=== PATIENT | male | born 1945 | race Caucasian/White ===

== ENCOUNTER 2018-08-23 18:55 | Observation (INO) | payer MEDICARE, OTHER, SELFPAY ==
[2018-08-23 18:59] VITALS: BMI 30.4
--- NOTE | 2018-08-23 19:20 | ECHOCS_ITS ---
Reason For Study: Chest Pain Procedure This was a 2D Doppler, Color Flow transthoracic echocardiogram. Contrast injection was performed. Exam performed portable in patient room. Left Ventricle Normal size and thickness. The estimated ejection fraction is 65 %. Stage 2 diastolic dysfunction. Septal motion consistent with IVCD. No regional wall motion abnormalities noted. Right Ventricle Moderately dilated right ventricle. Normal systolic function. Atria The left atrium is moderately enlarged. The right atrium is moderately enlarged. Normal atrial septum. Mitral Valve The mitral valve is structurally normal. No prolapse or stenosis seen. Mild (1+) mitral valve insufficiency. Tricuspid Valve Normal tricuspid valve. Mild (1+) tricuspid valve insufficiency. Right ventricular systolic pressure estimated to be 49 mmHg. Moderate pulmonary hypertension. Aortic Valve Trisinus/trileaflet aortic valve. Mild diffuse aortic valve thickening. There is no aortic stenosis. Trivial aortic valve insufficiency. Pulmonic Valve Normal pulmonic valve. Trivial pulmonic valve insufficiency. Great Vessels Normal aortic root. Normal arch. Normal inferior vena cava. Inferior vena cava collapse with sniff. Pericardium/Pleural No pericardial effusion. Medication Diluted definity 3ml given slow IV push to enhance endocardial definition. MMode/2D Measurements & Calculations LVIDd: 4.5 cm IVSd: 1.1 cm Ao root diam: 3.8 cm LVIDs: 2.6 cm LVPWd: 1.1 cm LA dimension: 4.0 cm RVDd: 3.9 cm FS: 42.8 % LAV(MOD-bp): 76.9 ml LA A4 area: 25.1 cm2 RA A4 area: 23.6 cm2 LAV(MOD-bp) Indexed: 36.8 ml/m2 LAV(MOD-sp2): 67.7 ml LAV(MOD-sp4): 85.2 ml Time Measurements MV dec time: 0.18 sec Doppler Measurements & Calculations MV E max duong: 113.9 cm/sec Lat Peak E' Duong: 3.4 cm/sec Med Peak E' Duong: 7.0 cm/sec MV A max duong: 85.0 cm/sec E/E' lat: 33.3 E/E' med: 16.3 MV E/A: 1.3 MV V2 max: 120.4 cm/sec MV P1/2t max duong: 121.3 cm/sec Ao V2 max: 134.9 cm/sec MV max P.8 mmHg MV P1/2t: 97.9 msec Ao max P.3 mmHg MV V2 mean: 62.5 cm/sec MV dec slope: 363.1 cm/sec2 Ao V2 mean: 90.9 cm/sec MV mean P.9 mmHg MVA(P1/2t): 2.2 cm2 Ao mean P.7 mmHg MV V2 VTI: 35.2 cm Ao V2 VTI: 29.0 cm LV V1 max: 115.6 cm/sec PA V2 max: 110.7 cm/sec TR max duong: 331.7 cm/sec LV V1 max P.3 mmHg TR max P.0 mmHg LV V1 mean P.1 mmHg LV V1 mean: 66.5 cm/sec LV V1 VTI: 24.7 cm Interpretation Summary The estimated ejection fraction is 65 %. Stage 2 diastolic dysfunction. Moderately dilated right ventricle. The left atrium is moderately enlarged. The right atrium is moderately enlarged. Mild (1+) mitral valve insufficiency. Mild (1+) tricuspid valve insufficiency. Right ventricular systolic pressure estimated to be 49 mmHg. Moderate pulmonary hypertension. The study was technically difficult. There is no comparison study available. Contrast injection was performed. Ordering Physician: Marimar Wang Referring Physician: Parvez Louise Performed By: Cam Dawson RCS
--- NOTE | 2018-08-23 19:20 | EKG12_ITS ---
Test Reason : Blood Pressure : / mmHG Vent. Rate : 055 BPM Atrial Rate : 055 BPM P-R Int : 198 ms QRS Dur : 154 ms QT Int : 530 ms P-R-T Axes : 060 065 068 degrees QTc Int : 507 ms Sinus bradycardia Right bundle branch block Abnormal ECG No previous ECGs available Confirmed by GRECIA SAUCEDA, SARI ([id number]), editorial assistant PATRICE GODWIN ([id number]) on 08/29/2018 2:06:33 PM Referred By: Marimar Wang Confirmed By:SARI PAIGE MD
[2018-08-23 19:26] VITALS: BMI 30.4
[2018-08-23 19:27] VITALS: PULSE 54
--- NOTE | 2018-08-23 19:27 | HP.PCM_ITS ---
Problem List (1) Chest pain Status: Acute Qualifiers: Chest pain type: unspecified Qualified Code(s): R07.9 - Chest pain, unspecified (2) Elevated troponin Status: Acute (3) Hypertension Status: Chronic Qualifiers: Hypertension type: essential hypertension Qualified Code(s): I10 - Essential (primary) hypertension History of Present Illness Date of Admission: 08/23/18 Chief Complaint: Chest pain - 1 day The patient is a 72 year old M past medical history of prostate cancer status post radiotherapy and chemotherapy, recently completed radiotherapy 3 weeks ago, chronic A. fib with RVR , hypertension, hypothyroidism comes in with shortness of breath as well as leg swelling noticed over the last 2 days. He has orthopnea and PND and sleeps on 2 pillows. He started complaining of chest pain worse today. Describes the chest pain as substernal, dull, associated with diaphoresis or nausea or vomiting. He describes a complex cardiac history of CABG in 1993, status post 2 stents, last cardiac cath was done in [facility] 5 years ago. He was seen in the [facility] ED and found to be in A. fib with RVR. He was given metoprolol 2.5 mg IV and was found to be intermittently in sinus bradycardia. In the ED, workup showed RBC count of 6.8, hemoglobin 11.9, platelet count of 202, sodium 138, potassium 4.3, chloride 100, bicarbonate 30, BUN 15, creatinine 1.03 , BNpep of 1300, troponins was 0.170, CTA of the chest was negative for PE. Past Medical History Past Medical History (Chronic Problems): Chronic Problems Hypertension (Chronic) Allergies water pills Adverse Reaction (Uncoded 08/23/18 19:22) gout Home Medications: Ambulatory Orders Medication Instructions Recorded Acetaminophen [Tylenol] 650 mg PO Q6H PRN 08/23/18 Albuterol Inhaler [Ventolin Hfa 2 puff INHALATION Q4H PRN PRN 08/23/18 (SP)] Amlodipine [Norvasc] 5 mg PO DAILY 08/23/18 Apixaban [Eliquis] 5 mg PO BID 08/23/18 Aspirin [Aspirin, Baby] 81 mg PO DAILY@0800 08/23/18 Atorvastatin Calcium [Lipitor] 40 mg PO QHS 08/23/18 Bicalutamide [Casodex] 150 mg PO QHS 08/23/18 Cholecalciferol (VIT D3) [Vitamin 1,000 unit PO DAILY 08/23/18 D] Clonidine HCl [Catapres] 0.1 mg PO BID PRN 08/23/18 Docusate Sodium [Colace] 100 mg PO BID 08/23/18 Levothyroxine [Synthroid] 112 mcg PO DAILY 08/23/18 Melatonin/Pyridoxine HCl (B6) 1 each PO QHS PRN 08/23/18 [Melatonin 3 mg Tablet] Metoprolol Succinate [Toprol Xl] 50 mg PO DAILY 08/23/18 Omeprazole [Prilosec] 40 mg PO DAILY 08/23/18 Sotalol HCl [Betapace AF (Beta 40 mg PO BID 08/23/18 Jennifer)] Trospium Chloride [Sanctura] 20 mg PO BID 08/23/18 traMADol [Ultram (G)] 50 mg PO Q12H PRN 08/23/18 Surgical History: cholecystectomy, total knee arthroplasty - right, - - s/p CABG, s/p 2 stent, last cardiac cath was 5 years ago Review of Systems Constitutional: Denies: Chills, Fever, Weight Change HEENT: Denies: Head Aches, Sinus Congestion, Sinus Drainage Cardiovascular: Denies: Chest Pain, Palpitations Respiratory: Denies: Cough, Shortness of breath at rest, Sputum production Gastrointestinal: Denies: Abdominal Pain, Nausea, Vomiting Genitourinary: Denies: Dysuria Musculoskeletal: Denies: Joint Pain, Joint Tenderness Skin: Denies: Rash, Wounds Neurological: Denies: Numbness, Tingling, Focal weakness Psychiatric: Denies: Anxiety, Depression, Homicidal Ideations, Suicidal Ideations Hematologic/ Lymphatic: Denies: Easy Bruising, Easy Bleeding VTE Information - Inpt Only VTE Present on Admission: No VTE Pharm Prophylaxis ordered?: Yes Patient Problems: Active and Suspected Problems Chest pain (Acute) Elevated troponin (Acute) - Physical Exam General: Alert, Oriented x3, Cooperative, No apparent distress, - - obese HEENT: Atraumatic, PERRLA, EOMI, Normocephalic Oral: Moist Mucosa Neck: Supple Lungs: Clear to auscultation, Normal air movement Cardiovascular: Regular rate, Regular Rhythm, Normal S1, Normal S2, No murmurs Abdomen: Bowel Sounds Present, Soft, Non Tender, Non-Distended, No Hepato- splenomegaly Extremities: No edema Skin: No rashes, No breakdown Musculoskeletal: No Tenderness to Palpation of Joints or Extremities Lymphatic: No Cervical, Supraclavicular, or Inguinal Adenopathy Neurological: Cranial nerves II-XII grossly intact, Neuro grossly intact Psych/Mental Status: Normal Affect, Appropriate Weight: 93.485 kg Body Mass Index (BMI) 30.4 Assessment/Plan All Active Problems Chest pain (Acute) Elevated troponin (Acute) 72 year old M past medical history of prostate cancer status post radiotherapy and chemotherapy, recently completed radiotherapy 3 weeks ago, chronic A. fib with RVR , hypertension, hypothyroidism comes in with shortness of breath as well as leg swelling noticed over the last 2 days. 1. Acute chest pain, atypical, known history of CAD status post CABG, status post stent, elevated troponin on admission at 0.172, no records in our system Plan: Admit to PCU, trend troponins, monitor on telemetry, repeat EKG, 2D-ECHO, cardiology consult 2. A. fib with RVR, rate controlled, on metoprolol and sotalol, patient has been going into bradycardia and A. fib, will hold sotalol tonight, continue only on metoprolol, continue to monitor vitals, cardiology consulted, continue on Eliquis 3. Acute CHF, unknown EF, patient follows up in [place] in [facility], admitting BNPep was more 1700, will get records from [facility], Start on Lasix 20mg IV BID, daily weights, strict I & Os. Patient expressed concern about the plan for Lasix as he reportedly got gout after use of Lasix, will check uric acid in the morning, start patient on prophylactic allopurinol. 4. Hypertension, controlled, continue home blood pressure medication 5. Hyperlipidemia, on statin 6. Hypothyroidism, on levothyroxine 7. DVT prophylaxis -on Eliquis Code Visit OBSV E&M: 89777 Initial observation care L3
[2018-08-23 19:47] VITALS: PULSE 141
[2018-08-23 19:59] VITALS: BP 134/74; PULSE 55; RESP 16; TEMP 36.6; O2SAT 97
[2018-08-23] MEDS: Docusate Sodium 100 MG Capsule PO (21:34)
[2018-08-23] MEDS: Atorvastatin Calcium 40 MG Tablet PO (21:34)
[2018-08-23] MEDS: Furosemide 20 MG/2 ML VIAL IV (21:35)
[2018-08-23] MEDS: Glucerna Shake 120 ML LIQUID PO (21:38)
[2018-08-23 21:43] VITALS: BP 136/72; PULSE 57; RESP 16; TEMP 36.6; O2SAT 96
[2018-08-23] MEDS: APIXABAN 5 MG TABLET PO (22:52)
[2018-08-23 23:03] VITALS: PULSE 58
[2018-08-23 23:06] LABS: Bedside Glucose 117 mg/dL (70-110)
[2018-08-24] VITALS (12 sets, daily range): BP systolic 131–152; BP diastolic 70–80; PULSE 58–73; RESP 16–18; TEMP 36.6–37.2; O2SAT 93–96
[2018-08-24 02:07] LABS: Absolute Lymphocyte Count 0.53 X10^3/ul (0.83-4.51); Absolute Neutrophil Count 4.5 X10^3/uL (2.0-7.7); Basophil# 0.02 X10^3/uL; Basophil% 0.3 % (0-1); Eosinophil# 0.24 X10^3/uL; Eosinophils% 4.1 % (0-5); Hematocrit 34.2 % (40-54); Hemoglobin 11.1 g/dl (13.0-16.5); Lymphocyte # 0.53 X10^3/ul (4.0); Lymphocyte % 9.1 % (19-41); Mean Corp Hgb Conc 32.5 g/gl (32-36); Mean Corpuscular Hgb 30.1 pg (27.0-32.0); Mean Corpuscular Volume 92.7 fL (80-94); Mean Platelet Vol. 10.2 fl (6.2-12.0); Monocyte# 0.58 X10^3/uL; Monocyte% 9.9 % (0-10); Neutrophil # 4.46 X10^3/uL (2.7-7.7); Neutrophil % 76.6 % (47-70); Platelet Count 189 K/mm3 (150-450); RBC Distribution Width CV 14.9 % (11.6-14.6); RBC Distribution Width SD 48.1 fl (35.1-43.9); Red Blood Count 3.69 M/mm3 (4.6-6.2); White Blood Count 5.8 K/mm3 (4.4-11.0)
[2018-08-24 02:09] LABS: International Normalized Ratio 1.7; Prothrombin Time (Protime)PT. 19.8 SECONDS (11.7-14.9)
[2018-08-24 02:10] LABS: Differential Indicated SCAN CRITERIA MET; POSITIVE COUNT NO; POSITIVE DIFFERENTIAL YES; POSITIVE MORPHOLOGY NO; Partial Thromboplast Time 35.7 Seconds (24.1-36.2)
[2018-08-24 02:28] LABS: Anion Gap 9 (5-15); BUN 13 mg/dL (7-18); BUN/Creat Ratio 13.8 RATIO (10-20); Calcium,Total 8.6 mg/dL (8.5-10.1); Chloride 101 mmol/L (98-107); Creatinine, Serum 0.94 mg/dL (0.70-1.30); EST Glomerular Filtration Rate 84 mL/min (>60); Est Glom Filt Rate - Afr Amer 101 mL/min (>60); Estimated Creatinine Clearance 72.08 ml/min; Glucose 101 mg/dL (74-106); Potassium 3.6 mmol/L (3.5-5.1); Sodium Level 139 mmol/L (136-145); Uric Acid 7.2 mg/dL (3.5-7.2)
[2018-08-24] MEDS: Acetaminophen 325 MG Tablet 650 MG PO ×3 (02:51→21:27)
[2018-08-24 03:00] LABS: Differential Comment SCANNED
--- NOTE | 2018-08-24 05:55 | RAD_ITS ---
STUDY: X-RAY CHEST REASON FOR EXAM: Male, 72 years old. Chest pain. TECHNIQUE: Single AP portable view of the chest. COMPARISON: None. FINDINGS: EKG electrodes are seen. Mild increased markings at the left lung base suggestive of left basilar atelectasis. There is no demonstrated pleural abnormality. Sternal cerclage wires and vascular clips are present from a prior sternotomy and coronary artery bypass graft procedure (CABG). Normal mediastinum and jesica. Normal visualized pulmonary arteries. Normal visualized aortic arch and descending thoracic aorta. There are diffuse degenerative changes of the visualized thoracic spine. Mild levoscoliosis. There is degenerative osteoarthritis of the bilateral shoulders. Moderate sized hiatal hernia. RAD/Chest 1 View (Portable) IMPRESSION: Mild increased markings at the left lung base suggestive of underlying atelectasis and/or scarring. Electronically Signed: Eugene Mondragon MD at 11:02 EST Tel [phone], Service support ,
--- NOTE | 2018-08-24 05:55 | EKG12_ITS ---
Test Reason : Blood Pressure : / mmHG Vent. Rate : 058 BPM Atrial Rate : 058 BPM P-R Int : 194 ms QRS Dur : 154 ms QT Int : 538 ms P-R-T Axes : 050 078 055 degrees QTc Int : 528 ms Sinus bradycardia Right bundle branch block Abnormal ECG When compared with ECG of 23-AUG-2018 19:46, MANUAL COMPARISON REQUIRED, DATA IS UNCONFIRMED Confirmed by GRECIA SAUCEDA, SARI ([id number]), editorial intern PATRICE GODWIN ([id number]) on 08/29/2018 2:04:18 PM Referred By: Marimar Wang Confirmed By:SARI PAIGE MD
[2018-08-24] MEDS: Levothyroxine 112 MCG Tablet PO (06:20)
[2018-08-24] MEDS: Aspirin 81 MG TAB.CHEW PO (08:14)
[2018-08-24] MEDS: Allopurinol 100 MG Tablet PO (08:14)
--- NOTE | 2018-08-24 10:48 | PCM.CONS.C ---
Problem List (1) Chest pain Status: Acute Qualifiers: Chest pain type: unspecified Qualified Code(s): R07.9 - Chest pain, unspecified (2) Elevated troponin Status: Acute (3) Hypertension Status: Chronic Qualifiers: Hypertension type: essential hypertension Qualified Code(s): I10 - Essential (primary) hypertension Reason for Consult Date of Consultation: 08/24/18 Reason for Consultation: Chest pain, coronary artery disease, non-STEMI, hypertension, diabetes, asthma History of Present Illness: The patient is a 72 year old M, former patient of Dr. Lopez, usually a [facility] patient, with a history of hypertension, hypercholesterolemia, diabetes, former smoker who quit in 1993, paroxysmal atrial fibrillation currently in normal sinus rhythm. In addition he has a history of coronary artery disease status post 5 vessel bypass surgery in 1993 at the [facility] at [facility]. I do not have the details of his catheterization but reportedly according to the patient a repeat catheterization done about 5 years ago demonstrated 4 out of 5 grafts to be occluded and that medical management was invoked at that time. He was told that there were no other areas that could be stented. Superimposed upon this the patient has had 4 stents in his left leg, one stent in his right leg, and 2 stents in his heart at [facility] by Dr. Lopez and colleagues about 10 years ago. Patient was doing well until around this weekend when he developed swelling in his legs, shortness of breath, and severe chest pain with no associated nausea vomiting or sweating. Patient reported to [facility] was found to have normal sinus rhythm with occasional bursts of SVT which were self terminating. His initial troponin was 0.172, and he was transferred here for further care. On further history he denies any exertional chest pain, angina and has been undergoing x-ray therapy for prostate cancer directed towards his pelvis for the last 8 weeks, completed about 3 weeks ago. He states that it is not metastatic. Currently the patient is on Eliquis for paroxysmal atrial fibrillation and has been compliant with that. Chest x-ray showed no significant pulmonary infiltrates. He has no significant edema this morning. [] Past Medical History Allergies/Adverse Reactions: Allergies water pills Adverse Reaction (Uncoded 08/23/18 19:22) gout Home Medications: Ambulatory Orders Medication Instructions Recorded Acetaminophen [Tylenol] 650 mg PO Q6H PRN 08/23/18 Albuterol Inhaler [Ventolin Hfa 2 puff INHALATION Q4H PRN PRN 08/23/18 (SP)] Amlodipine [Norvasc] 5 mg PO DAILY 08/23/18 Apixaban [Eliquis] 5 mg PO BID 08/23/18 Aspirin [Aspirin, Baby] 81 mg PO DAILY@0800 08/23/18 Atorvastatin Calcium [Lipitor] 40 mg PO QHS 08/23/18 Bicalutamide [Casodex] 150 mg PO QHS 08/23/18 Cholecalciferol (VIT D3) [Vitamin 1,000 unit PO DAILY 08/23/18 D] Clonidine HCl [Catapres] 0.1 mg PO BID PRN 08/23/18 Docusate Sodium [Colace] 100 mg PO BID 08/23/18 Levothyroxine [Synthroid] 112 mcg PO DAILY 08/23/18 Melatonin/Pyridoxine HCl (B6) 1 each PO QHS PRN 08/23/18 [Melatonin 3 mg Tablet] Metoprolol Succinate [Toprol Xl] 50 mg PO DAILY 08/23/18 Omeprazole [Prilosec] 40 mg PO DAILY 08/23/18 Sotalol HCl [Betapace AF (Beta 40 mg PO BID 08/23/18 Jennifer)] Trospium Chloride [Sanctura] 20 mg PO BID 08/23/18 traMADol [Ultram (G)] 50 mg PO Q12H PRN 08/23/18 Past Medical History (Chronic Problems): Chronic Problems Hypertension (Chronic) Surgical History: cholecystectomy, total knee arthroplasty - right, - - s/p CABG, s/p 2 stent, last cardiac cath was 5 years ago Smoking Status: Former smoker Tobacco Use: Cigarettes Review of Systems - Review of Systems General: Denies: Fever, Night Sweats, Fatigue Cardiovascular: Reports: Chest Discomfort, Chest Discomfort at Rest, Chest Heaviness, Shortness of Breath, Peripheral Edema. Denies: Orthopnea, PND, Palpitations, Lightheadedness, Dizziness, Near Syncope, Syncope Respiratory: Denies: Cough, Sputum Production, Hemoptysis Gastrointestinal: Denies: Hematemesis, Hematochezia, Melena Genitourinary: Denies: Dysuria, Hematuria Skin: Denies: Rash Subjectve: Patient laying in bed, no acute distress. Objective: Vital Signs Temp Pulse Resp BP Pulse Ox 98.5 F 58 L 16 140/72 H 93 08/24/18 03:42 08/24/18 07:16 08/24/18 03:42 08/24/18 03:42 08/24/18 03:43 Oxygen Delivery Method Room Air Weight: 205 lb 4.006 oz Body Mass Index (BMI) 30.4 Intake and Output for Last 24 Hours 08/22/18 08/23/18 08/24/18 23:59 23:59 23:59 Intake Total 240 / 240 Output Total 375 / 375 Balance -135 / -135 General: Awake, Alert, Oriented x 3 HEENT: PERRL, EOMI, Sclera Non Icteric Neck: Supple, Good ROM, No Lymph Node Enlargement Lungs: Clear to auscultation Cardiovascular: Regular Rhythm, Normal S1, Normal S2, No Murmurs, No Rubs, No Gallops Vascular: No Carotid Bruits, Normal Femoral Pulses, Normal Radial Pulses, Normal Dorsalis Pedal Pulse, Normal Posterior Tibial Pulses Abdomen: Bowel Sounds Present, Soft, Non Tender, No HSM, No Organomegaly Extremities: No Cyanosis, No Clubbing, No edema Neurological: No Focal Motor or Sensory Deficit 08/23/18 20:42: Troponin I 0.173 H 08/23/18 23:08: Troponin I 0.160 H 08/24/18 02:00: Sodium 139, Potassium 3.6, Chloride 101, Carbon Dioxide 29.0, Anion Gap 9, BUN 13, Creatinine 0.94, Est GFR (MDRD) Af Amer 101, Est GFR (MDRD) Non-Af 84, BUN/Creatinine Ratio 13.8, Glucose 101, Uric Acid 7.2, Calcium 8.6 08/24/18 02:00: WBC 5.8, RBC 3.69 L, Hgb 11.1 L, Hct 34.2 L, MCV 92.7, MCH 30.1, MCHC 32.5, RDW 14.9 H, RDW Differential 48.1 H, Plt Count 189, MPV 10.2, Immature Gran % (Auto) 0.000, Neut % (Auto) 76.6 H, Lymph % (Auto) 9.1 L, Porter % (Auto) 9.9, Eos % (Auto) 4.1, Baso % (Auto) 0.3, Absolute Neuts (auto) 4.5, Total Counted Not Reportable 08/24/18 02:00: Troponin I 0.149 H 08/24/18 02:00: PT 19.8 H, INR 1.7, APTT 35.7 Rhythm: Normal sinus rhythm with occasional PVCs and ventricular couplets. EKG: Normal sinus rhythm with right bundle branch block, no acute changes. ECHO: Pending Stress Test: Cardiac Cath: PCI: CT Surgery: Holter monitor: EPS: PPM: CXR: Chest CT Scan: Assessment/Plan 1. Coronary artery disease: The patient appears to have significant multivessel coronary artery disease and is status post 5 vessel bypass in 1993. According to the patient and his daughter, 4 out of his 5 grafts have occluded, as well as his stents. It is my impression the patient may have only his CLAIRE to his LAD patent at this time. He was told that there could be no further intervention and no repeat bypass recommended a proximally 5 years ago with a catheterization at the [facility] in [facility]. This point I would continue the patient on baby aspirin, hold his Eliquis in case he may require repeat catheterization, and obtain his old catheterization films and report from the HI at [facility]. After reviewing the catheterization films, we will determine whether he would benefit from repeat catheterization. 2. Prostate cancer: Would recommend a d-dimer to determine if the patient had a possible pulmonary embolism. If this is abnormal he may require a CT scan of the chest to rule out pulmonary embolism. 3. Atrial fibrillation: The patient is currently normal sinus rhythm but appears to have burst of SVT which may be causing him his symptoms. Continue beta-jennifer therapy at current rate. 4. Hyperlipidemia: Recommend obtaining a fasting lipid profile. His LDL should be less than 70. Continue Lipitor. 5. Thank you very much for the opportunity to participate in the cardiac care of your patient. Consultation time took place between 10 AM and 10:35 AM. Discussed with patient and his daughter. Code Visit Inpatient E&M: 63960 Init Hosp L2
--- NOTE | 2018-08-24 10:52 | CON.PCM_ITS ---
Problem List (1) Chest pain Status: Acute Qualifiers: Chest pain type: unspecified Qualified Code(s): R07.9 - Chest pain, unspecified (2) Elevated troponin Status: Acute (3) Hypertension Status: Chronic Qualifiers: Hypertension type: essential hypertension Qualified Code(s): I10 - Essential (primary) hypertension Reason for Consult Date of Consultation: 08/24/18 Reason for Consultation: Chest pain, coronary artery disease, non-STEMI, hypertension, diabetes, asthma History of Present Illness: The patient is a 72 year old M, former patient of Dr. Lopez, usually a [facility] patient, with a history of hypertension, hypercholesterolemia, diabetes, former smoker who quit in 1993, paroxysmal atrial fibrillation currently in normal sinus rhythm. In addition he has a history of coronary artery disease status post 5 vessel bypass surgery in 1993 at the [facility] at [facility]. I do not have the details of his catheterization but reportedly according to the patient a repeat catheterization done about 5 years ago demonstrated 4 out of 5 grafts to be occluded and that medical management was invoked at that time. He was told that there were no other areas that could be stented. Superimposed upon this the patient has had 4 stents in his left leg, one stent in his right leg, and 2 stents in his heart at [facility] by Dr. Lopez and colleagues about 10 years ago. Patient was doing well until around this weekend when he developed swelling in his legs, shortness of breath, and severe chest pain with no associated nausea vomiting or sweating. Patient reported to [facility] was found to have normal sinus rhythm with occasional bursts of SVT which were self terminating. His initial troponin was 0.172, and he was transferred here for further care. On further history he denies any exertional chest pain, angina and has been undergoing x-ray therapy for prostate cancer directed towards his pelvis for the last 8 weeks, completed about 3 weeks ago. He states that it is not metastatic. Currently the patient is on Eliquis for paroxysmal atrial fibrillation and has been compliant with that. Chest x-ray showed no significant pulmonary infiltrates. He has no significant edema this morning. [] Past Medical History Allergies/Adverse Reactions: Allergies water pills Adverse Reaction (Uncoded 08/23/18 19:22) gout Home Medications: Ambulatory Orders Medication Instructions Recorded Acetaminophen [Tylenol] 650 mg PO Q6H PRN 08/23/18 Albuterol Inhaler [Ventolin Hfa 2 puff INHALATION Q4H PRN PRN 08/23/18 (SP)] Amlodipine [Norvasc] 5 mg PO DAILY 08/23/18 Apixaban [Eliquis] 5 mg PO BID 08/23/18 Aspirin [Aspirin, Baby] 81 mg PO DAILY@0800 08/23/18 Atorvastatin Calcium [Lipitor] 40 mg PO QHS 08/23/18 Bicalutamide [Casodex] 150 mg PO QHS 08/23/18 Cholecalciferol (VIT D3) [Vitamin 1,000 unit PO DAILY 08/23/18 D] Clonidine HCl [Catapres] 0.1 mg PO BID PRN 08/23/18 Docusate Sodium [Colace] 100 mg PO BID 08/23/18 Levothyroxine [Synthroid] 112 mcg PO DAILY 08/23/18 Melatonin/Pyridoxine HCl (B6) 1 each PO QHS PRN 08/23/18 [Melatonin 3 mg Tablet] Metoprolol Succinate [Toprol Xl] 50 mg PO DAILY 08/23/18 Omeprazole [Prilosec] 40 mg PO DAILY 08/23/18 Sotalol HCl [Betapace AF (Beta 40 mg PO BID 08/23/18 Jennifer)] Trospium Chloride [Sanctura] 20 mg PO BID 08/23/18 traMADol [Ultram (G)] 50 mg PO Q12H PRN 08/23/18 Past Medical History (Chronic Problems): Chronic Problems Hypertension (Chronic) Surgical History: cholecystectomy, total knee arthroplasty - right, - - s/p CABG, s/p 2 stent, last cardiac cath was 5 years ago Smoking Status: Former smoker Tobacco Use: Cigarettes Review of Systems - Review of Systems General: Denies: Fever, Night Sweats, Fatigue Cardiovascular: Reports: Chest Discomfort, Chest Discomfort at Rest, Chest Heaviness, Shortness of Breath, Peripheral Edema. Denies: Orthopnea, PND, Palpitations, Lightheadedness, Dizziness, Near Syncope, Syncope Respiratory: Denies: Cough, Sputum Production, Hemoptysis Gastrointestinal: Denies: Hematemesis, Hematochezia, Melena Genitourinary: Denies: Dysuria, Hematuria Skin: Denies: Rash Subjectve: Patient laying in bed, no acute distress. Objective: Vital Signs Temp Pulse Resp BP Pulse Ox 98.5 F 58 L 16 140/72 H 93 08/24/18 03:42 08/24/18 07:16 08/24/18 03:42 08/24/18 03:42 08/24/18 03:43 Oxygen Delivery Method Room Air Weight: 205 lb 4.006 oz Body Mass Index (BMI) 30.4 Intake and Output for Last 24 Hours 08/22/18 08/23/18 08/24/18 23:59 23:59 23:59 Intake Total 240 / 240 Output Total 375 / 375 Balance -135 / -135 General: Awake, Alert, Oriented x 3 HEENT: PERRL, EOMI, Sclera Non Icteric Neck: Supple, Good ROM, No Lymph Node Enlargement Lungs: Clear to auscultation Cardiovascular: Regular Rhythm, Normal S1, Normal S2, No Murmurs, No Rubs, No Gallops Vascular: No Carotid Bruits, Normal Femoral Pulses, Normal Radial Pulses, Normal Dorsalis Pedal Pulse, Normal Posterior Tibial Pulses Abdomen: Bowel Sounds Present, Soft, Non Tender, No HSM, No Organomegaly Extremities: No Cyanosis, No Clubbing, No edema Neurological: No Focal Motor or Sensory Deficit 08/23/18 20:42: Troponin I 0.173 H 08/23/18 23:08: Troponin I 0.160 H 08/24/18 02:00: Sodium 139, Potassium 3.6, Chloride 101, Carbon Dioxide 29.0, Anion Gap 9, BUN 13, Creatinine 0.94, Est GFR (MDRD) Af Amer 101, Est GFR (MDRD) Non-Af 84, BUN/Creatinine Ratio 13.8, Glucose 101, Uric Acid 7.2, Calcium 8.6 08/24/18 02:00: WBC 5.8, RBC 3.69 L, Hgb 11.1 L, Hct 34.2 L, MCV 92.7, MCH 30.1, MCHC 32.5, RDW 14.9 H, RDW Differential 48.1 H, Plt Count 189, MPV 10.2, Immature Gran % (Auto) 0.000, Neut % (Auto) 76.6 H, Lymph % (Auto) 9.1 L, [place] % (Auto) 9.9, Eos % (Auto) 4.1, Baso % (Auto) 0.3, Absolute Neuts (auto) 4.5, Total Counted Not Reportable 08/24/18 02:00: Troponin I 0.149 H 08/24/18 02:00: PT 19.8 H, INR 1.7, APTT 35.7 Rhythm: Normal sinus rhythm with occasional PVCs and ventricular couplets. EKG: Normal sinus rhythm with right bundle branch block, no acute changes. ECHO: Pending Stress Test: Cardiac Cath: PCI: CT Surgery: Holter monitor: EPS: PPM: CXR: Chest CT Scan: Assessment/Plan 1. Coronary artery disease: The patient appears to have significant multivessel coronary artery disease and is status post 5 vessel bypass in 1993. According to the patient and his daughter, 4 out of his 5 grafts have occluded, as well as his stents. It is my impression the patient may have only his CLAIRE to his LAD patent at this time. He was told that there could be no further intervention and no repeat bypass recommended a proximally 5 years ago with a catheterization at the [facility] in [facility]. This point I would continue the patient on baby aspirin, hold his Eliquis in case he may require repeat catheterization, and obtain his old catheterization films and report from the [facility] at [facility]. After reviewing the catheterization films, we will determine whether he would benefit from repeat catheterization. 2. Prostate cancer: Would recommend a d-dimer to determine if the patient had a possible pulmonary embolism. If this is abnormal he may require a CT scan of the chest to rule out pulmonary embolism. 3. Atrial fibrillation: The patient is currently normal sinus rhythm but appears to have burst of SVT which may be causing him his symptoms. Continue beta-jennifer therapy at current rate. 4. Hyperlipidemia: Recommend obtaining a fasting lipid profile. His LDL should be less than 70. Continue Lipitor. 5. Thank you very much for the opportunity to participate in the cardiac care of your patient. Consultation time took place between 10 AM and 10:35 AM. Discussed with patient and his daughter. Code Visit Inpatient E&M: 37187 Init Hosp L2
[2018-08-24] MEDS: Docusate Sodium 100 MG Capsule PO (11:03)
[2018-08-24] MEDS: Tolterodine Tartrate 2 MG CAP.SA PO (11:03)
[2018-08-24] MEDS: Metoprolol(XL)Succ 50 MG Tablet PO (11:04)
[2018-08-24] MEDS: Furosemide 20 MG/2 ML VIAL IV ×2 (11:04→18:30)
[2018-08-24] MEDS: Pantoprazole Sodium 40 MG Tablet PO (11:04)
[2018-08-24] MEDS: amLODIPine 5 MG Tablet PO (11:04)
[2018-08-24] MEDS: 0.9% NaCl Peripheral Flush Adult/Peds IV ×2 (11:07→18:30)
[2018-08-24 11:21] LABS: Bedside Glucose 96 mg/dL (70-110)
[2018-08-24 11:43] LABS: Cholesterol 128 mg/dL (200); High Density Lipoprotein 37 mg/dL; Triglycerides 142 mg/dL; Very Low Density Lipoprotein 28 mg/dL (5-40)
[2018-08-24 11:45] LABS: D-Dimer Quantitative (DVT/PE) 0.38 FEU/ug/m (0.27-0.49)
--- NOTE | 2018-08-24 13:52 | PCM.PROGNOTE ---
Patient Problems: Active and Suspected Problems Chest pain (Acute) Elevated troponin (Acute) Subjective: Patient seen and examined. Denies further chest pain. Denies shortness of breath. No other current complaints. Possible repeat cardiac catheterization, awaiting old cath films from [place]. - Physical Exam General: Alert, Oriented x3, Cooperative HEENT: Atraumatic, PERRLA, EOMI, Normocephalic Neck: Supple, No JVD, Negative Carotid Bruits Lungs: Clear to auscultation, Normal air movement Cardiovascular: Regular rate, Regular Rhythm, Normal S1, Normal S2, No murmurs Abdomen: Bowel Sounds Present, Soft, Non Tender, Non-Distended Extremities: No clubbing, No cyanosis, No edema, Capillary Refill Less than 3 Seconds Skin: No rashes, No breakdown Musculoskeletal: No Tenderness to Palpation of Joints or Extremities Neurological: Cranial nerves II-XII grossly intact, Neuro grossly intact Psych/Mental Status: Normal Affect, Appropriate Vital Signs Temp Pulse Resp BP Pulse Ox 98.2 F 68 16 152/70 H 96 08/24/18 10:40 08/24/18 11:14 08/24/18 10:40 08/24/18 10:40 08/24/18 10:40 Oxygen Delivery Method Room Air Weight: 205 lb 4.006 oz Body Mass Index (BMI) 30.4 Intake and Output for Last 24 Hours 08/22/18 08/23/18 08/24/18 23:59 23:59 23:59 Intake Total 240 / 240 200 / 200 Output Total 375 / 375 Balance -135 / -135 200 / 200 Laboratory Tests Past 24 Hrs 08/23/18 08/23/18 08/24/18 20:42 23:08 02:00 WBC RBC Hgb Hct MCV MCH MCHC RDW RDW Differential Plt Count MPV Immature Gran % (Auto) Neut % (Auto) Lymph % (Auto) [place] % (Auto) Eos % (Auto) Baso % (Auto) Absolute Neuts (auto) Absolute Lymphs (auto) Total Counted Differential Comment PT INR APTT D-Dimer Quant (PE/DVT) Sodium 139 Potassium 3.6 Chloride 101 Carbon Dioxide 29.0 Anion Gap 9 BUN 13 Creatinine 0.94 Estim Creat Clear Calc 72.08 Est GFR (MDRD) Af Amer 101 Est GFR (MDRD) Non-Af 84 BUN/Creatinine Ratio 13.8 Glucose 101 Uric Acid 7.2 Calcium 8.6 Troponin I 0.173 H 0.160 H Triglycerides Cholesterol LDL Cholesterol VLDL Cholesterol HDL Cholesterol 08/24/18 08/24/18 08/24/18 02:00 02:00 02:00 WBC 5.8 RBC 3.69 L Hgb 11.1 L Hct 34.2 L MCV 92.7 MCH 30.1 MCHC 32.5 RDW 14.9 H RDW Differential 48.1 H Plt Count 189 MPV 10.2 Immature Gran % (Auto) 0.000 Neut % (Auto) 76.6 H Lymph % (Auto) 9.1 L [place] % (Auto) 9.9 Eos % (Auto) 4.1 Baso % (Auto) 0.3 Absolute Neuts (auto) 4.5 Absolute Lymphs (auto) 0.53 L Total Counted Not Reportable Differential Comment SCANNED PT 19.8 H INR 1.7 APTT 35.7 D-Dimer Quant (PE/DVT) Sodium Potassium Chloride Carbon Dioxide Anion Gap BUN Creatinine Estim Creat Clear Calc Est GFR (MDRD) Af Amer Est GFR (MDRD) Non-Af BUN/Creatinine Ratio Glucose Uric Acid Calcium Troponin I 0.149 H Triglycerides Cholesterol LDL Cholesterol VLDL Cholesterol HDL Cholesterol 08/24/18 08/24/18 02:00 02:00 WBC RBC Hgb Hct MCV MCH MCHC RDW RDW Differential Plt Count MPV Immature Gran % (Auto) Neut % (Auto) Lymph % (Auto) [place] % (Auto) Eos % (Auto) Baso % (Auto) Absolute Neuts (auto) Absolute Lymphs (auto) Total Counted Differential Comment PT INR APTT D-Dimer Quant (PE/DVT) 0.38 Sodium Potassium Chloride Carbon Dioxide Anion Gap BUN Creatinine Estim Creat Clear Calc Est GFR (MDRD) Af Amer Est GFR (MDRD) Non-Af BUN/Creatinine Ratio Glucose Uric Acid Calcium Troponin I Triglycerides 142 Cholesterol 128 LDL Cholesterol 63 VLDL Cholesterol 28 HDL Cholesterol 37 L POC Glucose 08/24/18 08/23/18 11:11 22:56 POC Glucose 96 117 H Medical Necessity - Tobacco Use Smoking Status: Former smoker Tobacco Use: Cigarettes Assessment/Plan All Active Problems Chest pain (Acute) Elevated troponin (Acute) 1. Chest pain, indeterminate troponin-underlying history of CAD status post CABG and stents. Cardiology following. Continue aspirin, statin, beta-parveen. Echocardiogram shows an EF of 65%. [facility] Records requested from prior caths. Possible repeat catheterization. Eliquis on hold. Continue aspirin, statin, beta-parveen. 2. Atrial fibrillation with RVR-currently sinus rhythm. Continue metoprolol. Eliquis on hold. 3. Acute on chronic diastolic CHF-BNP greater than 1700. Echocardiogram shows an EF of 65%, stage II diastolic dysfunction, mild mitral valve insufficiency, mild tricuspid valve insufficiency, RVSP estimated to be 49 mmHg. Continue IV Lasix. Strict I&O. Daily weight. Cardiology following. 4. Hyperlipidemia-continue statin. 5. Hypertension-stable, continue home amlodipine, metoprolol regimen. Sotalol on hold. 6. GERD-continue PPI. 7. Hypothyroidism-continue Synthroid regimen. 8. Prostate cancer-status post radiation and chemotherapy. Completed treatment 3 weeks ago. Continue home medication regimen. DVT prophylaxis- SCDs. Eliquis on hold due to plans for cath. This patient was seen by LUIS ENRIQUE Schwarz under the supervision of Dr. Busby.
[2018-08-24] MEDS: Glucerna Shake 120 ML LIQUID PO ×3 (14:07→21:26)
--- NOTE | 2018-08-24 15:54 | CHAPLAIN ---
Type of Pastoral Visit _x__ Initial Visit ___ Follow-up Visit ___ On-call Visit ___ General Patient Visit ___ Spiritual Assessment ___ Family Conference ___ Bereavement ___ Rapid Response ___ Code Blue ___ Other (describe below) Pastoral Care Referral From _x__ Patient ___ Family ___ Nurse ___ Physician ___ Plum Packer ___ Crusher Loader Equipment Operator ___ Other (describe below) Sacrament/Intervention _x__ Active listening ___ Anointing ___ Jainism ___ Bereavement ___ Communion ___ Charla exploration ___ ___ Life review ___ Prayer ___ Reconciliation ___ Sacrament of Sick ___ Supportive presence ___ Wedding ___ Other (describe below) Pastoral Comments two daughters are with patient in the room; story unfolds that spouse of pt is also admitted to the hospital at same time; patient has ongoing health concerns and is normally a [facility] pt; [place] did not have beds at this time; pt says that he likes this hospital and glad he is here, especially because is also admitted here
[2018-08-24] MEDS: Atorvastatin Calcium 40 MG Tablet PO (21:27)
[2018-08-24] MEDS: MELATONIN 3 MG TABLET PO (21:28)
[2018-08-25] VITALS (7 sets, daily range): BP systolic 118–135; BP diastolic 54–67; PULSE 58–75; RESP 16–20; TEMP 36.4–37.2; O2SAT 93–97
[2018-08-25 01:06] LABS: Bedside Glucose 119 mg/dL (70-110)
[2018-08-25] MEDS: Levothyroxine 112 MCG Tablet PO (05:21)
[2018-08-25 06:50] LABS: Anion Gap 10 (5-15); BUN 20 mg/dL (7-18); Calcium,Total 8.7 mg/dL (8.5-10.1); Chloride 101 mmol/L (98-107); EST Glomerular Filtration Rate 78 mL/min (>60); Est Glom Filt Rate - Afr Amer 95 mL/min (>60); Estimated Creatinine Clearance 67.75 ml/min; Glucose 107 mg/dL (74-106); Potassium 3.6 mmol/L (3.5-5.1); Sodium Level 140 mmol/L (136-145)
[2018-08-25] MEDS: Glucerna Shake 120 ML LIQUID PO (09:52)
[2018-08-25] MEDS: Docusate Sodium 100 MG Capsule PO (09:52)
[2018-08-25] MEDS: Allopurinol 100 MG Tablet PO (09:53)
[2018-08-25] MEDS: Metoprolol(XL)Succ 50 MG Tablet PO (09:53)
[2018-08-25] MEDS: amLODIPine 5 MG Tablet PO (09:53)
[2018-08-25] MEDS: Pantoprazole Sodium 40 MG Tablet PO (09:53)
[2018-08-25] MEDS: Aspirin 81 MG TAB.CHEW PO (09:53)
[2018-08-25] MEDS: Tolterodine Tartrate 2 MG CAP.SA PO (09:54)
[2018-08-25 10:06] LABS: Bedside Glucose 107 mg/dL (70-110)
--- NOTE | 2018-08-25 10:26 | PCM.PN.CARD ---
Subjectve: Patient doing better this morning, had no chest pain or shortness of breath with basic ambulation to the bathroom. [facility] although the dates on the document appear to be sooner than that. It appears the patient has occlusion of his vein graft to his RCA and circumflex system, and occluded LAD, an occluded RCA, a patent CLAIRE to the LAD, a 20% ostial left main, and a 40% distal left circumflex and a small vessel. Unfortunately the films did not come with the patient. Patient reports his breathing is much better after diuretic therapy. Objective: Vital Signs Temp Pulse Resp BP Pulse Ox 98.6 F 62 16 126/54 H 93 08/25/18 08:31 08/25/18 09:53 08/25/18 08:31 08/25/18 08:31 08/25/18 08:31 Oxygen Delivery Method CPAP Weight: 206 lb 2.115 oz Body Mass Index (BMI) 30.4 Intake and Output for Last 24 Hours 08/23/18 08/24/18 08/25/18 23:59 23:59 23:59 Intake Total 240 / 240 920 / 920 20 Output Total 375 / 375 Balance -135 / -135 920 / 920 General: Awake, Alert, Oriented x 3 HEENT: PERRL, EOMI, Sclera Non Icteric Neck: Supple, Good ROM, No Lymph Node Enlargement Lungs: Clear to auscultation Cardiovascular: Regular Rhythm, Normal S1, Normal S2, No Murmurs, No Rubs, No Gallops Vascular: No Carotid Bruits, Normal Femoral Pulses, Normal Radial Pulses, Normal Dorsalis Pedal Pulse, Normal Posterior Tibial Pulses Abdomen: Bowel Sounds Present, Soft, Non Tender, No HSM, No Organomegaly Extremities: No Cyanosis, No Clubbing, No edema Neurological: No Focal Motor or Sensory Deficit 08/24/18 02:00: D-Dimer Quant (PE/DVT) 0.38 08/24/18 02:00: Triglycerides 142, Cholesterol 128, LDL Cholesterol 63, VLDL Cholesterol 28, HDL Cholesterol 37 L 08/25/18 06:14: Sodium 140, Potassium 3.6, Chloride 101, Carbon Dioxide 29.0, Anion Gap 10, BUN 20 H, Creatinine 1.00, Est GFR (MDRD) Af Amer 95, Est GFR (MDRD) Non-Af 78, BUN/Creatinine Ratio 20.0, Glucose 107 H, Calcium 8.7 Rhythm: EKG: ECHO: Stress Test: Cardiac Cath: PCI: CT Surgery: Holter monitor: EPS: PPM: CXR: Chest CT Scan: Medical Necessity - Tobacco Use Smoking Status: Former smoker Tobacco Use: Cigarettes Assessment/Plan 1. Coronary artery disease: The patient appears to have significant multivessel coronary artery disease and is status post 5 vessel bypass in 1993. According to the patient and his daughter, 4 out of his 5 grafts have occluded, as well as his stents. It is my impression the patient may have only his CLAIRE to his LAD patent at this time. The catheterization film from [facility] from 2012 confirms this. He was told that there could be no further intervention and no repeat bypass recommended a proximally 5 years ago with a catheterization at the [place] in [facility]. This point I would continue the patient on baby aspirin, hold his Eliquis in case he may require repeat catheterization, and obtain his old catheterization films and report from the [place] at [facility]. Given the above findings on his cath report I recommend the patient undergo a repeat catheterization to determine if he has had progression of coronary disease to explain his anginal symptoms, as there may be options for percutaneous corrective measures. Patient does not appear to want to pursue that at this time and wishes to discuss it with his family. Would recommend continuing to hold his Eliquis and if he decides to proceed with catheterization we will load him with 300 mg of Plavix today followed by catheterization tomorrow morning. If the patient wishes to pursue medical management would recommend Ranexa 500 mg p.o. twice daily in addition to his antihypertensive therapy in order to treat non-correctable coronary artery disease. 2. Prostate cancer: Would recommend a d-dimer to determine if the patient had a possible pulmonary embolism. If this is abnormal he may require a CT scan of the chest to rule out pulmonary embolism. 3. Atrial fibrillation: The patient is currently normal sinus rhythm but appears to have burst of SVT which may be causing him his symptoms. Continue beta-parveen therapy at current rate. Patient did have a burst of SVT yesterday which were self terminating. 4. Hyperlipidemia: Recommend obtaining a fasting lipid profile. His LDL should be less than 70. Continue Lipitor. 5. Thank you very much for the opportunity to participate in the cardiac care of your patient. Discussed with Dr. Busby. If patient wishes to be discharged, would recommend restarting his Eliquis and having him follow-up with Dr. Tim going forward. Code Visit Inpatient E&M: 55755 Subs Hosp L2
--- NOTE | 2018-08-25 10:30 | PN.CARD_ITS ---
Subjectve: Patient doing better this morning, had no chest pain or shortness of breath with basic ambulation to the bathroom. [facility] although the dates on the document appear to be sooner than that. It appears the patient has occlusion of his vein graft to his RCA and circumflex system, and occluded LAD, an occluded RCA, a patent CLAIRE to the LAD, a 20% ostial left main, and a 40% distal left circumflex and a small vessel. Unfortunately the films did not come with the patient. Patient reports his breathing is much better after diuretic therapy. Objective: Vital Signs Temp Pulse Resp BP Pulse Ox 98.6 F 62 16 126/54 H 93 08/25/18 08:31 08/25/18 09:53 08/25/18 08:31 08/25/18 08:31 08/25/18 08:31 Oxygen Delivery Method CPAP Weight: 206 lb 2.115 oz Body Mass Index (BMI) 30.4 Intake and Output for Last 24 Hours 08/23/18 08/24/18 08/25/18 23:59 23:59 23:59 Intake Total 240 / 240 920 / 920 20 Output Total 375 / 375 Balance -135 / -135 920 / 920 General: Awake, Alert, Oriented x 3 HEENT: PERRL, EOMI, Sclera Non Icteric Neck: Supple, Good ROM, No Lymph Node Enlargement Lungs: Clear to auscultation Cardiovascular: Regular Rhythm, Normal S1, Normal S2, No Murmurs, No Rubs, No Gallops Vascular: No Carotid Bruits, Normal Femoral Pulses, Normal Radial Pulses, Normal Dorsalis Pedal Pulse, Normal Posterior Tibial Pulses Abdomen: Bowel Sounds Present, Soft, Non Tender, No HSM, No Organomegaly Extremities: No Cyanosis, No Clubbing, No edema Neurological: No Focal Motor or Sensory Deficit 08/24/18 02:00: D-Dimer Quant (PE/DVT) 0.38 08/24/18 02:00: Triglycerides 142, Cholesterol 128, LDL Cholesterol 63, VLDL Cholesterol 28, HDL Cholesterol 37 L 08/25/18 06:14: Sodium 140, Potassium 3.6, Chloride 101, Carbon Dioxide 29.0, Anion Gap 10, BUN 20 H, Creatinine 1.00, Est GFR (MDRD) Af Amer 95, Est GFR (MDRD) Non-Af 78, BUN/Creatinine Ratio 20.0, Glucose 107 H, Calcium 8.7 Rhythm: EKG: ECHO: Stress Test: Cardiac Cath: PCI: CT Surgery: Holter monitor: EPS: PPM: CXR: Chest CT Scan: Medical Necessity - Tobacco Use Smoking Status: Former smoker Tobacco Use: Cigarettes Assessment/Plan 1. Coronary artery disease: The patient appears to have significant multivessel coronary artery disease and is status post 5 vessel bypass in 1993. According to the patient and his daughter, 4 out of his 5 grafts have occluded, as well as his stents. It is my impression the patient may have only his CLAIRE to his LAD patent at this time. The catheterization film from [facility] from 2012 confirms this. He was told that there could be no further intervention and no repeat bypass recommended a proximally 5 years ago with a catheterization at the [facility] in [facility]. This point I would continue the patient on baby aspirin, hold his Eliquis in case he may require repeat catheterization, and obtain his old catheterization films and report from the [facility] at [facility]. Given the above findings on his cath report I recommend the patient undergo a repeat catheterization to determine if he has had progression of coronary disease to explain his anginal symptoms, as there may be options for percutaneous corrective measures. Patient does not appear to want to pursue that at this time and wishes to discuss it with his family. Would recommend continuing to hold his Eliquis and if he decides to proceed with catheterization we will load him with 300 mg of Plavix today followed by catheterization tomorrow morning. If the patient wishes to pursue medical management would recommend Ranexa 500 mg p.o. twice daily in addition to his antihypertensive therapy in order to treat non-correctable coronary artery disease. 2. Prostate cancer: Would recommend a d-dimer to determine if the patient had a possible pulmonary embolism. If this is abnormal he may require a CT scan of the chest to rule out pulmonary embolism. 3. Atrial fibrillation: The patient is currently normal sinus rhythm but appears to have burst of SVT which may be causing him his symptoms. Continue beta-parveen therapy at current rate. Patient did have a burst of SVT yesterday which were self terminating. 4. Hyperlipidemia: Recommend obtaining a fasting lipid profile. His LDL should be less than 70. Continue Lipitor. 5. Thank you very much for the opportunity to participate in the cardiac care of your patient. Discussed with Dr. Busby. If patient wishes to be discharged, would recommend restarting his Eliquis and having him follow-up with Dr. Tim going forward. Code Visit Inpatient E&M: 27590 Subs Hosp L2
--- NOTE | 2018-08-25 12:53 | CASEMGMT ---
This RN CM room with INFANTE form at this time, explanation done and pt voices understanding. Pt signed INFANTE form a this time. Pt voices no further questions/concerns/needs at this time. Original to chart and copy to pt at this time. Pt also informed this RN CM that he does not want to have the heart cath at this time, he states 'There are too many variables and I just want to get out of here today.' Teresa PCU charge, and Milagro CHARLES aware at this time, voice understanding. Babs LEE CM
--- NOTE | 2018-08-25 14:00 | DCINST_ITS ---
- Discharge Diagnoses Current Active Problems: Current Active and Chronic Problems Chest pain (Acute) Elevated troponin (Acute) Hypertension (Chronic) You will use the following diet at home:: Cardiac Your food should be the consistency of: Regular Your liquids should be the consistency of: Regular/Thin Discharge Activity: Return to Normal Activity Additional Instructions: Restart eliquis tonight Allergies/Adverse Reactions: Allergies water pills Adverse Reaction (Uncoded 08/23/18 19:22) gout Medications to take at Discharge Acetaminophen [Tylenol] 650 mg PO Q6H PRN 08/23/18 Albuterol Inhaler [Ventolin Hfa] 2 puff INHALATION Q4H PRN PRN 08/23/18 Amlodipine [Norvasc] 5 mg PO DAILY 08/23/18 Apixaban [Eliquis] 5 mg PO BID 08/23/18 Aspirin [Aspirin, Baby] 81 mg PO DAILY@0800 08/23/18 Atorvastatin Calcium [Lipitor] 40 mg PO QHS 08/23/18 Bicalutamide [Casodex] 150 mg PO QHS 08/23/18 Cholecalciferol (VIT D3) [Vitamin D3] 1,000 unit PO DAILY 08/23/18 Clonidine HCl [Catapres] 0.1 mg PO BID PRN 08/23/18 Docusate Sodium [Colace] 100 mg PO BID 08/23/18 Levothyroxine [Synthroid] 112 mcg PO DAILY 08/23/18 Melatonin/Pyridoxine HCl (B6) [Melatonin 3 mg Tablet] 1 each PO QHS PRN 08/23/18 Metoprolol Succinate [Toprol Xl] 50 mg PO DAILY 08/23/18 Omeprazole [Prilosec] 40 mg PO DAILY 08/23/18 Sotalol HCl [Betapace AF (Beta Jennifer)] 40 mg PO BID 08/23/18 Trospium Chloride [Sanctura] 20 mg PO BID 08/23/18 traMADol [Ultram] 50 mg PO Q12H PRN 08/23/18 Isosorbide Mononitrate [Imdur] 30 mg PO DAILY #30 tablet 08/25/18 The following prescriptions were given: Isosorbide Mononitrate [Imdur] 30 mg PO DAILY #30 tablet Primary Care Physician: Parvez Louise MD [Primary Care Provider] - Please follow up with your Primary Care Physician in: 1-2 weeks Test Results: Test results from this visit will be discussed in further detail at your follow- up appointment, if applicable. Please Follow Up With: [facility] When: 4 weeks Proposed Discharge Date: 08/25/18
--- NOTE | 2018-08-25 14:00 | PCM.DC.SUM ---
Discharge Date and Diagnosis - Problem List Patient Problems: Active and Suspected Problems Chest pain (Acute) Elevated troponin (Acute) Date of Admission: 08/23/18 Date of Discharge: 08/25/18 - Primary Discharge Diagnosis Active and Suspected Problems Chest pain (Acute) unspecified etiology CAD Elevated troponin (Acute) Afib with RVR HTN Acute diastolic CHF HLD Hypothyroidism - Secondary Discharge Diagnosis Chronic Problems Hypertension (Chronic) Hospital Course and Treatment Imaging Results: Echo: Interpretation Summary The estimated ejection fraction is 65 %. Stage 2 diastolic dysfunction. Moderately dilated right ventricle. The left atrium is moderately enlarged. The right atrium is moderately enlarged. Mild (1+) mitral valve insufficiency. Mild (1+) tricuspid valve insufficiency. Right ventricular systolic pressure estimated to be 49 mmHg. Moderate pulmonary hypertension. The study was technically difficult. There is no comparison study available. Contrast injection was performed. RAD/Chest 1 View (Portable) IMPRESSION: Mild increased markings at the left lung base suggestive of underlying atelectasis and/or scarring. Consults: Tim - cardiology Operations: None Procedures: 2-D Echocardiogram Summary of Care Provided: Hospital course: The patient is a 72 year old M with a PMhx of severe CAD with prior bypass x5 with HTN, HLD, Paroxysmal Afib, who presented to the ER with chest pain. He had an indeterminate troponin and a burst of SVT. He was admitted to the PCU from [facility] and cardiology was consulted. D dimer was negative. He had a negative CXR. Echo showed EF 65%, other findings as above. Cardiology recommended he undergo a repeat heart cath and to continue toprol. Eliquis was held for possible cath. The patient did not want to undergo this. He had no further chest pain. He was placed on imdur 30 qd. He was discharged home in stable condition. He needs to follow up with his PCP in 1-2 weeks and with his [facility] seat cover [facility] in 4 weeks. Etiology of the chest pain remains unclear at this point. This patient was seen by Balbir Kilgore PA-C under the supervision of Doctor Busby. [] Patient Problems: Active and Suspected Problems Chest pain (Acute) Elevated troponin (Acute) - Physical Exam General: Alert, Oriented x3, Cooperative HEENT: Atraumatic, PERRLA, EOMI, Normocephalic Neck: Supple, No JVD, Negative Carotid Bruits Lungs: Clear to auscultation, Normal air movement Cardiovascular: Regular rate, No murmurs Abdomen: Bowel Sounds Present, Soft, Non Tender Extremities: No edema, Capillary Refill Less than 3 Seconds Skin: No rashes, No breakdown Musculoskeletal: No Tenderness to Palpation of Joints or Extremities Neurological: Cranial nerves II-XII grossly intact Psych/Mental Status: Normal Affect, Appropriate, Alert and oriented to time, place, person, mood and affect Vital Signs Temp Pulse Resp BP Pulse Ox 98.6 F 75 16 126/54 H 93 08/25/18 08:31 08/25/18 11:12 08/25/18 08:31 08/25/18 08:31 08/25/18 08:31 Oxygen Delivery Method Room Air Weight: 206 lb 2.115 oz Body Mass Index (BMI) 30.4 Intake and Output for Last 24 Hours 08/23/18 08/24/18 08/25/18 23:59 23:59 23:59 Intake Total 240 / 240 920 / 920 470 / 470 Output Total 375 / 375 Balance -135 / -135 920 / 920 470 / 470 Laboratory Tests Past 24 Hrs 08/25/18 06:14 Sodium 140 Potassium 3.6 Chloride 101 Carbon Dioxide 29.0 Anion Gap 10 BUN 20 H Creatinine 1.00 Estim Creat Clear Calc 67.75 Est GFR (MDRD) Af Amer 95 Est GFR (MDRD) Non-Af 78 BUN/Creatinine Ratio 20.0 Glucose 107 H Calcium 8.7 POC Glucose 08/25/18 08/24/18 09:59 21:40 POC Glucose 107 119 H Discharge Diet: Low fat/ Low Cholesterol, 2000 mg Sodium Diet Discharge Activity: Return to Normal Activity Home Medications: Medications to take at Discharge Acetaminophen [Tylenol] 650 mg PO Q6H PRN 08/23/18 Albuterol Inhaler [Ventolin Hfa] 2 puff INHALATION Q4H PRN PRN 08/23/18 Amlodipine [Norvasc] 5 mg PO DAILY 08/23/18 Apixaban [Eliquis] 5 mg PO BID 08/23/18 Aspirin [Aspirin, Baby] 81 mg PO DAILY@0800 08/23/18 Atorvastatin Calcium [Lipitor] 40 mg PO QHS 08/23/18 Bicalutamide [Casodex] 150 mg PO QHS 08/23/18 Cholecalciferol (VIT D3) [Vitamin D3] 1,000 unit PO DAILY 08/23/18 Clonidine HCl [Catapres] 0.1 mg PO BID PRN 08/23/18 Docusate Sodium [Colace] 100 mg PO BID 08/23/18 Levothyroxine [Synthroid] 112 mcg PO DAILY 08/23/18 Melatonin/Pyridoxine HCl (B6) [Melatonin 3 mg Tablet] 1 each PO QHS PRN 08/23/18 Metoprolol Succinate [Toprol Xl] 50 mg PO DAILY 08/23/18 Omeprazole [Prilosec] 40 mg PO DAILY 08/23/18 Sotalol HCl [Betapace AF (Beta Jennifer)] 40 mg PO BID 08/23/18 Trospium Chloride [Sanctura] 20 mg PO BID 08/23/18 traMADol [Ultram] 50 mg PO Q12H PRN 08/23/18 Isosorbide Mononitrate [Imdur] 30 mg PO DAILY #30 tablet 08/25/18 Following Prescrptions Were Given to Patient: Isosorbide Mononitrate [Imdur] 30 mg PO DAILY #30 tablet Primary Care Physician: Parvez Louise MD [Primary Care Provider] - Please follow up with your Primary Care Physician in: 1-2 weeks Please Follow Up With: [place] [facility] When: 4 weeks Disposition: Home Minutes spent on discharge:: 35 Patient Condition:: Stable Medical Necessity - Tobacco Use Smoking Status: Former smoker Tobacco Use: Cigarettes Meaningful Use Info Meaningful Use Diagnoses (Choose all that apply): None applicable
[2018-08-25] MEDS: Acetaminophen 325 MG Tablet 650 MG PO (14:45)
== END 2018-08-25 13:59 | disposition home or self-care (01) ==
PROVIDERS: Internal Medicine Cardiovascular Disease; Admitting Provider Internal Medicine; Family Provider Family Medicine; PCP Family Medicine; Referring Provider Internal Medicine; Visit Provider Internal Medicine
DX: R07.89 Other chest pain (principal); I11.0 Hypertensive heart disease with heart failure; I50.33 Acute on chronic diastolic (congestive) heart failure; I48.0 Paroxysmal atrial fibrillation; E03.9 Hypothyroidism, unspecified; E78.5 Hyperlipidemia, unspecified; I25.10 Atherosclerotic heart disease of native coronary artery without angina pectoris; I08.1 Rheumatic disorders of both mitral and tricuspid valves; I25.2 Old myocardial infarction; J45.909 Unspecified asthma, uncomplicated; Z79.01 Long term (current) use of anticoagulants; Z79.899 Other long term (current) drug therapy; Z79.82 Long term (current) use of aspirin; Z87.891 Personal history of nicotine dependence; Z85.46 Personal history of malignant neoplasm of prostate; Z95.1 Presence of aortocoronary bypass graft; Z92.3 Personal history of irradiation; Z92.21 Personal history of antineoplastic chemotherapy; K21.9 Gastro-esophageal reflux disease without esophagitis
CPT/HCPCS: 36415; 71045; 80048; 80061; 82962; 84484; 84550; 85025; 85379; 85610; 85730; 93005; 93306; 96374; 96376; 97162; 97165; 97802; 99218; Q9957; A4216; C8929; G0378; G0379; J1940

== ENCOUNTER 2021-02-07 18:01 | Emergency (ER) | payer OTHER, MEDICARE, SELFPAY ==
[2019-04-18 13:26] VITALS: BMI 31.0
[2021-02-07 18:02] VITALS: BP 138/85; PULSE 82; RESP 18; TEMP 36.6; O2SAT 98; BMI 28.5
--- NOTE | 2021-02-07 18:50 | EDS_ITS ---
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 He has had a small amount of blood. No hematemesis. No vomiting. No fever. Has been on no antibiotics. He has had no recent admission. [facility] sent him into be evaluated. Prior similar symptoms: No Recent Illness/Hospitalization: No PFSH PFS Medical History Atherosclerosis of coronary artery bypass graft of [place] heart without angina pectoris Atherosclerotic heart disease of [place] coronary artery without angina pectoris Chronic atrial fibrillation Diabetes mellitus, type II Encounter for monitoring sotalol therapy Former tobacco use Hyperlipidemia Hypertension Obstructive sleep apnea Peripheral vascular disease Right bundle branch block Home Medications acetaminophen 650 mg PO Q6H PRN 08/23/18 [History Last Taken Unknown] albuterol sulfate 2 puff INHALATION Q4H PRN PRN 08/23/18 [History Last Taken Unknown] apixaban 5 mg PO BID 08/23/18 [History Last Taken 08/23/18 08:00] aspirin 81 mg PO DAILY@0800 08/23/18 [History Last Taken 08/23/18] atorvastatin 40 mg PO QHS 08/23/18 [History Last Taken 08/23/18] bicalutamide 150 mg PO QHS 08/23/18 [History Last Taken 08/22/18] cholecalciferol (vitamin D3) 1,000 unit PO DAILY 08/23/18 [History Last Taken 08/23/18] levothyroxine 112 mcg PO DAILY 08/23/18 [History Last Taken 08/23/18] melatonin-pyridoxine HCl (B6) 1 ea PO QHS PRN 08/23/18 [History Last Taken 08/22/18] omeprazole 40 mg PO DAILY 08/23/18 [History Last Taken 08/23/18] sotalol 40 mg PO BID 08/23/18 [History Last Taken 08/22/18] trospium 20 mg PO BID 08/23/18 [History Last Taken 08/23/18 08:00] isosorbide mononitrate 30 mg PO DAILY #30 tab 08/25/18 [Rx Last Taken Unknown] ascorbic acid (vitamin C) 250 mg tablet 250 mg PO .COMPLEX tab 04/17/19 [History Last Taken Unknown] budesonide-formoterol HFA 160 mcg-4.5 mcg/actuation aerosol inhaler 2 puff INHALATION BID 04/17/19 [History Last Taken Unknown] calcium carbonate 650 mg calcium (1,625 mg) tablet 650 mg PO BID 04/17/19 [History Last Taken Unknown] capsaicin 0.025 % topical cream 1 applic TOPICAL TID 04/17/19 [History Last Taken Unknown] cetirizine 10 mg tablet 10 mg PO DAILY tab 04/17/19 [History Last Taken Unknown] ferrous sulfate 325 mg (65 mg iron) tablet 325 mg PO .COMPLEX 04/17/19 [History Last Taken Unknown] fluticasone propionate 50 mcg/actuation nasal spray,suspension 2 spray INTRANASAL DAILY 04/17/19 [History Last Taken Unknown] ipratropium bromide 21 mcg (0.03 %) nasal spray 1 spray INTRANASAL TID ml 04/17/19 [History Last Taken Unknown] nitroglycerin 0.4 mg sublingual tablet 0.4 mg SUBLINGUAL Q5-15M 04/17/19 [History Last Taken Unknown] omega-3 fatty acids 1,000 mg capsule 1,000 mg PO BID cap 04/17/19 [History Last Taken Unknown] phenazopyridine 200 mg tablet 200 mg PO TID 04/17/19 [History Last Taken Unknown] losartan 25 mg tablet 25 mg PO DAILY #30 tab 04/18/19 [Rx Last Taken Unknown] Allergy/AdvReac Type Severity Reaction Status Date / Time water pills AdvReac gout Uncoded 02/07/21 18:02 Family History Mother , age 54 Myocardial infarction CAD (coronary artery disease) Scarlet fever Father , Age 70 CAD (coronary artery disease) Myocardial infarction Sudden cardiac ETOH abuse Tobacco abuse Surgical History History of carotid endarterectomy History of cholecystectomy History of left heart catheterization (05/11/13) Hx of CABG 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 Social History Smoking Status: Former smoker ROS ROS ED Review of Systems ROS Unobtainable: Denies due to encephalopathy Constitutional Constitutional ED: Denies fever(s) ENT ENT ED: Denies rhinorrhea Cardiovascular Cardiovascular: Denies chest pain Respiratory/Chest Respiratory/Chest: Denies dyspnea Gastrointestinal Gastrointestinal: Reports diarrhea; Denies abdominal pain, nausea or vomiting Genitourinary Genitourinary ED: Denies dysuria or hematuria Musculoskeletal Musculoskeletal: Denies myalgias Integumentary Denies rash Neurologic Neurologic: Denies weakness Psychiatric Psychiatric: Denies depression Endocrine Endocrinology: Denies polyuria Hematologic/Lymphatic Hematologic/Lymphatic: Denies easy bruising Allergic/Immunologic Allergic/Immunologic ED: Denies urticaria EXAM Physical Exam Const Vital Signs: 02/07/21 18:02 02/07/21 20:31 Temperature 97.9 F Temperature Source Temporal Pulse Rate 82 Respiratory Rate 18 16 Blood Pressure 138/85 H Blood Pressure Mean 102 Pulse Ox 98 Oxygen Delivery Method Room Air Positive well nourished and well developed General Appearance ED: well developed HEENT normocephalic and atraumatic Eyes PERRL and EOMs intact bilaterally Neck no lymphadenopathy and supple Resp normal respiratory effort Cardio regular rate, regular rhythm and no murmurs GI non-tender, non-distended and no masses GI Narrative: Rectal nontender. No masses. No gross blood. No melena. Brown loose stool. Auscultation: normoactive bowel sounds Palpation: soft Back/Spine no CVA tenderness Extremity full ROM Neuro Sensorium / Orientation: alert, oriented to person, oriented to place and oriented to time Psych mental status grossly normal Skin Rashes: no rashes MDM MDM MDM Narrative Medical decision making narrative: 75-year-old male diarrhea for a week after taking extra stool softener. No recent travel. No recent antibiotic. No recent hospitalization. Never had C. difficile before. Patient was treated with IV fluids. Clinically he does not look dehydrated however. Screening labs to be obtained along with a C. difficile. Lab Data Attestation: I reviewed the patient's lab results. Labs: Laboratory Results - last 24 hr 02/07/21 02/07/21 18:40 18:40 WBC 9.0 RBC 4.39 L Hgb 14.4 Hct 42.6 MCV 97.0 H MCH 32.8 H MCHC 33.8 RDW Std Deviation 45.6 H RDW Coeff of John 12.6 Plt Count 200 MPV 10.5 Immature Gran % (Auto) 0.300 Neut % (Auto) 74.6 H Lymph % (Auto) 12.3 L [place] % (Auto) 9.9 Eos % (Auto) 2.6 Baso % (Auto) 0.3 Absolute Neuts (auto) 6.7 Absolute Lymphs (auto) 1.10 Nucleated RBC % 0 Sodium 137 Potassium 3.8 Chloride 103 Carbon Dioxide 28.0 Anion Gap 6 BUN 11 Creatinine 0.90 Estim Creat Clear Calc 69.67 Est GFR (MDRD) Af Amer 106 Est GFR (MDRD) Non-Af 88 BUN/Creatinine Ratio 12.2 Glucose 104 Calcium 9.0 Radiography Diagnostic Testing: CBC and chemistries are unremarkable. C. difficile evaluation still is still pending. Repeat exam the patient is doing well at 9:20 PM. Is received IV fluids. He will be discharged home with outpatient follow-up. Imodium as needed for the diarrhea. Follow-up with his primary care physician. Discharge Plan Triage Chief Complaint: Diarrhea ED Provider: Mat Zhu Dx/Rx/DC Orders Clinical Impression: Diarrhea Instructions: ED Diarrhea, Unknown Cause Prescriptions: No Action ascorbic acid (vitamin C) 250 mg tablet 250 mg PO .COMPLEX RF: 0 budesonide-formoterol 160-4.5 mcg/actuation HFA aerosol inhaler 2 puff INHALATION BID RF: 0 calcium carbonate 650 mg calcium (1,625 mg) tablet 650 mg PO BID RF: 0 capsaicin 0.025 % cream 1 applic TOPICAL TID RF: 0 cetirizine 10 mg tablet 10 mg PO DAILY RF: 0 ferrous sulfate 325 mg (65 mg iron) tablet 325 mg PO .COMPLEX RF: 0 omega-3 fatty acids [Fish Oil Concentrate] 1,000 mg capsule 1,000 mg PO BID RF: 0 fluticasone propionate 50 mcg/actuation spray,suspension 2 spray INTRANASAL DAILY RF: 0 ipratropium bromide 0.03 % spray,non-aerosol 1 spray INTRANASAL TID RF: 0 nitroglycerin 0.4 mg tablet, sublingual 0.4 mg SUBLINGUAL Q5-15M RF: 0 phenazopyridine 200 mg tablet 200 mg PO TID RF: 0 losartan 25 mg tablet 25 mg PO DAILY Qty: 30 RF: 11 atorvastatin 40 MG tablet 40 mg PO QHS RF: 0 bicalutamide 50 MG tablet 150 mg PO QHS RF: 0 sotalol 80 MG tablet 40 mg PO BID RF: 0 omeprazole 20 MG capsule 40 mg PO DAILY RF: 0 aspirin 81 MG tablet,chewable 81 mg PO DAILY@0800 RF: 0 albuterol sulfate 1 INHALER inhaler 2 puff inhalation Q4H PRN PRN (Reason: Sob &/Or Wheezing) RF: 0 levothyroxine 112 MCG tablet 112 mcg PO DAILY RF: 0 trospium 20 MG tablet 20 mg PO BID RF: 0 cholecalciferol (vitamin D3) 1,000 UNIT tablet 1,000 unit PO DAILY RF: 0 apixaban 5 MG tablet 5 mg PO BID RF: 0 acetaminophen 325 MG tablet 650 mg PO Q6H PRN (Reason: Pain) RF: 0 melatonin-pyridoxine HCl (B6) 1 EACH tablet 1 ea PO QHS PRN (Reason: Sleep) RF: 0 isosorbide mononitrate 30 MG tablet 30 mg PO DAILY Qty: 30 RF: 0 [facility] Care Provider: [facility] Referrals: [facility] [Primary Care Provider] - Activity Restrictions/Additional Instructions: Plenty of fluids and rest to prevent from being dehydrated. Imodium as needed for diarrhea. Follow-up with your primary care physician to make sure this is improving. Return to the ER if you are feeling a lot worse. Your labs today looked good. Disposition Disposition: Home, self care
[2021-02-07] MEDS: 0.9% Normal Saline 1,000 ML 999 ML IV (18:54)
[2021-02-07 19:04] LABS: Absolute Neutrophil Count 6.7 X10^3/uL (2.0-7.7); Basophil# 0.03 X10^3/uL; Basophil% 0.3 % (0-1); Eosinophil# 0.23 X10^3/uL; Eosinophils% 2.6 % (0-5); Hematocrit 42.6 % (40-54); Hemoglobin 14.4 g/dL (13.0-16.5); Lymphocyte % 12.3 % (19-41); Mean Corp Hgb Conc 33.8 g/dL (32-36); Mean Corpuscular Hgb 32.8 pg (27.0-32.0); Mean Platelet Vol. 10.5 fl (6.2-12.0); Monocyte# 0.89 X10^3/uL; Monocyte% 9.9 % (0-10); NRBC Flagged by Analyzer 0 % (0-5); Neutrophil # 6.67 X10^3/uL (2.7-7.7); Neutrophil % 74.6 % (47-70); Platelet Count 200 K/mm3 (150-450); RBC Distribution Width CV 12.6 % (11.6-14.6); RBC Distribution Width SD 45.6 fl (35.1-43.9); Red Blood Count 4.39 M/mm3 (4.6-6.2)
[2021-02-07 19:42] LABS: Anion Gap 6 (5-15); BUN 11 mg/dL (7-18); BUN/Creat Ratio 12.2 RATIO (10-20); Chloride 103 mmol/L (98-107); EST Glomerular Filtration Rate 88 mL/min (>60); Est Glom Filt Rate - Afr Amer 106 mL/min (>60); Estimated Creatinine Clearance 69.67 ml/min; Glucose 104 mg/dL (74-106); Potassium 3.8 mmol/L (3.5-5.1); Sodium Level 137 mmol/L (136-145)
[2021-02-07 20:31] VITALS: RESP 16
== END 2021-02-07 21:58 | disposition home or self-care (01) ==
PROVIDERS: Emergency Provider Emergency Medicine
DX: R19.7 Diarrhea, unspecified (principal); I25.810 Atherosclerosis of coronary artery bypass graft(s) without angina pectoris; E78.5 Hyperlipidemia, unspecified; I10 Essential (primary) hypertension; Z87.891 Personal history of nicotine dependence; Z79.82 Long term (current) use of aspirin
CPT/HCPCS: 80048; 85025; 87493; 96360; 96361; 99283; J7030; A4216

== ENCOUNTER 2023-03-30 12:10 | Emergency (ER) | payer OTHER, SELFPAY ==
[2023-03-30 12:12] VITALS: BP 149/93; PULSE 95; RESP 14; TEMP 36; O2SAT 97; BMI 31.1
--- NOTE | 2023-03-30 12:34 | CT_ITS ---
STUDY: CTA OF THE ABDOMINAL AORTA AND BILATERAL LOWER EXTREMITIES REASON FOR EXAM: Male, 77 years old. right leg weakness s Right leg weakness, h/o heart cath, bere. diabetic, a-fib, pvd, cabg, stenosis of artery of both lower legs with stents. RADIATION DOSAGE (If Supplied By Facility): CTDIvol = ( 10.07 ) mGy, DLP = ( 1324.01 ) mGycm TECHNIQUE: Axial CT angiography multi-detector data acquisition was obtained from the to the following intravenous administration of IV 100mL [id number]-[id number]. Axial images and MIP images were reconstructed from the axial data set. Post-processing of the angiographic images was performed, with multiplanar reformation and 3D reconstruction. Individualized dose optimization techniques were used for this CT. TECHNICAL QUALITY: Good COMPARISON: None. Descriptors of Narrowing: None (0%) Mild (< 50%) Moderate (50-70%) Severe (70-90%) Subtotal/Total Occlusion (90-100%) Non-Evaluable (technically non-diagnostic FINDINGS: Abdominal aorta: Distal abdominal aortic aneurysm measures 3.66 cm just above the aortoiliac bifurcation. Significant tortuosity of the abdominal aorta. The infrarenal aspect of the abdominal aorta is normal in diameter at 2.42 cm. Mild calcified and noncalcified plaque is scattered throughout the abdominal aorta and several of his branches. Celiac and superior mesenteric arteries: Mild atherosclerotic stenosis and plaque formation at the origin of the celiac artery. Moderate atherosclerotic plaque and stenosis of the proximal aspect of the main hepatic artery and splenic artery. Mild atherosclerotic plaque without luminal stenosis at the origin of the superior mesenteric artery. Inferior mesenteric artery: No demonstrated narrowing. Right renal artery(arteries): No demonstrated narrowing. Left renal artery(arteries): Mild atherosclerotic plaque and stenosis at the origin. Normal distally Right common iliac artery: There is mild diffuse narrowing. Right external iliac artery: There is severe diffuse narrowing. Right internal iliac artery: There is severe diffuse narrowing. Left common iliac artery: There is mild diffuse narrowing. Left external iliac artery: There is mild diffuse narrowing. Left internal iliac artery: There is moderate diffuse narrowing. RIGHT LOWER EXTREMITY Right common femoral artery: Mild to moderate narrowing at the distal aspect of the superficial femoral artery due to plaque formation. A vascular stent is present at the junction of the right common femoral artery and superficial femoral artery. Right profundus femoris: No demonstrated narrowing. Right superficial femoral: Proximal and distal one third vascular stents with complete occlusion within the stent and in the middle one third region of the right superficial femoral artery. Right popliteal artery: A vascular stent is present which is completely occluded with thrombus. Right tibioperoneal trunk: There is severe diffuse narrowing. Collateral blood vessels/reconstitution at the origin of the tibioperoneal trunk perfuse the right calf Right anterior tibial artery: There is moderate diffuse narrowing, with visualization of the vessel to the distal calf. Right posterior tibial artery: Completely occluded Right peroneal artery: There is moderate diffuse narrowing, with visualization of the vessel to the distal calf. Right knee prosthesis is present. LEFT LOWER EXTREMITY Left common femoral artery: A vascular stent is present. Mild to moderate IntraStent stenosis.. Left profundus femoris: No demonstrated narrowing. Left superficial femoral: Severe stenosis in the proximal one third aspect of the left superficial femoral artery. A vascular stent is present in the distal one third aspect of the artery. Complete occlusion of the middle to distal one third aspect of the left superficial femoral artery. Collateral vessels/reconstitution at the junction of the superficial femoral artery and popliteal artery. Left popliteal artery: There is severe diffuse narrowing. Left tibioperoneal trunk: There is severe diffuse narrowing. Left anterior tibial artery: There is moderate diffuse narrowing, with visualization of the vessel to the distal calf. Left posterior tibial artery: Nearly completely occluded with multiple areas of severe stenoses and minimal blood flow perfusion through the vessel. Left peroneal artery: There is severe diffuse narrowing, with visualization of the vessel to the proximal calf. NONVASCULAR FINDINGS: The visualized lung bases are unremarkable. Normal liver. No intrahepatic biliary duct dilatation or liver mass. There is non-visualization of the gallbladder, which may be secondary to either contraction or a prior cholecystectomy. Normal spleen. Normal pancreas. Normal bilateral adrenal glands. Normal right kidney. Normal left kidney. No hydronephrosis or renal masses. No large stones. There is a large hiatal hernia composed mostly of the fundus of the stomach. Normal small intestine. Normal colon. No bowel dilatation or obstruction. No free air or free fluid. The appendix is visualized and appears normal. There is diffuse atherosclerotic calcification of the abdominal aorta. Normal inferior vena cava. Normal retroperitoneum. Normal urinary bladder. There is a small umbilical hernia containing fat. There are diffuse degenerative changes of the visualized lumbar spine. 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 Right superficial femoral: Proximal and distal one third vascular stents with complete occlusion within the stent and in the middle one third region of the right superficial femoral artery. 2. Right popliteal artery: A vascular stent is present which is completely occluded with thrombus. 3. Complete occlusion of the right posterior tibial artery. Left lower extremity: Severe stenosis to complete occlusion of the left superficial femoral artery 1. Left superficial femoral: Severe stenosis in the proximal one third aspect of the left superficial femoral artery. A vascular stent is present in the distal one third aspect of the artery. Complete occlusion of the middle to distal one third aspect of the left superficial femoral artery. Collateral vessels/reconstitution at the junction of the superficial femoral artery and popliteal artery. 2. Severe atherosclerotic stenosis of the vessels of the bilateral lower extremity/calves. Electronically Signed: Rohit Chavez MD at 15:43 EDT ,
--- NOTE | 2023-03-30 12:34 | VDLE_ITS ---
Reason For Study: Rt Leg Pain RIGHT LEFT GSV is normal. CFV is compressible, spontaneous, phasic, CFV is compressible, spontaneous, phasic, competent, and demonstrates normal competent and demonstrates normal augmentation. augmentation. FV is compressible, spontaneous, phasic, competent and demonstrates normal augmentation. POP V is compressible, spontaneous, phasic, competent and demonstrates normal augmentation. T/P Trunk is compressible. PTV is compressible. RT PerV is compressible. Rt GSV harvested from knee to ankle for prior CABG. Incidental Finding - drumbeat flow seen in Rt Distal RECRUITING ASSISTANT. Rt RECRUITING ASSISTANT velocity - 15.8/0.0 cm/sec No flow seen in Rt Proximal SFA with color or pulsed wave doppler. Extensive heterogenous calcified plaque noted. Procedure This is a venous duplex using B-mode, color flow and spectral Doppler. Exam performed portable in ED. The exam was diagnostic. The study was technically difficult due to calcified shadowing. A preliminary report was called and/or faxed to Dr. Jacques. VL/Venous Duplex US, Unilateral Interpretation Summary Deep veins of the right lower extremity are patent and compressible segmentally . There is no evidence of right lower extremity deep vein thrombosis. The right great sapheno us vein appears patent and compressible segmentally. Inidental finding of right SFA atherosclerosis, occlusion. Ordering Physician: Mikael Jacques Referring Physician: SARAVANAN Performed By: Jeremiah Mann, RVDru
--- NOTE | 2023-03-30 12:37 | ED.VIS.LOWEX ---
HPI History of Present Illness Chief Complaint: Lower Extremity Injury Narrative Narrative: 77-year-old male presenting with right leg weakness. He says at times it starts to ache. It is worse at night when he is laying down to sleep. When he walks if he walks a long distance it will start to ache as well. He states he has history of vascular stents in the past. He tried to get a hold of his vascular doctor from the [place] but was unable to. Patient is on Eliquis for A-fib history. Since [facility] to call [facility] told him to come to the ER to get checked for a blood clot. He is not describing a lot of pain. He does not have any swelling. He states he has had to use a walker. No direct trauma. 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 Chronic atrial fibrillation Diabetes mellitus, type II Encounter for monitoring sotalol therapy Former tobacco use Hyperlipidemia Hypertension Obstructive sleep apnea Peripheral vascular disease Right bundle branch block Home Medications acetaminophen 325 mg tablet 650 mg PO Q6H PRN Pain 08/23/18 [History Last Taken Unknown] albuterol sulfate 90 mcg/actuation aerosol inhaler 2 puff inhalation Q4H PRN PRN Sob &/Or Wheezing 08/23/18 [History Last Taken Unknown] apixaban 5 mg tablet 5 mg PO BID blood thinner 08/23/18 [History Last Taken 08/23/18 08:00] aspirin 81 mg chewable tablet 81 mg PO DAILY@0800 health maintenance 08/23/18 [History Last Taken 08/23/18] atorvastatin 40 mg tablet 40 mg PO QHS cholesterol 08/23/18 [History Last Taken 08/23/18] bicalutamide 50 mg tablet 150 mg PO QHS hormone 08/23/18 [History Last Taken 08/22/18] cholecalciferol (vitamin D3) 25 mcg (1,000 unit) tablet 1,000 unit PO DAILY supplement 08/23/18 [History Last Taken 08/23/18] levothyroxine 112 mcg tablet 112 mcg PO DAILY thyroid 08/23/18 [History Last Taken 08/23/18] melatonin-pyridoxine HCl (vitamin B6) 3 mg-10 mg tablet 1 ea PO QHS PRN Sleep 08/23/18 [History Last Taken 08/22/18] omeprazole 20 mg capsule,delayed release 40 mg PO DAILY gerd 08/23/18 [History Last Taken 08/23/18] sotalol 80 mg tablet 40 mg PO BID heart 08/23/18 [History Last Taken 08/22/18] trospium 20 mg tablet 20 mg PO BID overactive bladder 08/23/18 [History Last Taken 08/23/18 08:00] isosorbide mononitrate 30 mg tablet,extended release 24 hr 30 mg PO DAILY #30 tabs 08/25/18 [Rx Last Taken Unknown] ascorbic acid (vitamin C) 250 mg tablet 250 mg PO .COMPLEX 04/17/19 [History Last Taken Unknown] budesonide-formoterol HFA 160 mcg-4.5 mcg/actuation aerosol inhaler 2 puff inhalation BID 04/17/19 [History Last Taken Unknown] calcium carbonate 650 mg calcium (1,625 mg) tablet 650 mg PO BID 04/17/19 [History Last Taken Unknown] capsaicin 0.025 % topical cream 1 applic topical TID 04/17/19 [History Last Taken Unknown] cetirizine 10 mg tablet 10 mg PO DAILY 04/17/19 [History Last Taken Unknown] ferrous sulfate 325 mg (65 mg iron) tablet 325 mg PO .COMPLEX 04/17/19 [History Last Taken Unknown] fluticasone propionate 50 mcg/actuation nasal spray,suspension 2 spray intranasal DAILY 04/17/19 [History Last Taken Unknown] ipratropium bromide 21 mcg (0.03 %) nasal spray 1 spray intranasal TID 04/17/19 [History Last Taken Unknown] nitroglycerin 0.4 mg sublingual tablet 0.4 mg sublingual Q5-15M 04/17/19 [History Last Taken Unknown] omega-3 fatty acids 1,000 mg capsule (Fish Oil Concentrate) 1,000 mg PO BID 04/17/19 [History Last Taken Unknown] phenazopyridine 200 mg tablet 200 mg PO TID 04/17/19 [History Last Taken Unknown] losartan 25 mg tablet 25 mg PO DAILY #30 tabs 04/18/19 [Rx Last Taken Unknown] Allergy/AdvReac Type Severity Reaction Status Date / Time water pills AdvReac gout Uncoded 03/30/23 12:14 Family History Mother , age 54 Myocardial infarction CAD (coronary artery disease) Scarlet fever Father , Age 70 CAD (coronary artery disease) Myocardial infarction Sudden cardiac ETOH abuse Tobacco abuse Surgical History History of carotid endarterectomy History of cholecystectomy History of left heart catheterization (05/11/13) Hx of CABG 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 Social History Smoking Status: Former smoker ROS ROS ED Constitutional Constitutional ED: Denies chills or fever(s) Eyes Eyes: Denies change in vision or diplopia ENT ENT ED: Denies ear pain, rhinorrhea or sore throat Cardiovascular Cardiovascular: Denies chest pain or palpitations Respiratory/Chest Respiratory/Chest: Denies cough or dyspnea Gastrointestinal Gastrointestinal: Denies abdominal pain, constipation, nausea or vomiting Genitourinary Genitourinary ED: Denies dysuria or hematuria Musculoskeletal Musculoskeletal: Reports other Details: Right leg pain Integumentary Denies abscess or Abrasions Neurologic Neurologic: Denies headache(s) Psychiatric Psychiatric: Denies anxiety or depression Endocrine Endocrinology: Denies polydipsia or polyphagia EXAM Physical Exam Const Vital Signs: 03/30/23 12:12 Temperature 96.8 F L Temperature Source Temporal Pulse Rate 95 Respiratory Rate 14 Blood Pressure 149/93 H Blood Pressure Mean 111 Pulse Ox 97 Oxygen Delivery Method Room Air Positive well nourished General Appearance ED: NAD HEENT Reports moist mucous membranes normocephalic Chest Wall inspection of chest normal Resp normal respiratory effort and no retractions Cardio regular rate and regular rhythm GI non-tender Extremity normal to inspection and full ROM Extremity Narrative: No tenderness. Compartments soft. No cords palpated. General Extremety ED: Negative for edema General Extremity: Negative for edema Neuro oriented x3 and CN's II-XII intact bilaterally Sensorium / Orientation: alert Psych mental status grossly normal Skin no wounds MDM MDM MDM Narrative Medical decision making narrative: Patient presenting with right leg weakness and pain. The pain is mild. He has a history of peripheral vascular disease and has had stents in the past. He has been unable to get a hold of his vascular surgeon. [facility] Patient on Eliquis for history of A-fib. We will obtain a CBC and BMP to assess white blood cell count, hemoglobin, platelets, renal function, electrolytes. We will obtain a CTA of the abdomen with runoffs to assess for peripheral ischemia. Patient does still want a DVT study of the right leg because [facility] doc requested this. This will be performed. I did watch him ambulate and he is ambulatory and steady with a cane. He is having trouble walking with the right leg though. This has been ongoing for about 3 weeks now. CBC shows a normal white blood cell count of 7.8. Hemoglobin stable 13.6. Platelets normal. Renal function electrolytes within normal limits. DVT study was negative. CTA with runoffs is positive for occlusions in the right superficial femoral, right popliteal, posterior tibial which involves the stents as well. The left lower extremity shows severe superficial femoral stenosis and complete occlusion of the middle to distal one third of the stent of the left superficial femoral with collaterals. I discussed this with Dr. Matthews who recommended that the patient be discharged to follow[facility] with [facility]. He states he is happy to see the patient in follow-up if he wants to see him. I will give Dr. Matthews's information. Impression: 1. Peripheral vascular disease Lab Data Attestation: I reviewed the patient's lab results. Labs: Laboratory Results - last 24 hr 03/30/23 03/30/23 13:15 13:15 WBC 7.8 RBC 4.25 L Hgb 13.6 Hct 40.7 MCV 95.8 H MCH 32.0 MCHC 33.4 RDW Std Deviation 45.7 H RDW Coeff of John 12.9 Plt Count 200 MPV 10.6 Immature Gran % (Auto) 0.600 Neut % (Auto) 70.0 Lymph % (Auto) 14.6 L [place] % (Auto) 9.8 Eos % (Auto) 4.4 Baso % (Auto) 0.6 Absolute Neuts (auto) 5.4 Absolute Lymphs (auto) 1.13 Nucleated RBC % 0 Sodium 136 Potassium 4.3 Chloride 103 Carbon Dioxide 29.0 Anion Gap 4 L BUN 18 Creatinine 0.86 Estim Creat Clear Calc 73.07 Est GFR (MDRD) Af Amer 112 Est GFR (MDRD) Non-Af 92 BUN/Creatinine Ratio 21.0 H Glucose 126 H Calcium 9.2 Radiography Diagnostic Testing: Clinical Impression(s) from Imaging Studies Abdomen/Pelvis CTA 03/30/23 12:34 IMPRESSION: Distal abdominal aorta: 3.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 Right superficial femoral: Proximal and distal one third vascular stents with complete occlusion within the stent and in the middle one third region of the right superficial femoral artery. 2. Right popliteal artery: A vascular stent is present which is completely occluded with thrombus. 3. Complete occlusion of the right posterior tibial artery. Left lower extremity: Severe stenosis to complete occlusion of the left superficial femoral artery 1. Left superficial femoral: Severe stenosis in the proximal one third aspect of the left superficial femoral artery. A vascular stent is present in the distal one third aspect of the artery. Complete occlusion of the middle to distal one third aspect of the left superficial femoral artery. Collateral vessels/reconstitution at the junction of the superficial femoral artery and popliteal artery. 2. Severe atherosclerotic stenosis of the vessels of the bilateral lower extremity/calves. Electronically Signed: Rohit Chavez MD at 15:43 EDT Reading Location ID and State: [address] [place] [address] , Service support , Venous Doppler Study 03/30/23 12:34 Interpretation Summary Deep veins of the right lower extremity are patent and compressible segmentally. There is no evidence of right lower extremity deep vein thrombosis. The right great saphenous vein appears patent and compressible segmentally. Inidental finding of right SFA atherosclerosis, occlusion. Ordering Physician: Mikael Jacques [facility] Performed By: Jeremiah Mann, RVT Discharge Plan Triage Chief Complaint: Lower Extremity Injury ED Provider: Mikael Jacques Dx/Rx/DC Orders Instructions: Arterial Occlusion Acute, ED Peripheral Artery Disease (PAD) Prescriptions: No Action ascorbic acid (vitamin C) 250 mg tablet 250 mg PO .COMPLEX Rx Instructions: 250 mg PO TID on Mon, Weds and Fri only; budesonide-formoterol 160-4.5 mcg/actuation HFA aerosol inhaler 2 puff INHALATION BID calcium carbonate 650 mg calcium (1,625 mg) tablet 650 mg PO BID capsaicin 0.025 % cream 1 applic TOPICAL TID cetirizine 10 mg tablet 10 mg PO DAILY ferrous sulfate 325 mg (65 mg iron) tablet 325 mg PO .COMPLEX Rx Instructions: 325 mg PO 3 tablets by mouth every Mon, Weds, and Fri after a meal; omega-3 fatty acids [Fish Oil Concentrate] 1,000 mg capsule 1,000 mg PO BID fluticasone propionate 50 mcg/actuation spray,suspension 2 spray INTRANASAL DAILY ipratropium bromide 0.03 % spray,non-aerosol 1 spray INTRANASAL TID nitroglycerin 0.4 mg tablet, sublingual 0.4 mg SUBLINGUAL Q5-15M phenazopyridine 200 mg tablet 200 mg PO TID losartan 25 mg tablet 25 mg PO DAILY Qty: 30 11RF atorvastatin 40 MG tablet 40 mg PO QHS bicalutamide 50 MG tablet 150 mg PO QHS sotalol 80 MG tablet 40 mg PO BID omeprazole 20 MG capsule 40 mg PO DAILY aspirin 81 MG tablet,chewable 81 mg PO DAILY@0800 albuterol sulfate 1 INHALER inhaler 2 puff inhalation Q4H PRN PRN (Reason: Sob &/Or Wheezing) levothyroxine 112 MCG tablet 112 mcg PO DAILY trospium 20 MG tablet 20 mg PO BID cholecalciferol (vitamin D3) 1,000 UNIT tablet 1,000 unit PO DAILY apixaban 5 MG tablet 5 mg PO BID acetaminophen 325 MG tablet 650 mg PO Q6H PRN (Reason: Pain) melatonin-pyridoxine HCl (B6) 1 EACH tablet 1 ea PO QHS PRN (Reason: Sleep) isosorbide mononitrate 30 MG tablet 30 mg PO DAILY Qty: 30 0RF [facility] Care [facility] [facility] [[facility] Provider] - Disposition Disposition: Home, Self Care
[2023-03-30 13:19] LABS: Absolute Lymphocyte Count 1.13 X10^3/uL (0.83-4.51); Absolute Neutrophil Count 5.4 X10^3/uL (2.0-7.7); Basophil# 0.05 X10^3/uL; Basophil% 0.6 % (0-1); Eosinophil# 0.34 X10^3/uL; Eosinophils% 4.4 % (0-5); Hematocrit 40.7 % (40-54); Hemoglobin 13.6 g/dL (13.0-16.5); Lymphocyte # 1.13 X10^3/ul (0.83-4.51); Lymphocyte % 14.6 % (19-41); Mean Corp Hgb Conc 33.4 g/dL (32-36); Mean Corpuscular Volume 95.8 fL (80-94); Mean Platelet Vol. 10.6 fl (6.2-12.0); Monocyte# 0.76 X10^3/uL; Monocyte% 9.8 % (0-10); NRBC Flagged by Analyzer 0 % (0-5); Neutrophil # 5.42 X10^3/uL (2.7-7.7); Platelet Count 200 K/mm3 (150-450); RBC Distribution Width CV 12.9 % (11.6-14.6); RBC Distribution Width SD 45.7 fl (35.1-43.9); Red Blood Count 4.25 M/mm3 (4.6-6.2); White Blood Count 7.8 K/mm3 (4.4-11.0)
[2023-03-30 13:34] LABS: Anion Gap 4 (5-15); BUN 18 mg/dL (7-18); Calcium,Total 9.2 mg/dL (8.5-10.1); Chloride 103 mmol/L (98-107); Creatinine, Serum 0.86 mg/dL (0.70-1.30); EST Glomerular Filtration Rate 92 mL/min (>60); Est Glom Filt Rate - Afr Amer 112 mL/min (>60); Estimated Creatinine Clearance 73.07 ml/min; Glucose 126 mg/dL (74-106); Potassium 4.3 mmol/L (3.5-5.1); Sodium Level 136 mmol/L (136-145)
[2023-03-30 16:29] VITALS: BP 149/89; PULSE 87; RESP 14; O2SAT 95
== END 2023-03-30 16:32 | disposition home or self-care (01) ==
PROVIDERS: Emergency Provider Student in an Organized Health Care Education/Training Program; Referring Provider Student in an Organized Health Care Education/Training Program; Visit Provider Student in an Organized Health Care Education/Training Program
DX: I73.9 Peripheral vascular disease, unspecified (principal); R53.1 Weakness; M79.604 Pain in right leg; G47.33 Obstructive sleep apnea (adult) (pediatric); I25.10 Atherosclerotic heart disease of native coronary artery without angina pectoris; I10 Essential (primary) hypertension; Z95.1 Presence of aortocoronary bypass graft; Z87.891 Personal history of nicotine dependence; Z79.01 Long term (current) use of anticoagulants
CPT/HCPCS: 75635; 80048; 85025; 93971; 99283; Q9967; A4216

== ENCOUNTER 2023-08-16 11:30 | Emergency (ER) | payer OTHER, SELFPAY ==
[2023-08-16 11:30] VITALS: BP 119/80; PULSE 100; RESP 16; TEMP 36.3; O2SAT 100; BMI 28.6
--- NOTE | 2023-08-16 11:44 | CT_ITS ---
STUDY: CT BRAIN WITHOUT CONTRAST REASON FOR EXAM: Male, 77 years old. Swelling overlying the right orbital region following a fall. RADIATION DOSAGE (If Supplied By Facility): CTDIvol = ( 44.99 ) mGy, DLP = ( 880.47 ) mGycm TECHNIQUE: Transaxial CT imaging of the brain was performed without administration of intravenous contrast material. Individualized dose optimization techniques were used for this CT. COMPARISON: No relevant priors. FINDINGS: Mild degree of soft tissue swelling overlying the right orbital region. Normal calvarium. Normal size ventricles and extra-axial spaces for the patient''s age. Normal white matter tracts of the cerebral hemispheres. Normal basal ganglia and thalami. Small old lacunar infarct in the left basal ganglion. Normal cerebellum. There is no intracranial hemorrhage. There are no findings of an acute ischemic infarction. Atherosclerotic plaque formation of the vertebral arteries and cavernous portions of the internal carotid arteries bilaterally. Minimal mucosal thickening along the medial wall of the left maxillary sinus. CT/Brain/Head without Contrast IMPRESSION: Chronic involutional changes of the brain. Mild degree of soft tissue swelling overlying the right orbital region. Electronically Signed: Eugene Mondragon MD at 12:29 EST ,
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
== END 2023-08-16 13:37 | disposition home or self-care (01) ==
PROVIDERS: Emergency Provider Student in an Organized Health Care Education/Training Program; Visit Provider Student in an Organized Health Care Education/Training Program
DX: S09.90XA Unspecified injury of head, initial encounter (principal); E11.9 Type 2 diabetes mellitus without complications; S05.11XA Contusion of eyeball and orbital tissues, right eye, initial encounter; I25.10 Atherosclerotic heart disease of native coronary artery without angina pectoris; E78.5 Hyperlipidemia, unspecified; I10 Essential (primary) hypertension; G47.33 Obstructive sleep apnea (adult) (pediatric); Z79.82 Long term (current) use of aspirin; Z79.01 Long term (current) use of anticoagulants; Z79.899 Other long term (current) drug therapy; W19.XXXA Unspecified fall, initial encounter; Z87.891 Personal history of nicotine dependence; Z95.1 Presence of aortocoronary bypass graft
CPT/HCPCS: 70450; 99282

== ENCOUNTER 2024-01-08 11:10 | Emergency (ER) | payer OTHER, SELFPAY ==
[2024-01-08] VITALS (7 sets, daily range): BP systolic 119–155; BP diastolic 53–99; PULSE 62–103; RESP 12–18; TEMP 36.2–36.5; O2SAT 97–100; BMI 28.6
--- NOTE | 2024-01-08 11:20 | ED.RN ---
pt ate lunch yesterday and states I got a piece of something stuck pt states he vomited up his food at that time and has not been able to swallow anything since then. pt does have a history of the same. respirations even and unlabored. pt in no apparent distress. c/o of dry mouth
--- NOTE | 2024-01-08 11:51 | EX.ED.DYSGE1 ---
HPI History of Present Illness Chief Complaint: Foreign Body Informant: patient Narrative Narrative: Patient having just under 24 hours worth of what he thinks may be an esophageal foreign body/obstruction. He states he was eating chicken when it occurred. He states he is asymptomatic until he tries to eat or drink something, then he gets pain at his epigastrium, right before dumps into my stomach and followed by profuse vomiting everything that he tries to eat or drink. He has not been able to keep anything down since then. No hematemesis. No melena. He states that he has had this in the past, he had to have an EGD twice to clear the blockage and the last time was about [address] Pate. 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 Chronic atrial fibrillation Diabetes mellitus, type II Encounter for monitoring sotalol therapy Former tobacco use Hyperlipidemia Hypertension Obstructive sleep apnea Peripheral vascular disease Right bundle branch block Home Medications acetaminophen 325 mg tablet 650 mg PO Q6H PRN Pain 08/23/18 [History Last Taken Unknown] albuterol sulfate 90 mcg/actuation aerosol inhaler 2 puff inhalation Q4H PRN PRN Sob &/Or Wheezing 08/23/18 [History Last Taken Unknown] apixaban 5 mg tablet 5 mg PO BID blood thinner 08/23/18 [History Last Taken 08/23/18 08:00] aspirin 81 mg chewable tablet 81 mg PO DAILY@0800 health maintenance 08/23/18 [History Last Taken 08/23/18] atorvastatin 40 mg tablet 40 mg PO QHS cholesterol 08/23/18 [History Last Taken 08/23/18] bicalutamide 50 mg tablet 150 mg PO QHS hormone 08/23/18 [History Last Taken 08/22/18] cholecalciferol (vitamin D3) 25 mcg (1,000 unit) tablet 1,000 unit PO DAILY supplement 08/23/18 [History Last Taken 08/23/18] levothyroxine 112 mcg tablet 112 mcg PO DAILY thyroid 08/23/18 [History Last Taken 08/23/18] melatonin-pyridoxine HCl (vitamin B6) 3 mg-10 mg tablet 1 ea PO QHS PRN Sleep 08/23/18 [History Last Taken 08/22/18] omeprazole 20 mg capsule,delayed release 40 mg PO DAILY gerd 08/23/18 [History Last Taken 08/23/18] sotalol 80 mg tablet 40 mg PO BID heart 08/23/18 [History Last Taken 08/22/18] trospium 20 mg tablet 20 mg PO BID overactive bladder 08/23/18 [History Last Taken 08/23/18 08:00] isosorbide mononitrate 30 mg tablet,extended release 24 hr 30 mg PO DAILY #30 tabs 08/25/18 [Rx Last Taken Unknown] ascorbic acid (vitamin C) 250 mg tablet 250 mg PO .COMPLEX 04/17/19 [History Last Taken Unknown] budesonide-formoterol HFA 160 mcg-4.5 mcg/actuation aerosol inhaler 2 puff inhalation BID 04/17/19 [History Last Taken Unknown] calcium carbonate 650 mg calcium (1,625 mg) tablet 650 mg PO BID 04/17/19 [History Last Taken Unknown] capsaicin 0.025 % topical cream 1 applic topical TID 04/17/19 [History Last Taken Unknown] cetirizine 10 mg tablet 10 mg PO DAILY 04/17/19 [History Last Taken Unknown] ferrous sulfate 325 mg (65 mg iron) tablet 325 mg PO .COMPLEX 04/17/19 [History Last Taken Unknown] fluticasone propionate 50 mcg/actuation nasal spray,suspension 2 spray intranasal DAILY 04/17/19 [History Last Taken Unknown] ipratropium bromide 21 mcg (0.03 %) nasal spray 1 spray intranasal TID 04/17/19 [History Last Taken Unknown] nitroglycerin 0.4 mg sublingual tablet 0.4 mg sublingual Q5-15M 04/17/19 [History Last Taken Unknown] omega-3 fatty acids 1,000 mg capsule (Fish Oil Concentrate) 1,000 mg PO BID 04/17/19 [History Last Taken Unknown] phenazopyridine 200 mg tablet 200 mg PO TID 04/17/19 [History Last Taken Unknown] losartan 25 mg tablet 25 mg PO DAILY #30 tabs 04/18/19 [Rx Last Taken Unknown] Allergy/AdvReac Type Severity Reaction Status Date / Time No Known Allergies Allergy Verified 01/08/24 11:12 Family History Mother , age 54 Myocardial infarction CAD (coronary artery disease) Scarlet fever Father , Age 70 CAD (coronary artery disease) Myocardial infarction Sudden cardiac ETOH abuse Tobacco abuse Surgical History History of carotid endarterectomy History of cholecystectomy History of left heart catheterization (05/11/13) Hx of CABG 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 Social History Smoking Status: Former smoker ROS ROS ED Constitutional Constitutional ED: Denies chills or fever(s) Eyes Eyes: Denies change in vision or diplopia ENT ENT ED: Denies rhinorrhea or sore throat Cardiovascular Cardiovascular: Denies chest pain or palpitations Respiratory/Chest Respiratory/Chest: Denies cough or dyspnea Gastrointestinal Gastrointestinal: Reports as per HPI, abdominal pain and vomiting; Denies diarrhea or nausea Genitourinary Genitourinary ED: Denies dysuria or hematuria Musculoskeletal Musculoskeletal: Denies back pain or neck pain Integumentary Denies abscess or rash Neurologic Neurologic: Denies headache(s), paresthesias or weakness Psychiatric Psychiatric: Denies anxiety or suicidal thoughts EXAM Physical Exam Const Vital Signs: 01/08/24 11:10 01/08/24 11:18 01/08/24 12:11 Temperature 97.7 F L Temperature Source Temporal Pulse Rate 103 H 93 Respiratory Rate 18 12 Respiratory Effort Normal Respiratory Pattern Normal Blood Pressure 152/99 H 155/94 H Blood Pressure Mean 116 114 Pulse Ox 99 99 Oxygen Delivery Method Room Air Room Air Positive well nourished and well developed General Appearance ED: well developed and NAD HEENT Reports moist mucous membranes normocephalic and atraumatic Eyes PERRL and EOMs intact bilaterally Neck full ROM and supple Resp normal respiratory effort and clear to auscultation bilaterally Cardio regular rate, regular rhythm and no murmurs GI non-tender and non-distended Auscultation: normoactive bowel sounds Palpation: soft Back/Spine no CVA tenderness General Back: other FROM Extremity normal to inspection General Extremety ED: Negative for edema, pulses abnormal or tenderness General Extremity: Negative for edema or pulses abnormal Neuro oriented x3, CN's II-XII intact bilaterally and no sensory deficits noted Sensorium / Orientation: awake and alert Motor Exam: strength 5/5 throughout Skin no rashes or lesions noted and no wounds MDM MDM MDM Narrative Medical decision making narrative: High suspicion of esophageal foreign body. Patient is anticoagulated on apixaban but he has not taken it for over 24 hours given the symptoms. He understands risk of bleeding. GI is not available today Wednesday, so discussed with surgery Dr. Cristina who will take the patient to endoscopy. Discharged from ER to endoscopy. Discharge Plan Triage Chief Complaint: Foreign Body ED Provider: Kyler Sultana Dx/Rx/DC Orders Clinical Impression: Impacted esophageal foreign body Prescriptions: No Action ascorbic acid (vitamin C) 250 mg tablet 250 mg PO .COMPLEX Rx Instructions: 250 mg PO TID on Mon, Weds and Fri only; budesonide-formoterol 160-4.5 mcg/actuation HFA aerosol inhaler 2 puff INHALATION BID calcium carbonate 650 mg calcium (1,625 mg) tablet 650 mg PO BID capsaicin 0.025 % cream 1 applic TOPICAL TID cetirizine 10 mg tablet 10 mg PO DAILY ferrous sulfate 325 mg (65 mg iron) tablet 325 mg PO .COMPLEX Rx Instructions: 325 mg PO 3 tablets by mouth every Mon, Weds, and Fri after a meal; omega-3 fatty acids [Fish Oil Concentrate] 1,000 mg capsule 1,000 mg PO BID fluticasone propionate 50 mcg/actuation spray,suspension 2 spray INTRANASAL DAILY ipratropium bromide 0.03 % spray,non-aerosol 1 spray INTRANASAL TID nitroglycerin 0.4 mg tablet, sublingual 0.4 mg SUBLINGUAL Q5-15M phenazopyridine 200 mg tablet 200 mg PO TID losartan 25 mg tablet 25 mg PO DAILY Qty: 30 11RF atorvastatin 40 MG tablet 40 mg PO QHS bicalutamide 50 MG tablet 150 mg PO QHS sotalol 80 MG tablet 40 mg PO BID omeprazole 20 MG capsule 40 mg PO DAILY aspirin 81 MG tablet,chewable 81 mg PO DAILY@0800 albuterol sulfate 1 INHALER inhaler 2 puff inhalation Q4H PRN PRN (Reason: Sob &/Or Wheezing) levothyroxine 112 MCG tablet 112 mcg PO DAILY trospium 20 MG tablet 20 mg PO BID cholecalciferol (vitamin D3) 1,000 UNIT tablet 1,000 unit PO DAILY apixaban 5 MG tablet 5 mg PO BID acetaminophen 325 MG tablet 650 mg PO Q6H PRN (Reason: Pain) melatonin-pyridoxine HCl (B6) 1 EACH tablet 1 ea PO QHS PRN (Reason: Sleep) isosorbide mononitrate 30 MG tablet 30 mg PO DAILY Qty: 30 0RF [facility] Care Provider[facility] [facility] [[facility] Provider[facility] - Disposition Disposition: Home, Self Care
--- NOTE | 2024-01-08 12:30 | PCM.HP.STD ---
HPI - General HPI Narrative ALEJANDRO MOTT, is a 78 M who presents with food impaction. Patient reports he was eating chicken yesterday around lunchtime and this felt like it got stuck in his distal esophagus. He said since then he has been vomiting and retching when the saliva builds up. He is still not able to eat or drink anything. He reports he is on Eliquis. He is also on a PPI chronically. He reports he has had food impactions in the past. The last time this happened was 10 years ago. 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 Chronic atrial fibrillation Diabetes mellitus, type II Encounter for monitoring sotalol therapy Former tobacco use Hyperlipidemia Hypertension Obstructive sleep apnea Peripheral vascular disease Right bundle branch block Home Medications acetaminophen 325 mg tablet 650 mg PO Q6H PRN Pain 08/23/18 [History Last Taken Unknown] albuterol sulfate 90 mcg/actuation aerosol inhaler 2 puff inhalation Q4H PRN PRN Sob &/Or Wheezing 08/23/18 [History Last Taken Unknown] apixaban 5 mg tablet 5 mg PO BID blood thinner 08/23/18 [History Last Taken 08/23/18 08:00] aspirin 81 mg chewable tablet 81 mg PO DAILY@0800 health maintenance 08/23/18 [History Last Taken 08/23/18] atorvastatin 40 mg tablet 40 mg PO QHS cholesterol 08/23/18 [History Last Taken 08/23/18] bicalutamide 50 mg tablet 150 mg PO QHS hormone 08/23/18 [History Last Taken 08/22/18] cholecalciferol (vitamin D3) 25 mcg (1,000 unit) tablet 1,000 unit PO DAILY supplement 08/23/18 [History Last Taken 08/23/18] levothyroxine 112 mcg tablet 112 mcg PO DAILY thyroid 08/23/18 [History Last Taken 08/23/18] melatonin-pyridoxine HCl (vitamin B6) 3 mg-10 mg tablet 1 ea PO QHS PRN Sleep 08/23/18 [History Last Taken 08/22/18] omeprazole 20 mg capsule,delayed release 40 mg PO DAILY gerd 08/23/18 [History Last Taken 08/23/18] sotalol 80 mg tablet 40 mg PO BID heart 08/23/18 [History Last Taken 08/22/18] trospium 20 mg tablet 20 mg PO BID overactive bladder 08/23/18 [History Last Taken 08/23/18 08:00] isosorbide mononitrate 30 mg tablet,extended release 24 hr 30 mg PO DAILY #30 tabs 08/25/18 [Rx Last Taken Unknown] ascorbic acid (vitamin C) 250 mg tablet 250 mg PO .COMPLEX 04/17/19 [History Last Taken Unknown] budesonide-formoterol HFA 160 mcg-4.5 mcg/actuation aerosol inhaler 2 puff inhalation BID 04/17/19 [History Last Taken Unknown] calcium carbonate 650 mg calcium (1,625 mg) tablet 650 mg PO BID 04/17/19 [History Last Taken Unknown] capsaicin 0.025 % topical cream 1 applic topical TID 04/17/19 [History Last Taken Unknown] cetirizine 10 mg tablet 10 mg PO DAILY 04/17/19 [History Last Taken Unknown] ferrous sulfate 325 mg (65 mg iron) tablet 325 mg PO .COMPLEX 04/17/19 [History Last Taken Unknown] fluticasone propionate 50 mcg/actuation nasal spray,suspension 2 spray intranasal DAILY 04/17/19 [History Last Taken Unknown] ipratropium bromide 21 mcg (0.03 %) nasal spray 1 spray intranasal TID 04/17/19 [History Last Taken Unknown] nitroglycerin 0.4 mg sublingual tablet 0.4 mg sublingual Q5-15M 04/17/19 [History Last Taken Unknown] omega-3 fatty acids 1,000 mg capsule (Fish Oil Concentrate) 1,000 mg PO BID 04/17/19 [History Last Taken Unknown] phenazopyridine 200 mg tablet 200 mg PO TID 04/17/19 [History Last Taken Unknown] losartan 25 mg tablet 25 mg PO DAILY #30 tabs 04/18/19 [Rx Last Taken Unknown] Allergy/AdvReac Type Severity Reaction Status Date / Time No Known Allergies Allergy Verified 01/08/24 11:12 Family History Mother , age 54 Myocardial infarction CAD (coronary artery disease) Scarlet fever Father , Age 70 CAD (coronary artery disease) Myocardial infarction Sudden cardiac ETOH abuse Tobacco abuse Surgical History History of carotid endarterectomy History of cholecystectomy History of left heart catheterization (05/11/13) Hx of CABG 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 Social History Smoking Status: Former smoker ROS Constitutional Constitutional: Denies anorexia, chills or fatigue Eyes Eyes: Denies blurry vision ENT HEENT: Denies abnormal hearing Cardiovascular Cardiovascular: Denies chest pain Respiratory/Chest Respiratory/Chest: Denies cough or dyspnea Gastrointestinal Gastrointestinal: Reports dysphagia and vomiting; Denies abdominal pain Genitourinary Genitourinary: Denies change in urinary stream or difficulty urinating Musculoskeletal Musculoskeletal: Denies abnormal gait Neurologic Neurologic: Denies dizziness Psychiatric Psychiatric: Denies anxiety Endocrine Endocrinology: Denies heat intolerance Vital Signs Vital Signs Vital Signs: 01/08/24 11:10 01/08/24 11:18 01/08/24 12:11 Temperature 97.7 F L Temperature Source Temporal Pulse Rate 103 H 93 Respiratory Rate 18 12 Respiratory Effort Normal Respiratory Pattern Normal Blood Pressure 152/99 H 155/94 H Blood Pressure Mean 116 114 Pulse Ox 99 99 Oxygen Delivery Method Room Air Room Air Weight Weight: 182 lb 14.4 oz Body Mass Index (BMI) 28.6 Physical Exam Const oriented x3 and no apparent distress Resp normal respiratory effort GI soft to palpation and non-tender Extremity normal to inspection Assessment & Plan Assessment/Plan (1) Impacted esophageal foreign body: QUALIFIERS: Encounter type: initial encounter Qualified Code(s): T18.108A - Unspecified foreign body in esophagus causing other injury, initial encounter PLAN: The patient seems to have a chicken bolus impacted in the distal esophagus. I discussed performing EGD with foreign body removal in the endoscopy suite downstairs. I discussed the procedure in detail with him as well as the risks including but not limited to bleeding, infection, perforation, aspiration. I also explained the increased risk of bleeding since he is on blood thinners. Patient understands all the risks and is willing to proceed. I also informed him that I would like to see him back in 2 weeks and I will schedule him for elective EGD with possible biopsies or dilation. Carlo Cristina MD Pager: [facility] [address] [place] [address], [address] [place] [address] Office:
--- NOTE | 2024-01-08 13:14 | PCM.PN.BLA ---
Progress Note I performed an EGD on the patient and I was able to advance the food bolus into his stomach. The patient had a severe hiatal hernia with half of his stomach up into his chest. His esophagus appears very contracted. I was able to advance the food bolus through and he has a patent GE junction. I will forward him onto Dr. Downing at [facility] for evaluation for large hiatal hernia repair
--- NOTE | 2024-01-08 13:21 | OP.EGD_ITS ---
Patient Name: Hero Hargrove Procedure Date: 01/08/2024 12:29 PM Date of : 1945 Age: 78 Procedure: Upper GI endoscopy Indications: Foreign body in the esophagus Providers: Carlo Cristina MD Medicines: Propofol per Anesthesia Patient Profile: This is a 78 year old male. Refer to note in patient chart for documentation of history and physical. Complications: No immediate complications. Estimated blood loss: Minimal. Procedure: Pre-Anesthesia Assessment: - Prior to the procedure, a History and Physical was performed, and patient medications and allergies were reviewed. The patient's tolerance of previous anesthesia was also reviewed. The risks and benefits of the procedure and the sedation options and risks were discussed with the patient. All questions were answered, and informed consent was obtained. Prior Anticoagulants: The patient has taken Eliquis (apixaban), last dose was 1 day prior to procedure. After reviewing the risks and benefits, the patient was deemed in satisfactory condition to undergo the procedure. After obtaining informed consent, the endoscope was passed under direct vision. Throughout the procedure, the patient's blood pressure, pulse, and oxygen saturations were monitored continuously. The Endoscope was introduced through the mouth, and advanced to the fourth part of duodenum. The upper GI endoscopy was accomplished without difficulty. The patient tolerated the procedure well. Scope In: 1:03:38 PM Scope Out: 1:12:06 PM Total Procedure Duration Time 0 hours 8 minutes 28 seconds Findings: A large hiatal hernia was present. The examined duodenum was normal. The stomach was normal. Food was found at the gastroesophageal junction. It was advanced into the stomach. The patient had a large hiatal hernia containing half of the stomach. I was able to advance the food bolus and his GE junction is patent. Estimated blood loss was minimal. Impression: - Large hiatal hernia. - Normal examined duodenum. - Normal stomach. - Food at the gastroesophageal junction. - No specimens collected. Recommendation: - Discharge patient to home. - Soft diet for 2 weeks. - Continue present medications. - Resume Eliquis (apixaban) at prior dose tomorrow. - Return to my office in 1 week. Procedure Code(s): --- Professional --- 84404, Esophagogastroduodenoscopy, flexible, transoral; diagnostic, including collection of specimen(s) by brushing or washing, when performed (separate procedure) Diagnosis Code(s): --- Professional --- K44.9, Diaphragmatic hernia without obstruction or gangrene T18.128A, Food in esophagus causing other injury, initial encounter T18.108A, Unspecified foreign body in esophagus causing other injury, initial encounter CPT copyright 2021 [employer]. All rights reserved. The codes documented in this report are preliminary and upon youth nutritional monitor review may be revised to meet current compliance requirements. Carlo Cristina MD 01/08/2024 1:20:30 PM This report has been signed electronically. Number of Addenda: 0 Note Initiated On: 01/08/2024 12:29 PM
--- NOTE | 2024-01-08 13:21 | OP.CCLET_ITS ---
01/08/2024 [facility] Re : Upper GI endoscopy procedure for Hero [facility] This procedure was performed on Monday, January 08, 2024. My impressions and recommendations are as follows: Impressions : - Large hiatal hernia. - Normal examined duodenum. - Normal stomach. - Food at the gastroesophageal junction. - No specimens collected. Recommendations : - Discharge patient to home. - Soft diet for 2 weeks. - Continue present medications. - Resume Eliquis (apixaban) at prior dose tomorrow. - Return to my office in 1 week. My findings are described in the full procedure note, which is enclosed. If I can be of further assistance, please feel free to contact me at Doctor phone number(s): , Work: . Sincerely, Carlo Cristina MD 01/08/2024 1:20:30 PM This report has been signed electronically.
--- NOTE | 2024-01-08 13:59 | SUR.PHASEI ---
Neighbor Nikia called at [phone] to a ride home.
== END 2024-01-08 12:45 | disposition home or self-care (01) ==
PROVIDERS: Surgery; Emergency Provider Emergency Medicine; Visit Provider Emergency Medicine
PROC: 0DJ08ZZ Inspection of Upper Intestinal Tract, Via Natural or Artificial Opening Endoscopic (ICD-10-PCS; CPT 43235; principal; 2024-01-08 12:45)
DX: T18.128A Food in esophagus causing other injury, initial encounter (principal); I48.20 Chronic atrial fibrillation, unspecified; E11.9 Type 2 diabetes mellitus without complications; K44.9 Diaphragmatic hernia without obstruction or gangrene; I25.10 Atherosclerotic heart disease of native coronary artery without angina pectoris; G47.33 Obstructive sleep apnea (adult) (pediatric); I10 Essential (primary) hypertension; Z87.891 Personal history of nicotine dependence; Z95.1 Presence of aortocoronary bypass graft; Z79.899 Other long term (current) drug therapy; Z79.82 Long term (current) use of aspirin; Z79.01 Long term (current) use of anticoagulants; X58.XXXA Exposure to other specified factors, initial encounter
CPT/HCPCS: 43235; 99284; A4216

== ENCOUNTER 2025-03-18 21:11 | Emergency (ER) | payer OTHER, SELFPAY ==
[2025-03-18 21:13] VITALS: BP 113/66; PULSE 80; RESP 28; TEMP 36.7; O2SAT 100; BMI 25.4
--- NOTE | 2025-03-18 21:32 | EKG12_ITS ---
Test Reason : Blood Pressure : */* mmHG Vent. Rate : 82 BPM Atrial Rate : 82 BPM P-R Int : 214 ms QRS Dur : 148 ms QT Int : 426 ms P-R-T Axes : 10 68 32 degrees QTcB Int : 497 ms Sinus rhythm with 1st degree A-V block Right bundle branch block Abnormal ECG Confirmed by Donovan Malhotra ([id number]), business editor MADAY FRANCO ([id number]) on 03/20/2025 6:17:26 AM Referred By: Kyler Sultana Confirmed By: Donovan Malhotra
--- NOTE | 2025-03-18 21:33 | ED.VIS.DYS ---
HPI History of Present Illness Chief Complaint: Shortness of Breath Informant: patient, family and EMS Narrative Narrative: 79-year-old male start feeling lightheaded, blurry vision, near syncopal but did not lose consciousness. Family states that he appeared dyspneic at the time to the point where they gave him a puff from one of his inhalers. The patient states he does not recall feeling dyspneic. He denies having any chest discomfort or palpitations. He has a history of A-fib and does not feel when he goes into it. He states right now he feels fine. [place] [facility] [place] which ended up also requiring a repair of perforated bowel and resection of a piece of bowel. He was discharged from the hospital 2 weeks ago and has been doing pretty well since then. Has been eating and drinking. Trying to drink fluids and states he always has a water bottle with him. No pain or swelling in one of his legs. No history of DVT or PE. He is anticoagulated on apixaban. states when he was feeling poorly she checked his blood pressure and it was in the 60s. 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 Chronic atrial fibrillation Obstructive sleep apnea Former tobacco use Peripheral vascular disease Diabetes mellitus, type II Hyperlipidemia Encounter for monitoring sotalol therapy Right bundle branch block Hypertension Home Medications ?Medication ?Instructions ?Recorded ?Last Taken ?Type acetaminophen 325 mg tablet 975 mg PO Q8H PRN PRN Pain 08/23/18 Unknown History albuterol sulfate 90 mcg/actuation 2 puff inhalation Q4H PRN PRN Sob 08/23/18 Unknown History aerosol inhaler &/Or Wheezing apixaban 5 mg tablet 5 mg PO BID blood thinner 08/23/18 08/23/18 08:00 History aspirin 81 mg chewable tablet 81 mg PO DAILY@0800 health 08/23/18 08/23/18 History maintenance atorvastatin 40 mg tablet 20 mg PO QHS cholesterol 08/23/18 08/23/18 History levothyroxine 112 mcg tablet 112 mcg PO DAILY thyroid 08/23/18 08/23/18 History melatonin-pyridoxine HCl (vitamin 1 ea PO QHS PRN Sleep 08/23/18 08/22/18 History B6) 3 mg-10 mg tablet omeprazole 20 mg capsule,delayed 40 mg PO DAILY gerd 08/23/18 08/23/18 History release sotalol 80 mg tablet 40 mg PO BID heart 08/23/18 08/22/18 History trospium 20 mg tablet 20 mg PO BID overactive bladder 08/23/18 08/23/18 08:00 History cetirizine 10 mg tablet 10 mg PO DAILY 04/17/19 Unknown History ferrous sulfate 325 mg (65 mg 325 mg PO .COMPLEX 04/17/19 Unknown History iron) tablet fluticasone propionate 50 2 spray intranasal DAILY 04/17/19 Unknown History mcg/actuation nasal spray,suspension nitroglycerin 0.4 mg sublingual 0.4 mg sublingual Q5-15M 04/17/19 Unknown History tablet omega-3 fatty acids 1,000 mg 1,000 mg PO BID 04/17/19 Unknown History capsule (Fish Oil Concentrate) phenazopyridine 200 mg tablet 200 mg PO TID 04/17/19 Unknown History amiodarone 200 mg tablet 200 mg PO DAILY 03/18/25 Unknown History amlodipine 10 mg tablet 10 mg PO DAILY 03/18/25 Unknown History carboxymethylcellulose sodium 1 % 1 drp ophthalmic (eye) BID 03/18/25 Unknown History eye drops (Artificial Tears (carboxymethylcellulose)) duloxetine 30 mg capsule,delayed 30 mg PO QHS 03/18/25 Unknown History release (Cymbalta) duloxetine 30 mg capsule,delayed 60 mg PO BREAKFAST 03/18/25 Unknown History release (Cymbalta) hydroxyzine HCl 10 mg tablet 20 mg PO DAILY PRN anxiety 03/18/25 Unknown History losartan 25 mg tablet 50 mg PO DAILY 03/18/25 Unknown History olodaterol 2.5 mcg/actuation mist 2 inh inhalation DAILY 03/18/25 Unknown History for inhalation sennosides 8.6 mg-docusate sodium 2 tab-cap PO QHS 03/18/25 Unknown History 50 mg tablet tamsulosin 0.4 mg capsule 0.4 mg PO QHS 03/18/25 Unknown History trazodone 100 mg tablet 100 mg PO QHS 03/18/25 Unknown History Allergy/AdvReac Type Severity Reaction Status Date / Time No Known Allergies Allergy Verified 03/18/25 21:32 Family History Mother , age 54 Myocardial infarction CAD (coronary artery disease) Scarlet fever Father , Age 70 CAD (coronary artery disease) Myocardial infarction Sudden cardiac ETOH abuse Tobacco abuse Surgical History S/P percutaneous endoscopic gastrostomy (PEG) tube placement History of colectomy History of repair of hiatal hernia History of carotid endarterectomy Hx of CABG 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 History of cholecystectomy History of left heart catheterization (05/11/13) 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) Social History (Updated 03/18/25 @ 21:26 by Anyi Lazo) household members: spouse current occupational status: retired Smoking Status: Former smoker ROS ROS ED Constitutional Constitutional ED: Denies chills or fever(s) Eyes Eyes: Reports blurry vision bilateral (When felt lightheaded; resolved now); Denies change in vision or diplopia ENT ENT ED: Denies rhinorrhea or sore throat Cardiovascular Cardiovascular: Reports as per HPI and lightheadedness; Denies chest pain, leg edema, palpitations or syncope Respiratory/Chest Respiratory/Chest: Reports dyspnea; Denies cough Gastrointestinal Gastrointestinal: Denies abdominal pain, diarrhea, nausea or vomiting Genitourinary Genitourinary ED: Denies dysuria or hematuria Musculoskeletal Musculoskeletal: Denies back pain or neck pain Integumentary Denies abscess or rash Neurologic Neurologic: Denies headache(s), paresthesias or weakness Psychiatric Psychiatric: Denies anxiety or suicidal thoughts EXAM Physical Exam Const Vital Signs: 03/18/25 21:13 03/18/25 21:32 03/18/25 21:56 Temperature 98.1 F Temperature Source Oral Pulse Rate 80 Pulse Rate [Lying] Pulse Rate [Sitting (for 1 minute prior to obtaining)] Pulse Rate [Standing (for 1 minute prior to obtaining)] Respiratory Rate 28 H Respiratory Effort Respiratory Pattern Blood Pressure 113/66 Blood Pressure [Lying] Blood Pressure [Sitting (for 1 minute prior to obtaining)] Blood Pressure [Standing (for 1 minute prior to obtaining)] Blood Pressure Mean 81 Blood Pressure Mean [Lying] Blood Pressure Mean [Sitting (for 1 minute prior to obtaining)] Blood Pressure Mean [Standing (for 1 minute prior to obtaining)] Pulse Ox 100 100 Oxygen Delivery Method Room Air Room Air Room Air 03/18/25 21:56 03/18/25 22:21 03/18/25 23:00 Temperature 98.1 F 98.3 F Temperature Source Oral Oral Pulse Rate 80 76 Pulse Rate [Lying] Pulse Rate [Sitting (for 1 minute prior to obtaining)] Pulse Rate [Standing (for 1 minute prior to obtaining)] Respiratory Rate 18 20 H Respiratory Effort Short of Breath Respiratory Pattern Tachypnea Blood Pressure 139/67 H 133/67 H Blood Pressure [Lying] Blood Pressure [Sitting (for 1 minute prior to obtaining)] Blood Pressure [Standing (for 1 minute prior to obtaining)] Blood Pressure Mean 91 89 Blood Pressure Mean [Lying] Blood Pressure Mean [Sitting (for 1 minute prior to obtaining)] Blood Pressure Mean [Standing (for 1 minute prior to obtaining)] Pulse Ox 100 100 Oxygen Delivery Method Room Air Room Air Room Air 03/19/25 00:07 Temperature Temperature Source Pulse Rate Pulse Rate [Lying] 79 Pulse Rate [Sitting (for 1 minute prior to obtaining)] 90 Pulse Rate [Standing (for 1 minute prior to obtaining)] 95 Respiratory Rate Respiratory Effort Respiratory Pattern Blood Pressure Blood Pressure [Lying] 131/67 H Blood Pressure [Sitting (for 1 minute prior to obtaining)] 95/59 L Blood Pressure [Standing (for 1 minute prior to obtaining)] 77/51 L Blood Pressure Mean Blood Pressure Mean [Lying] 88 Blood Pressure Mean [Sitting (for 1 minute prior to obtaining)] 71 Blood Pressure Mean [Standing (for 1 minute prior to obtaining)] 59 Pulse Ox Oxygen Delivery Method Positive well nourished and well developed General Appearance ED: well developed and NAD HEENT Reports moist mucous membranes normocephalic and atraumatic Eyes PERRL and EOMs intact bilaterally Neck full ROM, supple and no meningeal signs Resp normal respiratory effort and clear to auscultation bilaterally Cardio regular rate, regular rhythm and no murmurs Rate: Negative for tachycardic GI non-tender and non-distended GI Narrative: Surgical incisions with dressings clean dry and intact no tenderness. G-tube site benign. Beneath the dressings, he has an abdominal incision that is healing by secondary intent with granulation tissue present, no obvious sign of infection. Auscultation: normoactive bowel sounds Palpation: soft Back/Spine no CVA tenderness General Back: other FROM Extremity normal to inspection General Extremety ED: Negative for edema, pulses abnormal or tenderness General Extremity: Negative for edema or pulses abnormal Neuro oriented x3, CN's II-XII intact bilaterally and no sensory deficits noted Neuro Narrative: No focal neurologic deficits. Alert and oriented x 3. Normal speech. Sensorium / Orientation: awake and alert Motor Exam: strength 5/5 throughout Psych mental status grossly normal Skin no rashes or lesions noted and no wounds MDM MDM MDM Narrative Medical decision making narrative: EKG is unchanged shows no acute injury pattern. Looking at his blood counts, his hemoglobin is 9.4. The last 1 I have is from several years ago, was in the 13 range. In conjunction with this, his BUN is 32 with a creatinine of 1.48 both of which are elevated compared with his priors as well. And considering the possibility of GI bleed causing these abnormalities, we did a Hemoccult. His stool was brown, he has had no symptoms of melena or bright red blood per rectum, but the Hemoccult is positive. He is anticoagulated. We then did orthostatics, and he is very positive with his blood pressure going from 130s lying to 77/51 while standing. He did not feel near syncopal, this is after 500 cc bolus of IV fluids. Additionally his troponin is slightly elevated at 37 this is nonspecific, will be repeated in 2 hours but given all of this I think he should be admitted for further care. Since he was just [facility] the [facility], I think he should be transferred there if they have a bed. states he had an accidental fall this past week and bruised his back, and thinks his abdomen is more protuberant than normal. Going to add a CT abd/pelv here while waiting for the [facility] to return our request for transfer. checked out to night ED physician at shift change for CT results and final disposition. Lab Data Attestation: I reviewed the patient's lab results. Labs: Laboratory Results - last 24 hr 03/18/25 03/18/25 21:40 23:50 WBC 9.6 RBC 2.98 L Hgb 9.4 L Hct 29.1 L MCV 97.7 H MCH 31.5 MCHC 32.3 RDW Std Deviation 49.7 H RDW Coeff of John 13.9 Plt Count 271 MPV 10.4 Immature Gran % (Auto) 0.800 Neut % (Auto) 68.2 Lymph % (Auto) 19.6 [place] % (Auto) 9.1 Eos % (Auto) 1.8 Baso % (Auto) 0.5 Absolute Neuts (auto) 6.5 Absolute Lymphs (auto) 1.88 Nucleated RBC % 0 Sodium 137 Potassium 4.3 Chloride 103 Carbon Dioxide 18.6 L Anion Gap 16 H BUN 32 H Creatinine 1.48 H Estim Creat Clear Calc 39.80 L Est GFR (MDRD) Non-Af 48 L BUN/Creatinine Ratio 21.4 H Glucose 95 Calcium 9.2 Troponin T High Sens 37 H Troponin T Hi Sens 2 Hr 30 H Radiography Diagnostic Testing: Clinical Impression(s) from Imaging Studies Chest X-Ray 03/18/25 22:00 IMPRESSION: NO ACUTE FINDINGS. Reading Location: [id number] Rhythm Strip Rhythm Strip: Sinus Rhythm Rate: 80 Ectopy: PVC(s) EKG Initial EKG: Attestation: I personally reviewed and interpreted this EKG as follows: Interpretation: Sinus Rhythm, No Acute Injury Pattern, RBBB and AV Block (1st deg) Prior EKG tracings: available for review Prior: Unchanged Discharge Plan Triage Chief Complaint: Shortness of Breath ED Provider: Kyler Sultana Dx/Rx/DC Orders Clinical Impression: Near syncope, Transient hypotension, Orthostatic hypotension, Occult GI bleeding, ABLA (acute blood loss anemia), Anticoagulated on apixaban Prescriptions: No Action cetirizine 10 mg tablet 10 mg PO DAILY ferrous sulfate 325 mg (65 mg iron) tablet 325 mg PO .COMPLEX Rx Instructions: 325 mg PO 3 tablets by mouth every Mon, Weds, and Fri after a meal; omega-3 fatty acids [Fish Oil Concentrate] 1,000 mg capsule 1,000 mg PO BID fluticasone propionate 50 mcg/actuation spray,suspension 2 spray INTRANASAL DAILY nitroglycerin 0.4 mg tablet, sublingual 0.4 mg SUBLINGUAL Q5-15M phenazopyridine 200 mg tablet 200 mg PO TID atorvastatin 40 MG tablet 20 mg PO QHS sotalol 80 MG tablet 40 mg PO BID omeprazole 20 MG capsule 40 mg PO DAILY aspirin 81 MG tablet,chewable 81 mg PO DAILY@0800 albuterol sulfate 1 INHALER inhaler 2 puff inhalation Q4H PRN PRN (Reason: Sob &/Or Wheezing) levothyroxine 112 MCG tablet 112 mcg PO DAILY trospium 20 MG tablet 20 mg PO BID apixaban 5 MG tablet 5 mg PO BID acetaminophen 325 MG tablet 975 mg PO Q8H PRN PRN (Reason: Pain) melatonin-pyridoxine HCl (B6) 1 EACH tablet 1 ea PO QHS PRN (Reason: Sleep) duloxetine [Cymbalta] 30 mg capsule,delayed release(DR/EC) 60 mg PO BREAKFAST duloxetine [Cymbalta] 30 mg capsule,delayed release(DR/EC) 30 mg PO QHS hydroxyzine HCl 10 mg tablet 20 mg PO DAILY PRN (Reason: anxiety) olodaterol 2.5 mcg/actuation mist 2 inh inhalation DAILY tamsulosin 0.4 mg capsule 0.4 mg PO QHS trazodone 100 mg tablet 100 mg PO QHS amiodarone 200 mg tablet 200 mg PO DAILY amlodipine 10 mg tablet 10 mg PO DAILY sennosides-docusate sodium 8.6-50 mg tablet 2 tab-cap PO QHS Artificial Tears (cmc) 1 % drops 1 drp ophthalmic (eye) BID losartan 25 mg tablet 50 mg PO DAILY [facility] [Primary Care Provider] - Print Language: Turkmen
[2025-03-18] MEDS: hydrOXYzine PAM 25 MG Capsule 50 MG PO (21:40)
[2025-03-18] MEDS: 0.9% Normal Saline (500mL Bag) 500 ML 999 ML IV (21:43)
[2025-03-18 21:46] LABS: Absolute Lymphocyte Count 1.88 X10^3/uL (0.83-4.51); Absolute Neutrophil Count 6.5 X10^3/uL (2.0-7.7); Basophil# 0.05 X10^3/uL; Basophil% 0.5 % (0-1); Eosinophil# 0.17 X10^3/uL; Eosinophils% 1.8 % (0-5); Hematocrit 29.1 % (40-54); Hemoglobin 9.4 g/dL (13.0-16.5); Lymphocyte # 1.88 X10^3/ul (0.83-4.51); Lymphocyte % 19.6 % (19-41); Mean Corp Hgb Conc 32.3 g/dL (32-36); Mean Corpuscular Hgb 31.5 pg (27.0-32.0); Mean Corpuscular Volume 97.7 fL (80-94); Mean Platelet Vol. 10.4 fl (6.2-12.0); Monocyte# 0.87 X10^3/uL; Monocyte% 9.1 % (0-10); NRBC Flagged by Analyzer 0 % (0-5); Neutrophil # 6.53 X10^3/uL (2.7-7.7); Neutrophil % 68.2 % (47-70); Platelet Count 271 K/mm3 (150-450); RBC Distribution Width CV 13.9 % (11.6-14.6); RBC Distribution Width SD 49.7 fl (35.1-43.9); Red Blood Count 2.98 M/mm3 (4.6-6.2); White Blood Count 9.6 K/mm3 (4.4-11.0)
--- OUTSIDE RECORDS SUMMARY | 2025-03-18 21:52 | XMS RPT_ITS | CCD ---
Author Organization [facility] Care Team Providers Care Cleaning Porter Name Role Phone RIDERDAVID Attending Unavailable ERIC LOUISE Primary Care Unavailable [place] Primary Care Provider UnavailDr. Arnie Simmons Attending Provider [phone] [place] Primary Care Provider Dr. Kyler Jacobo Emergency Provider [phone] Dr. Carlo Cristina Attending Provider [phone] Frank SAUCEDA, Prasanna Unavailable Shana Becerra) Primary Care Provider [phone] [facility], [place] Primary Care Unavailable Mikael Jacques Attending [facility], [place] Primary Care Unavailable Mikael Jacques Attending Unavailable Mikael Jacques Referring Unavailable [facility], [place] Primary Care Unavailable Kyler Sultana Attending [facility], [place] Primary Care Unavailable Arnie Matthews Attending Unavailable Mikael Jacques Referring Unavailable Carlo Cristina Attending [facility], [place] Primary Care Unavailable Kyler Sultana Referring Unavailable Allergies Allergy Classification Reported Allergen(s) Allergy Type Date of Onset Reaction(s) Facility (1 source) Lisinopril Drug Allergy 8 Unknown [facility] (1 source) oxyCODONE Drug Allergy 8 Other: See Comments [facility] (1 source) water pills; Translations: [water pills] Propensity to adverse reactions (disorder) 3 [facility] Repository Medications Current Medications Medication Drug Class(es) Dates Sig (Normalized) Sig (Original) acetaminophen 325 mg oral tablet (3 sources) Start: 08-23-2018 take 650 mg by mouth every six hours Acetaminophen Active 650 MG PO EVERY 6 HOURS August 23, 2018 1:00am take 2 tablets by [facility] every six hours as needed acetaminophen (TYLENOL) 325 mg tablet Ta ke 650 mg by mouth every 6 hours as needed. 0 Active Comment on above: Take 650 mg by mouth every 6 hours as needed. Albuterol (3 sources) beta2-Adrenergic Agonist Start: 08-23-2018 take 1 puff(s) by inhalation every four hours as needed Albuterol Sulfate Active 2 PUFF INHALATION EVERY 4 HOURS NEEDED August 23, 2018 1:00am take 2 puff(s) by in halation every six hours as needed for wheezing albuterol HFA (PROVENTIL HFA, VENTOLIN H FA) 90 mcg/actuation inhaler Inhale 2 Puffs as instructed every 6 hours as needed for Wheezing/Shortness of Breath. 0 Active Comment on above: Inhale 2 Puffs as in structed every 6 hours as needed for Wheezing/Shortness of Breath. apixaban 5 mg oral tablet (3 sources) Factor Xa Inhibitor Start: 8 take 5 mg by mouth twice daily Apixaban Active 5 MG PO TWICE A DAY August 23, 2018 1:00am Comment on above: Take 5 mg by mouth t wice daily. ascorbic acid 250 mg oral tablet (2 sources) Vitamin C Start: 9 take 250 mg by mouth three times daily Ascorbic Acid (Vitamin C) Active 250 MG PO .COMPLEX April 17, 2019 12:00am 250 mg PO TID on Mon, Weds and Fri only; aspirin 81 mg chewable tablet (3 sources) Platelet Aggregation Inhibitor, Nonsteroidal Anti-inflammatory Drug Start: 8 take 81 mg by mouth once daily Aspirin Active 81 MG PO DAILY@0800 August 23, 2018 1:00am take 1 tablet by mouth once [place] BABY ASPIRIN ORAL Take 1 tablet by mouth once daily. 0 Active Comment on above: Take 1 tablet by moreno th once daily. atorvastatin 40 mg oral tablet (3 sources) HMG-CoA Reductase Inhibitor Start: 8 take 40 mg by mouth at bedtime Atorvastatin Active 40 MG PO AT BEDTIME August 23, 2018 1:00am atorvastatin (LI PITOR) 80 mg tablet Take 40 mg by mouth once daily. 0 Active Comment on above: Take 40 mg by mouth once daily. bicalutamide 50 mg oral tablet (3 sources) Androgen Receptor Inhibitor Start: 8 take 150 mg by mouth at bedtime Bicalutamide Active 150 MG PO AT BEDTIME August 23, 2018 1:00am take 3 tablets by mouth once lisbeth ly bicalutamide (CASODEX) 50 mg tablet Take 150 mg by mouth once daily. 0 Active Comment on above: Take 150 mg by mouth once daily. 120 actuat budesonide 0.16 mg/actuat / formoterol fumarate 0.0045 mg/actuat metered dose inhaler (3 sources) Corticosteroid, beta2-Adrenergic Agonist Start: 04-17-2019 take 1 puff(s) by inhalation twice daily Budesonide-Formoter ol Active 2 PUFF INHALATION TWICE A DAY April 17, 2019 12:00am take 1 puff(s) by in halation twice daily budesonide-formoterol (SYMBICORT) 160-4. 5 mcg/actuation inhaler Inhale 1 Puff as instructed twice daily. 0 Active Comment on above: Inhale 1 Puff as ins tructed twice daily. calcium carbonate 1625 mg oral tablet (2 sources) Start: take 650 mg by mouth twice daily Calcium Carbonate Active 650 MG PO TWICE A DAY April 17, 2019 12:00am capsaicin 0.25 mg/ml topical cream (2 sources) Start: Capsaicin Active 1 APPLIC TOPICAL THREE TIMES A DAY April 17, 2019 12:00am cetirizine hydrochloride 10 mg oral tablet (3 sources) Histamine-1 Receptor Antagonist Start: take 10 mg by mouth once daily Cetirizine Active 10 MG PO DAILY April 17, 2019 12:00am Comment on above: Take 10 mg by mouth once daily. cholecalciferol 0.025 mg oral tablet (3 sources) Vitamin D Start: take 1000 [IU] by mouth once daily Cholecalciferol (Vitamin D3) Active 1000 UNIT PO DAILY August 23, 2018 1:00am Comment on above: Take 1,000 Units by mouth once daily. ferrous sulfate 325 mg oral tablet (2 sources) Start: take 3 tablets by mouth once after mealtime Ferrous Sulfate Active 325 MG PO .COMPLEX April 17, 2019 12:00am 325 mg PO 3 tablets by mouth every Mon, Weds, and Fri after a meal; fluticasone propionate 0.05 mg/actuat metered dose nasal spray (3 sources) Corticosteroid Start: Fluticasone Propionate Active 2 SPRAY INTRANASAL DAILY April 17, 2019 12:00am take 2 spray(s) nasal route once daily fluticasone (ALLERGY RELIEF, FLUTICASONE,) 50 mcg/actuation nasal spray Use 2 Sprays in each nostril once daily. 0 Active Comment on above: Use 2 Sprays in each nostril once daily. ipratropium bromide 0.021 mg/actuat metered dose nasal spray (2 sources) Anticholinergic Start: Ipratropium [place] Active 1 SPRAY INTRANASAL THREE TIMES A DAY April 17, 2019 12:00am 24 hr isosorbide mononitrate 30 mg extended release oral tablet (2 sources) Nitrate Vasodilator Start: take 30 mg by mouth once daily Isosorbide Mononitrate Active 30 MG PO DAILY August 25, 2018 1:00am levothyroxine sodium 0.112 mg oral tablet (3 sources) l-Thyroxine Start: take 112 ug by mouth once daily Levothyroxine Active 112 MCG PO DAILY August 23, 2018 1:00am Comment on above: Take 112 mcg by mout h daily before breakfast. losartan potassium 25 mg oral tablet (2 sources) Angiotensin 2 Receptor Jennifer Start: take 25 mg by mouth once daily Losartan Active 25 MG PO DAILY April 18, 2019 12:00am melatonin 3 mg / vitamin b6 10 mg oral tablet (2 sources) Start: Melatonin-Pyridoxine Hcl (B6) Active 1 EACH PO AT BEDTIME August 23, 2018 1:00am nitroglycerin 0.4 mg sublingual tablet (2 sources) Nitrate Vasodilator Start: Nitroglycerin Active 0.4 MG SL every 5 to 15 minutes April 17, 2019 12:00am [place]-3 Fatty Acids (Fish Oil Concentrate) 1,000 mg capsule (2 sources) Start: take 1 capsule by mouth twice daily [place]-3 Fatty Acids (Fish Oil Concentrate) 1,000 mg capsule Active 1000 MG PO TWICE A DAY April 17, 2019 12:00am omeprazole 20 mg delayed release oral capsule (3 sources) Proton Pump Inhibitor Start: take 40 mg by mouth once daily Omeprazole Active 40 MG PO DAILY August 23, 2018 1:00am take 1 capsule by mouth once lisbeth ly omeprazole (PRILOSEC) 20 mg capsule Take 20 mg by mouth once daily. 0 Active Comment on above: Take 20 mg by mouth once daily. phenazopyridine hydrochloride 200 mg oral tablet (3 sources) Start: 9 take 200 mg by mouth three times daily Phenazopyridine Active 200 MG PO THREE TIMES A DAY April 17, 2019 12:00am phenazopyridine HCl (AZO ORAL) Take by mouth. 0 Active Comment on above: Take by mouth. sotalol hydrochloride 80 mg oral tablet (3 sources) Antiarrhythmic Start: 08-23-2018 take 40 mg by mouth twice daily Sotalol Active 40 MG PO TWICE A DAY August 23, 2018 1:00am sotalol (BETAPAC E) 80 mg tablet Take 40 mg by mouth twice daily. 0 Active Comment on above: Take 40 mg by mouth twice daily. trospium chloride 20 mg oral tablet (3 sources) Cholinergic Muscarinic Antagonist Start: 08-23-2018 take 20 mg by mouth twice daily Trospium Active 20 MG PO TWICE A DAY August 23, 2018 1:00am Comment on above: Take 20 mg by mouth twice daily. Completed/Discontinued Medications Medication Drug Class(es) Dates Sig (Normalized) Sig (Original) amLODIPine 5 mg oral tablet (3 sources) Dihydropyridine Calcium Channel Jennifer Start: 08-23-2018 End: 04-17-2019 take 5 mg by mouth once daily Amlodipine Discontinued 5 MG PO DAILY August 23, 2018 1:00am April 17, 2019 6:50pm take 1 tablet by mouth once [place] amLODIPine (NORVASC) 10 mg tablet Take 10 mg by mouth once daily. 0 Active Comment on above: Take 10 mg by mouth once daily. cloNIDine hydrochloride 0.1 mg oral tablet (2 sources) Central alpha-2 Adrenergic Agonist Start: 2017 End: 2018 take 0.1 mg by mouth twice daily Clonidine Hcl Discontinued 0.1 MG PO TWICE A DAY August 23, 2018 1:00am April 17, 2019 6:50pm cranberry fruit concentrate (AZO CRANBERRY ORAL) (1 source) take 2 tablets by mouth twice daily cranberry fruit concentrate (AZO CRANBERRY ORAL) Take 2 tablets by mouth twice daily. 0 Active Comment on above: Take 2 tablets by mo [facility] twice daily. diclofenac sodium 0.01 mg/mg topical gel (1 source) Nonsteroidal Anti-inflammatory Drug diclofenac sodium (VOLTAREN) 1 % topical gel Apply to affected area twice daily. 0 Active Comment on above: Apply to affected ar ea twice daily. diphenhydrAMINE hydrochloride 50 mg oral capsule (1 source) Histamine-1 Receptor Antagonist take 1 capsule by mouth every twenty-four hours as needed diphenhydrAMINE (BENADRYL) 50 mg capsule Take 50 mg by mouth at bedtime as needed. 0 Active Comment on above: Take 50 mg by mouth at bedtime as needed. docusate sodium 100 mg oral capsule (3 sources) Start: 2017 End: 2018 take 100 mg by mouth twice daily Docusate Sodium Discontinued 100 MG PO TWICE A DAY August 23, 2018 1:00am April 17, 2019 6:50pm Comment on above: Take 100 mg by mouth twice daily. hydroCHLOROthiazide 12.5 mg / losartan potassium 50 mg oral tablet (2 sources) Thiazide Diuretic, Angiotensin 2 Receptor Jennifer Start: 2018 End: 2018 take 1 tablet by mouth once daily Losartan-Hydrochlorot hiazide (Hyzaar) 50-12.5 mg tablet Discontinued 1 TABLET PO DAILY April 18, 2019 12:00am April 18, 2019 1:55pm 24 hr metoprolol succinate 50 mg extended release oral tablet (3 sources) beta-Adrenergic Jennifer Start: 2017 End: 2018 take 50 mg by mouth once daily Metoprolol Succinate Discontinued 50 MG PO DAILY August 23, 2018 1:00am April 17, 2019 6:49pm metoprolol tartr ate, short acting, (LOPRESSOR) 100 mg tablet Take 50 mg by mouth once daily. 0 Active Comment on above: Take 50 mg by mouth once daily. Eepft-9-NPT-EPA-Fish Oil (FISH OIL) 1,000 mg (120 mg-180 mg) cap (1 source) take 1 capsule by mouth twice daily Muidr-3-DOW-EPA-Fish Oil (FISH OIL) 1,000 mg (120 mg-180 mg) cap Take 2 g by mouth twice daily. 0 Active Comment on above: Take 2 g by mouth tw ice daily. traMADol hydrochloride 50 mg oral tablet (3 sources) Opioid Agonist Start: 8 End: 9 take 50 mg by mouth every twelve hours Tramadol Discontinued 50 MG PO Q12H August 23, 2018 1:00am April 17, 2019 6:49pm take 1 tablet by mouth twice lisbeth ly traMADol (ULTRAM) 50 mg tablet Take 50 mg by mouth twice daily. 0 Active Comment on above: Take 50 mg by mouth twice daily. Problems Active Problems Problem Classification Problem Date Documented Da te Episodic/Chronic Cancer of prostate (1 source) Malignant tumor of prostate; Translations: [Malignant neoplasm of prostate] Onset: 8 04-29-2018 Chronic Cardiac dysrhythmias (2 sources) Chronic atrial fibrillation; Translations: [Chronic atrial fibrillation, unspecified] 04-17-2019 Chronic Complication of device; implant or graft (2 sources) Arteriosclerosis of coronary artery bypass graft; Translations: [Atherosclerosis of coronary artery bypass graft(s) without angina pectoris] 04-17-2019 Chronic Conduction disorders (2 sources) Right bundle branch block; Translations: [Unspecified right bundle-branch block] 04-17-2019 Chronic Coronary atherosclerosis and other heart disease (2 sources) Coronary atherosclerosis; Translations: [Atherosclerotic heart disease of [place] coronary artery without angina pectoris] 04-17-2019 Chronic Diabetes mellitus without complication (2 sources) Type 2 diabetes mellitus; Translations: [Type 2 diabetes mellitus without complications] 04-17-2019 Chronic Disorders of lipid metabolism (2 sources) Hyperlipidemia; Translations: [Hyperlipidemia, unspecified] 04-17-2019 Chronic Essential hypertension (2 sources) Hypertensive disorder; Translations: [Essential (primary) hypertension] 04-17-2019 Chronic Nonspecific chest pain (2 sources) Chest pain; Translations: [Chest pain, unspecified] 04-17-2019 Episodic Other aftercare (2 sources) Patient encounter status; Translations: [Encounter for therapeutic drug level monitoring] 04-17-2019 Episodic Other gastrointestinal disorders (2 sources) Diarrhea; Translations: [Diarrhea, unspecified] 02-08-2021 Episodic Other hematologic conditions (2 sources) Raised cardiac enzyme or marker; Translations: [Other specified abnormalities of plasma proteins] 04-17-2019 Episodic Other injuries and conditions due to external causes (1 source) Foreign body in esophagus; Translations: [Unspecified foreign body in esophagus causing other injury, initial encounter] 01-08-2024 Episodic Other injuries and conditions due to external causes (1 source) Injury of head; Translations: [Unspecified injury of head, initial encounter] 08-24-2023 Episodic Other injuries and conditions due to external causes (1 source) Unspecified foreign body in esophagus causing other injury, initial encounter; Translations: [Unspecified foreign body in esophagus causing other injury, initial encounter] Onset: 4 Episodic Other injuries and conditions due to external causes (1 source) Food in esophagus causing other injury, initial encounter; Translations: [Food in esophagus causing other injury, initial encounter] Onset: 4 Episodic Peripheral and visceral atherosclerosis (4 sources) Stenosis of lower limb artery; Translations: [Unspecified atherosclerosis of [place] arteries of extremities, bilateral legs] 04-17-2019 Chronic Residual codes; unclassified (2 sources) Obstructive sleep apnea syndrome; Translations: [Obstructive sleep apnea (adult) (pediatric)] 04-17-2019 Chronic Screening and history of mental health and substance abuse codes (2 sources) Ex-tobacco user; Translations: [Personal history of nicotine dependence] 04-17-2019 Episodic Superficial injury; contusion (1 source) Contusion of eyeball and orbital tissues, right eye, initial encounter; Translations: [Periorbital contusion of right eye] 08-24-2023 Episodic Past or Other Problems Problem Classification Problem Date Documented Date Episodic/Chronic Malaise and fatigue (1 source) Weakness; Translations: [Weakness] Onset: 04-05-2023 Episodic Other injuries and conditions due to external causes (1 source) Unspecified injury of head, initial encounter; Translations: [Unspecified injury of head, initial encounter] Onset: 08-20-2023 Episodic Residual codes; unclassified (2 sources) History of cardiac catheterization; Translations: [Other specified postprocedural states] Onset: 05-11-2013 04-17-2019 Episodic Results Test Name Value Interpretation Reference Range Facility TECHNICAL ONLY APon 01-16-20 CASE REPORT Normal [facility] Comment on above: Order Comment: Speci men Type: FORMALIN-FIXED PARAFFIN-EMBEDDED TISSUE SPECIMEN Ordering Facility: [facility] Address: ATTN: [place] [address] Result Comment: Surg ica Pathology Report Case: [id number] Authorizing Provider: Catherine Valenzuela MD Collected: 01/15/2025 12:59 PM Ordering Location: [facility] Received: 01/15/2025 12:[address] [facility] Pathologist: Donovan Reed MD Specimen: Block(s) and/or Slide(s), 1 BLOCK ([id number]) Performed By: #### [id number] #### [facility] IA [id number] [address] [place] [address] [place] TECH ONLY Normal [facility] Comment on above: Order Comment: Speci men Type: FORMALIN-FIXED PARAFFIN-EMBEDDED TISSUE SPECIMEN Ordering Facility: [facility] Address: ATTN: [place] [address] Result Comment: Merleneo w is a list of requested stains performed and being returned to the client: A1-1 [employer] (Ziehl Neelsen) A1-2 Control Return tracking number: [id number] at 1621 EDT Performed By: #### L [id number] #### [facility] CLIA [id number] [address] [place], [place] [address] [facility] Mary 01-10-2024 CNPN Telephone (AGGENS4) ALEJANDRO MOTT ([id number]) 1945 M Date Time Provider Department 01/10/24 [facility] PROVIDER XIAO During your visit today, we recorded the following information about you: Felecia Graham MA 01/10/2024 10:37 AM Signed Received referral from [facility] for Hiatal Hernia. Left voicemail for patient to call the office to schedule. Felecia Graham MA Allergies As of Date: 01/10/2024 Noted Allergy Reaction LISINOPRIL 04/22/2018 16 - Unknown OXYCODONE 04/28/2018 14 - Other: See Comments Comments: irritability Date Reviewed: 08/29/2018 Reviewed by: Haleigh Diaz (Rn), RN - Fully Assessed Reason for Visit: External Referrals/resources [909] Prescriptions as of 01/10/2024 - phenazopyridine HCl (AZO ORAL) Take by mouth. - cranberry fruit concentrate (AZO CRANBERRY ORAL) Take 2 tablets by mouth twice daily. - BABY ASPIRIN ORAL Take 1 tablet by mouth once daily. - traMADol (ULTRAM) 50 mg tablet Take 50 mg by mouth twice daily. - diphenhydrAMINE (BENADRYL) 50 mg capsule Take 50 mg by mouth at bedtime as needed. - cetirizine (ZYRTEC) 10 mg tablet Take 10 mg by mouth once daily. - bicalutamide (CASODEX) 50 mg tablet Take 150 mg by mouth once daily. - apixaban (ELIQUIS) 5 mg tab(s) Take 5 mg by mouth twice daily. - acetaminophen (TYLENOL) 325 mg tablet Take 650 mg by mouth every 6 hours as needed. - metoprolol tartrate, short acting, (LOPRESSOR) 100 mg tablet Take 50 mg by mouth once daily. - sotalol (BETAPACE) 80 mg tablet Take 40 mg by mouth twice daily. - amLODIPine (NORVASC) 10 mg tablet Take 10 mg by mouth once daily. - atorvastatin (LIPITOR) 80 mg tablet Take 40 mg by mouth once daily. - diclofenac sodium (VOLTAREN) 1 % topical gel Apply to affected area twice daily. - docusate sodium (COLACE) 100 mg capsule Take 100 mg by mouth twice daily. - omeprazole (PRILOSEC) 20 mg capsule Take 20 mg by mouth once daily. - trospium (SANCTURA) 20 mg tablet Take 20 mg by mouth twice daily. - Juprm-2-LKD-EPA-Fish Oil (FISH OIL) 1,000 mg (120 mg-180 mg) cap Take 2 g by mouth twice daily. - levothyroxine (SYNTHROID) 112 mcg tablet Take 112 mcg by mouth daily before breakfast. - fluticasone (ALLERGY RELIEF, FLUTICASONE,) 50 mcg/actuation nasal spray Use 2 Sprays in each nostril once daily. - albuterol HFA (PROVENTIL HFA, VENTOLIN HFA) 90 mcg/actuation inhaler Inhale 2 Puffs as instructed every 6 hours as needed for Wheezing/Shortness of Breath. - budesonide-formoterol (SYMBICORT) 160-4.5 mcg/actuation inhaler Inhale 1 Puff as instructed twice daily. - cholecalciferol (VITAMIN D3) 1,000 unit tab tablet Take 1,000 Units by mouth once daily. Problem List As Of Date 01/10/2024 Noted Resolved Prostate cancer (HCC) [C61] 04/29/2018 Encounter Status:Closed by FELECIA GRAHAM on 01/10/24 [facility] EGD Reporton 01-08-2024 EGD Report [facility] Medical Records Department [address] [place] [address] EGD Report MR#: [id number] Acct: [id number] Name: ALEJANDRO MOTT Rep #: [id number] : 1945 78 From: Carlo Cristina MD PCP: [facility] Status:DEP ER Patient Name: Alejandro Mott Procedure Date: 01/08/2024 12:29 PM Date of : 1945 Age: 78 Procedure: Upper GI endoscopy Indications: Foreign body in the esophagus Providers: Carlo Cristina MD Medicines: Propofol per Anesthesia Patient Profile: This is a 78 year old male. Refer to note in patient chart for documentation of history and physical. Complications: No immediate complications. Estimated blood loss: Minimal. Procedure: Pre-Anesthesia Assessment: - Prior to the procedure, a History and Physical was performed, and patient medications and allergies were reviewed. The patient's tolerance of previous anesthesia was also reviewed. The risks and benefits of the procedure and the sedation options and risks were discussed with the patient. All questions were answered, and informed consent was obtained. Prior Anticoagulants: The patient has taken Eliquis (apixaban), last dose was 1 day prior to procedure. After reviewing the risks and benefits, the patient was deemed in satisfactory condition to undergo the procedure. After obtaining informed consent, the endoscope was passed under direct vision. Throughout the procedure, the patient's blood pressure, pulse, and oxygen saturations were monitored continuously. The Endoscope was introduced through the mouth, and advanced to the fourth part of duodenum. The upper GI endoscopy was accomplished without difficulty. The patient tolerated the procedure well. Scope In: 1:03:38 PM Scope Out: 1:12:06 PM Total Procedure Duration Time 0 hours 8 minutes 28 seconds Findings: A large hiatal hernia was present. The examined duodenum was normal. The stomach was normal. Food was found at the gastroesophageal junction. It was advanced into the stomach. The patient had a large hiatal hernia containing half of the stomach. I was able to advance the food bolus and his GE junction is patent. Estimated blood loss was minimal. Impression: - Large hiatal hernia. - Normal examined duodenum. - Normal stomach. - Food at the gastroesophageal junction. - No specimens collected. Recommendation: - Discharge patient to home. - Soft diet for 2 weeks. - Continue present medications. - Resume Eliquis (apixaban) at prior dose tomorrow. - Return to my office in 1 week. Procedure Code(s): --- Professional --- 11486, Esophagogastroduodenos copy, flexible, transoral; diagnostic, including collection of specimen(s) by brushing or washing, when performed (separate procedure) Diagnosis Code(s): --- Professional --- K44.9, Diaphragmatic hernia without obstruction or gangrene T18.128A, Food in esophagus causing other injury, initial encounter T18.108A, Unspecified foreign body in esophagus causing other injury, initial encounter CPT copyright 2021 [employer]. All rights reserved. The codes documented in this report are preliminary and upon machine feed operator review may be revised to meet current compliance requirements. Carlo Cristina MD 01/08/2024 1:20:30 PM This report has been signed electronically. Number of Addenda: 0 Note Initiated On: 01/08/2024 12:29 PM 01/08/24 1321 Date Carlo Cristina MD Cosigner Signature: Date (if indicated) CC: Dr. Carlo Cristina MD; [facility] Date Dictated: 01/08/24 1229 Date Transcribed: Supervisor Microwave: CORAL Signed Normal [facility] Emergency Department Summary on 01-08-2024 Emergency Department Summary [facility] Medical Records Department [address] [place] [address] Emergency Department Summary 01/08/24 MR#: [id number] Acct: [id number] Name: ALEJANDRO MOTT Rep #: [id number] : 1945 78 From: Kyler Sultana MD PCP: [facility] Status:REG ER Location: ED HPI History of Present Illness Chief Complaint: Foreign Body Informant: patient Narrative Narrative: Patient having just under 24 hours worth of what he thinks may be an esophageal foreign body/obstruction. He states he was eating chicken when it occurred. He states he is asymptomatic until he tries to eat or drink something, then he gets pain at his epigastrium, right before dumps into my stomach and followed by profuse vomiting everything that he tries to eat or drink. He has not been able to keep anything down since then. No hematemesis. No melena. He states that he has had this in the past, he had to have an EGD twice to clear the blockage and the last time was about [address] Pate. 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 Chronic atrial fibrillation Diabetes mellitus, type II Encounter for monitoring sotalol therapy Former tobacco use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 There is severe diffuse narrowing. Left common iliac artery: There is mild diffuse narrowing. Left external iliac artery: There is mild diffuse narrowing. Left internal iliac artery: There is moderate diffuse narrowing. RIGHT LOWER EXTREMITY Right common femoral artery: Mild to moderate narrowing at the distal aspect of the superficial femoral artery due to plaque formation. A vascular stent is present at the junction of the right common femoral artery and superficial femoral artery. Right profundus femoris: No demonstrated narrowing. Right superficial femoral: Proximal and distal one third vascular stents with complete occlusion within the stent and in the middle one third region of the right superficial femoral artery. Right popliteal artery: A vascular stent is present which is completely occluded with thrombus. Right tibioperoneal trunk: There is severe diffuse narrowing. Collateral blood vessels/reconstitution at the origin of the tibioperoneal trunk perfuse the right calf Right anterior tibial artery: There is moderate diffuse narrowing, with visualization of the vessel to the distal calf. Right posterior tibial artery: Completely occluded Right peroneal artery: There is moderate diffuse narrowing, with visualization of the vessel to the distal calf. Right knee prosthesis is present. LEFT LOWER EXTREMITY Left common femoral artery: A vascular stent is present. Mild to moderate IntraStent stenosis.. Left profundus femoris: No demonstrated narrowing. Left superficial femoral: Severe stenosis in the proximal one third aspect of the left superficial femoral artery. A vascular stent is present in the distal one third aspect of the artery. Complete occlusion of the middle to distal one third aspect of the left superficial femoral artery. Collateral vessels/reconstitution at the junction of the superficial femoral artery and popliteal artery. Left popliteal artery: There is severe diffuse narrowing. Left tibioperoneal trunk: There is severe diffuse narrowing. Left anterior tibial artery: There is moderate diffuse narrowing, with visualization of the vessel to the distal calf. Left posterior tibial artery: Nearly completely occluded with multiple areas of severe stenoses and minimal blood flow perfusion through the vessel. Left peroneal artery: There is severe diffuse narrowing, with visualization of the vessel to t (more content not included)... Normal [facility] Determination of erythrocyte mean corpuscular volume (MCV)Ordered By: Dr. Jacques on 03-30-2023 MCV (RBC) [Entitic vol] 95.8 fL 80-94 [facility] Emergency Department Summary on 03-30-2023 Emergency Department Summary [facility] Medical Records Department [address] [place] [address] Emergency Department Summary 03/30/23 MR#: [id number] Acct: [id number] Name: ALEJANDRO MOTT Rep #: [id number] : 1945 77 From: Mikael Jacques DO PCP: [facility],[place] Status:REG ER Location: ED HPI History of Present Illness Chief Complaint: Lower Extremity Injury Narrative Narrative: 77-year-old male presenting with right leg weakness. He says at times it starts to ache. It is worse at night when he is laying down to sleep. When he walks if he walks a long distance it will start to ache as well. He states he has history of vascular stents in the past. [facility]. Patient is on Eliquis for A-fib history. Since they tried to call yesterday [facility] They told him to come to the ER to get checked for a blood clot. He is not describing a lot of pain. He does not have any swelling. He states he has had to use a walker. No direct trauma. 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 Chronic atrial fibrillation Diabetes mellitus, type II Encounter for monitoring sotalol therapy Former tobacco use Hyperlipidemia Hypertension Obstructive sleep apnea Peripheral vascular disease Right bundle branch block Home Medications acetaminophen 325 mg tablet 650 mg PO Q6H PRN Pain 08/23/18 [History Last Taken Unknown] albuterol sulfate 90 mcg/actuation aerosol inhaler 2 puff inhalation Q4H PRN PRN Sob /Or Wheezing 08/23/18 [History Last Taken Unknown] apixaban 5 mg tablet 5 mg PO BID blood thinner 08/23/18 [History Last Taken 08/23/18 08:00] aspirin 81 mg chewable tablet 81 mg PO DAILY@0800 health maintenance 08/23/18 [History Last Taken 08/23/18] atorvastatin 40 mg tablet 40 mg PO QHS cholesterol 08/23/18 [History Last Taken 08/23/18] bicalutamide 50 mg tablet 150 mg PO QHS hormone 08/23/18 [History Last Taken 08/22/18] cholecalciferol (vitamin D3) 25 mcg (1,000 unit) tablet 1,000 unit PO DAILY supplement 08/23/18 [History Last Taken 08/23/18] levothyroxine 112 mcg tablet 112 mcg PO DAILY thyroid 08/23/18 [History Last Taken 08/23/18] melatonin-pyridoxine HCl (vitamin B6) 3 mg-10 mg tablet 1 ea PO QHS PRN Sleep 08/23/18 [History Last Taken 08/22/18] omeprazole 20 mg capsule,delayed release 40 mg PO DAILY gerd 08/23/18 [History Last Taken 08/23/18] sotalol 80 mg tablet 40 mg PO BID heart 08/23/18 [History Last Taken 08/22/18] trospium 20 mg tablet 20 mg PO BID overactive bladder 08/23/18 [History Last Taken 08/23/18 08:00] isosorbide mononitrate 30 mg tablet,extended release 24 hr 30 mg PO DAILY #30 tabs 08/25/18 [Rx Last Taken Unknown] ascorbic acid (vitamin C) 250 mg tablet 250 mg PO .COMPLEX 04/17/19 [History Last Taken Unknown] budesonide-formoterol HFA 160 mcg-4.5 mcg/actuation aerosol inhaler 2 puff inhalation BID 04/17/19 [History Last Taken Unknown] calcium carbonate 650 mg calcium (1,625 mg) tablet 650 mg PO BID 04/17/19 [History Last Taken Unknown] capsaicin 0.025 % topical cream 1 applic topical TID 04/17/19 [History Last Taken Unknown] cetirizine 10 mg tablet 10 mg PO DAILY 04/17/19 [History Last Taken Unknown] ferrous sulfate 325 mg (65 mg iron) tablet 325 mg PO .COMPLEX 04/17/19 [History Last Taken Unknown] fluticasone propionate 50 mcg/actuation nasal spray,suspension 2 spray intranasal DAILY 04/17/19 [History Last Taken Unknown] ipratropium bromide 21 mcg (0.03 %) nasal spray 1 spray intranasal TID 04/17/19 [History Last Taken Unknown] nitroglycerin 0.4 mg sublingual tablet 0.4 mg sublingual Q5-15M 04/17/19 [History Last Taken Unknown] omega-3 fatty acids 1,000 mg capsule (Fish Oil Concentrate) 1,000 mg PO BID 04/17/19 [History Last Taken Unknown] phenazopyridine 200 mg tablet 200 mg PO TID 04/17/19 [History Last Taken Unknown] losartan 25 mg tablet 25 mg PO DAILY #30 tabs 04/18/19 [Rx Last Taken Unknown] Allergy/AdvReac Type Severity Reaction Status Date / Time water pills AdvReac gout Uncoded 03/30/23 12:14 Family History Mother , age 54 Myocardial infarction CAD (coronary artery disease) Scarlet fever Father , Age 70 CAD (coronary artery disease) Myocardial infarction Sudden cardiac ETOH abuse Tobacco abuse Surgical History History of carotid endarterectomy History of cholecystectomy History of left heart catheterization (05/11/13) Hx of CABG 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 Normal [facility] Hematocrit Auto (Bld) [Volum e fraction]Ordered By: Dr. Jacques on 03-30-2023 Hematocrit (Bld) [Volume fraction] 40.7 % 40-54 [facility] - Chemistry and C hemistry - challengeOrdered By: Dr. Jacques on 03-30-2023 CO2 [Moles/Vol] 29.0 mmol/L 21.0-32.0 [facility] Urea nitrogen/Creatinine [Mass ratio] 21.0 mg/mg 07-30 [facility] - Hematology and Cell countsOrdered By: Dr. Jacques on 03-30-2023 Erythrocyte distribution width (RBC) [Entitic vol] 45.7 fL 35.1-43.9 [facility] Erythrocyte distribution width (RBC) [Ratio] 12.9 % 11.6-14.6 [facility] Immature granulocytes/100 WBC (Bld) 0.600 % 0.0-0.9 [facility] Comment on above: IG% - Immature Granu locytes (promyelocytes, myelocytes and metamyelocytes) > 1% indicates that a LEFT SHIFT is Present. MCH (RBC) [Entitic mass] 32.0 pg 27.0-32.0 [facility] Nucleated RBC/100 WBC (Bld) [Ratio] 0 % 0-5 [facility] MCHC Auto (RBC) [Mass/Vol]Or dered By: Dr. Jacques on 03-30-2023 MCHC (RBC) [Mass/Vol] 33.4 g/dL 32-36 [facility] No Panel InformationOrdered By: Dr. Jacques on 03-30-2023 Estimated Creatinine Clearance Calc 73.07 ml/min [facility] Estimated GFR (MDRD) Amer 112 mL/min >60 [facility] Comment on above: GFR Calc Estimated GFR (MDRD) Non-Af Amer 92 mL/min >60 [facility] Comment on above: Non- GFR Calc Platelets bldOrdered By: Dr. Jacques on 03-30-2023 Platelets (Bld) [#/Vol] 200 10*3/uL 150-450 [facility] Serum or plasma calcium messi urement (mass/volume)Ordered By: Dr. Jacques on 03-30-2023 Calcium [Mass/Vol] 9.2 mg/dL 8.5-10.1 [facility] Serum or plasma creatinine m easurement (mass/volume)Ordered By: Dr. Jacques on 03-30-2023 Creatinine [Mass/Vol] 0.86 mg/dL 0.70-1.30 [facility] Comment on above: The validity of the calculated GFR & GFRAA in patients over 70 years has not been determined. Clinical correlation is essential. Serum or plasma urea nitroge n measurement (mass/volume)Ordered By: Dr. Jacques on 03-30-2023 Urea nitrogen [Mass/Vol] 18 mg/dL 7-18 [facility] Thin prep Papanicolaou smear with manual screeningOrdered By: Dr. Jacques on 03-30-2023 Thin prep Papanicolaou smear with manual screening 4 5-15 [facility] Venous Duplex US, Unilateral on 03-30-2023 Venous Duplex US, Unilateral [facility] [address] [place] [address] Venous Duplex US, Unilateral 03/30/23 1249 MR#: [id number] Acct: [id number] Name: ALEJANDRO MOTT Rep #: [id number] : 1945 77 From: Arnie Matthews MD Attending Dr: Status: REG ER Ordering Dr: Mikael Jacques DO Date: 03/30/23 Location: ED Sex: M C Admitted: Reason For Study: Rt Leg Pain RIGHT LEFT GSV is normal. CFV is compressible, spontaneous, phasic, CFV is compressible, spontaneous, phasic, competent, and demonstrates normal competent and demonstrates normal augmentation. augmentation. FV is compressible, spontaneous, phasic, competent and demonstrates normal augmentation. POP V is compressible, spontaneous, phasic, competent and demonstrates normal augmentation. T/P Trunk is compressible. PTV is compressible. RT PerV is compressible. Rt GSV harvested from knee to ankle for prior CABG. Incidental Finding - drumbeat flow seen in Rt Distal [employer]. Rt [employer] velocity - 15.8/0.0 cm/sec No flow seen in Rt Proximal SFA with color or pulsed wave doppler. Extensive heterogenous calcified plaque noted. Procedure This is a venous duplex using B-mode, color flow and spectral Doppler. Exam performed portable in ED. The exam was diagnostic. The study was technically difficult due to calcified shadowing. A preliminary report was called and/or faxed to Dr. Jacques. VL/Venous Duplex US, Unilateral Interpretation Summary Deep veins of the right lower extremity are patent and compressible segmentally. There is no evidence of right lower extremity deep vein thrombosis. The right great saphenous vein appears patent and compressible segmentally. Inidental finding of right SFA atherosclerosis, occlusion. Ordering Physician: Mikael Jacques Referring Physician: SARAVANAN Performed By: Jeremiah Mann, RVT 03/30/23 1541 Date Arnie Matthews MD CC: Dr. Mikael Jacques, DO; [place] [facility] Date Dictated: 03/30/23 1249 Date Transcribed: 03/30/231540 Supervisor Microwave: Signed Nel [facility] .Auto Diffon 08-23-2018 Ammonia mass conc (P) 0.50 10 3/mcL Normal 0.15-1.00 [facility] Comment on above: Performed By: #### C ALANA HORN, ANEU #### [place] [address] #### TROP, PBNP, BMP, GFR #### [address] [address] Basophils #/vol (Bld) 0.00 10 3/mcL Normal 0.00-0.19 [facility] ([place]) Comment on above: Performed By: #### C ALANA HORN, ANEU #### [place] [address] #### TROP, PBNP, BMP, GFR #### [address] [address] Basophils/100 WBC (Bld) 0.5 % Normal 0.0-2.5 [facility] Comment on above: Performed By: #### C ALANA HORN, ANEU #### [place] [address] #### TROP, PBNP, BMP, GFR #### [facility] [address] [place], [place] [address] Eosinophils #/vol (Bld) 0.20 10 3/mcL Normal 0.00-0.40 [facility] Comment on above: Performed By: #### C BC, ADIFF, ANEU #### [address] [address] #### TROP, PBNP, BMP, GFR #### [address] [address] Eosinophils/100 WBC (Bld) 2.8 % Normal 0.0-7.0 [facility] Comment on above: Performed By: #### C BC, ADIFF, ANEU #### [place] [address] #### TROP, PBNP, BMP, GFR #### [address] [address] Lymphocytes #/vol (Bld) 0.50 10 3/mcL Low 0.77-3.85 [facility] Comment on above: Performed By: #### C BC, ADIFF, ANEU #### [place] [address] #### TROP, PBNP, BMP, GFR #### [address] [address] Lymphocytes/100 WBC (Bld) 7.1 % Low 10.0-50.0 [facility] Comment on above: Performed By: #### C BC, ADIFF, ANEU #### [place] [address] #### TROP, PBNP, BMP, GFR #### [address] [address] Monocytes/100 WBC (Bld) 7.9 % Normal 1.7-13.0 [facility] Comment on above: Performed By: #### C BC, ADIFF, ANEU #### [place] [address] #### TROP, PBNP, BMP, GFR #### [address] [address] Neutrophils/100 WBC (Bld) 81.7 % High 37.0-80.0 [facility] Comment on above: Performed By: #### C ALANA HORN, ANEU #### [facility] [address] [address] #### TROP, PBNP, BMP, GFR #### [address] [address] .GFRon 08-23-2018 GFR Non- 71 ml/min/1.73sqm Normal [facility] ([place] Comment on above: Result Comment: GFR Population mean for , Non- Americans Ages 20-29 = 116 mL/min/1.73 sq.m. Ages 30-39 = 107 mL/min/1.73 sq.m. Ages 40-49 = 99 mL/min/1.73 sq.m. Ages 50-59 = 93 mL/min/1.73 sq.m. Ages 60-69 = 85 mL/min/1.73 sq.m. Ages 70+ = 75 mL/min/1.73 sq.m. Chronic Kidney Disease: Less than 60 mL/min/1.73 square meters End Stage Renal Disease: Less than 15 mL/min/1.73 square meters Performed By: #### C ALANA HORN, ANEU #### [facility] [address] [address] #### TROP, PBNP, BMP, GFR #### [address] [address] GFR 86 ml/min/1.73sqm Normal [facility] ([place]) Comment on above: Result Comment: GFR Population mean for , Non- Americans Ages 20-29 = 116 mL/min/1.73 sq.m. Ages 30-39 = 107 mL/min/1.73 sq.m. Ages 40-49 = 99 mL/min/1.73 sq.m. Ages 50-59 = 93 mL/min/1.73 sq.m. Ages 60-69 = 85 mL/min/1.73 sq.m. Ages 70+ = 75 mL/min/1.73 sq.m. Chronic Kidney Disease: Less than 60 mL/min/1.73 square meters End Stage Renal Disease: Less than 15 mL/min/1.73 square meters Performed By: #### C BC, ADIFF, ANEU #### [place] [address] #### TROP, PBNP, BMP, GFR #### [address] [address] .NEUABSon 08-23-2018 Neutrophils #/vol (Bld) 5.60 10 3/mcL Normal 2.85-6.16 [facility] ([place] Comment on above: Performed By: #### C BC, ADIFF, ANEU #### [place] [address] #### TROP, PBNP, BMP, GFR #### [place] [address] BMPon 08-23-2018 Calcium mass conc 9.0 mg/dL Normal 8.4-10.2 [facility] Comment on above: Performed By: #### C BC, ADIFF, ANEU #### [place] [address] #### TROP, PBNP, BMP, GFR #### [place] [address] Chloride molar conc 100 mmol/L Normal 98-107 [facility] ([place]) Comment on above: Performed By: #### C BC, ADIFF, ANEU #### [place] [address] #### TROP, PBNP, BMP, GFR #### [place] [address] CO2 molar conc 30 mmol/L Normal 23-31 [facility] Comment on above: Performed By: #### C BC, ADIFF, ANEU #### [place] [address] #### TROP, PBNP, BMP, GFR #### [place] [address] Creatinine mass conc 1.03 mg/dL Normal 0.70-1.30 [facility] ([place]) Comment on above: Performed By: #### C BC, ADIFF, ANEU #### [address] [address] #### TROP, PBNP, BMP, GFR #### [address] [address] Electrolyte Balance 8.0 mEq/L Normal [facility] ([place]) Comment on above: Performed By: #### C BC, ADIFF, ANEU #### [place] [address] #### TROP, PBNP, BMP, GFR #### [address] [address] Glucose mass conc 115 mg/dL High 83-110 [facility] Comment on above: Performed By: #### C BC, ADIFF, ANEU #### [place] [address] #### TROP, PBNP, BMP, GFR #### [place] [address] Potassium molar conc 4.3 mmol/L Normal 3.5-5.1 [facility] ([place]) Comment on above: Performed By: #### C BC, ADIFF, ANEU #### [place] [address] #### TROP, PBNP, BMP, GFR #### [address] [address] Sodium molar conc 138 mmol/L Normal 136-145 [facility] [place] Comment on above: Performed By: #### C BC, ADIFF, ANEU #### [address] [address] #### TROP, PBNP, BMP, GFR #### [address] [address] Urea nitrogen mass conc 15 mg/dL Normal 7-18 [facility] [place] Comment on above: Performed By: #### C BC, ADIFF, ANEU #### [place] [id number] #### TROP, PBNP, BMP, GFR #### [place] [address] Urea nitrogen/Creatinine mass ratio 15 ratio Normal 7-27 [facility] [place] Comment on above: Performed By: #### C BC, ADIFF, ANEU #### [address] [address] #### TROP, PBNP, BMP, GFR #### [place] [address] CBCon 08-23-2018 Erythrocyte distribution width Ratio (RBC) 16.3 % High 11.5-14.5 [facility] [place] Comment on above: Performed By: #### C BC, ADIFF, ANEU #### [place] [address] #### TROP, PBNP, BMP, GFR #### [place] [address] Hematocrit Volume Fraction (Bld) 36.5 % Low 42.0-52.0 [facility] [place] Comment on above: Performed By: #### C BC, ADIFF, ANEU #### [place] [address] #### TROP, PBNP, BMP, GFR #### [place] [address] Hemoglobin mass conc (Bld) 11.9 G/dL Low 14.0-18.0 [facility] [place] Comment on above: Performed By: #### C BC, ADIFF, ANEU #### [place] [address] #### TROP, PBNP, BMP, GFR #### [place] [address] MCH Entitic mass (RBC) 29.4 pg Normal 27.0-31.2 [facility] ([place] Comment on above: Performed By: #### C BC, ADIFF, ANEU #### [place] [address] #### TROP, PBNP, BMP, GFR #### [place] [address] MCHC mass conc (RBC) 32.7 G/dL Normal 31.8-35.4 [facility] ([place]) Comment on above: Performed By: #### C BC, ADIFF, ANEU #### [address] [address] #### TROP, PBNP, BMP, GFR #### [place] [address] MCV Entitic volume (RBC) 89.8 fL Normal 80.0-94.0 [facility] ([place] Comment on above: Performed By: #### C BC, ADIFF, ANEU #### [place] [address] #### TROP, PBNP, BMP, GFR #### [place] [address] Platelet mean volume Entitic volume (Bld) 8.3 fL Normal 7.4-10.4 [facility] ([place]) Comment on above: Performed By: #### C BC, ADIFF, ANEU #### [place] [address] #### TROP, PBNP, BMP, GFR #### [place] [address] Platelets #/vol (Bld) 202 10 3/mcL Normal 130-400 [facility] ([place] Comment on above: Performed By: #### C BC, ADIFF, ANEU #### [place] [address] #### TROP, PBNP, BMP, GFR #### [place] [address] RBC #/vol (Bld) 4.06 10 6/mcL Normal 4.04-6.13 [facility] ([place]) Comment on above: Performed By: #### C BC, ADIFF, ANEU #### [place] [address] #### TROP, PBNP, BMP, GFR #### [place] [address] WBC #/vol (Bld) 6.80 10 3/mcL Normal 4.60-10.80 [facility] ([place]) Comment on above: Performed By: #### C BC, ADIFF, ANEU #### [facility] [address] [place], [place] [address] #### TROP, PBNP, BMP, GFR #### [facility] [address] [place] [address] ANGIOGRAPHY CHEST W/CONTR [place] 08-23-2018 CT ANGIOGRAPHY CHEST W/CONTRAST ORIGINAL CT ANGIOGRAPHY CHEST W/CONTRAST with 3-D reconstruction CLINICAL STATEMENT: chest pain; suspect PE COMPARISON: None FINDINGS:The pulmonary arteries are adequately opacified. No filling defects are visualized. No axillary adenopathy is identified. There is mild bilateral gynecomastia. The heart size is mildly enlarged. No pericardial thickening or effusion is identified. Coronary artery calcification is seen. Calcified plaque is seen within the aorta which is normal in caliber. A moderate to large hiatal hernia is seen. There are multiple enlarged mediastinal and bilateral hilar lymph nodes. For example a subcarinal lymph node measures 1.8 cm in short axis. A RIGHT hilar lymph node measures 1.4 cm in short axis. The major airways are unremarkable. Limited images of the upper abdomen demonstrates reflux of contrast into the hepatic veins, consistent with RIGHT heart failure. No pleural effusion is identified. There is bronchiectasis within the lung bases area of scarring or atelectasis at the RIGHT lung. No suspicious pulmonary nodule or mass is identified. No suspicious osseous lesion is identified. IMPRESSION:No pulmonary embolism is identified. Mediastinal and bilateral hilar adenopathy. This could represent metastatic disease or a lymphoproliferative disorder. Follow-up recommended. This exam was performed according to our departmental dose optimization program, and includes the following measures where applicable: automated exposure control, adjustment of the mAs and/or kVp according to patient size and/or exam, and an iterative reconstruction algorithm. Interpreted By: Codi Chirinos MD Preliminary Report By: Codi Chirinos MD Electronically Signed By: Codi Chirinos MD Dictated Date: 08/23/2018 2:55:28 PM Prelim Date: 08/23/2018 2:55:28 PM Sign Date: 08/23/2018 3:02:43 PM Normal [facility] PBNPon 08-23-2018 Natriuretic peptide B mass conc (Bld) 1334 pg/mL High 0-125 [facility] Comment on above: Result Comment: NT-p roBNP results of less than 300 pg/mL effectively rules out acute congestive heart failure with 99% negative predictive value. Performed By: #### C BC, ADIFF, ANEU #### [place] [address] #### TROP, PBNP, BMP, GFR #### [place] [address] TROPon 08-23-2018 Troponin I.cardiac mass conc 0.172 ng/mL Critically abnormal 0.000-0.040 [facility] Comment on above: Result Comment: Trop onin I reference range: 0.00-0.040 ng/mL Negative and non-diagnostic. >0.040 ng/mL Consistent with cardiac damage, increased clinical risk and possibility of myocardial infarction. Serial measurements, a rise & fall in test results, clinical history, appropriate symptoms and/or ECG changes may help assess possibility of GA. *Other non-acute coronary syndrome conditions such as CHF, myocarditis, pulmonary emboli, sepsis and cardiac surgery could result in myocardial damage and increased troponin levels. Performed By: #### C BC, ADIFF, ANEU #### [place] [address] #### TROP, PBNP, BMP, GFR #### [place] [id number] XR CHEST 2 VIEWSon 8 XR CHEST 2 VIEWS ORIGINAL XR CHEST 2 VIEWS CLINICAL STATEMENT: Chest Pain, shortness of breath COMPARISON: 05/07/2016 FINDINGS:Heart is enlarged, similar to the prior exam. No vascular congestion or pneumothorax is identified. No focal consolidation or pleural effusion is seen. Degenerative changes are seen within the spine. IMPRESSION:No acute process identified. Interpreted By: Codi Chirinos MD Preliminary Report By: Codi Chirinos MD Electronically Signed By: Codi Chirinos MD Dictated Date: 08/23/2018 1:57:31 PM Prelim Date: 08/23/2018 1:57:31 PM Sign Date: 08/23/2018 1:58:43 PM Normal [facility] Vital Signs Date Time Vital Sign Value Performing Clinician Yasmine arango 01-08-2024 12:42-0400 Body temperature 97.3 [degF] [facility] 01-08-2024 12:42-0400 Diastolic blood pressure 94 mm[Hg] [facility] 01-08-2024 12:42-0400 Heart rate 94 /min [facility] 01-08-2024 12:42-0400 Respiratory rate 16 /min [facility] 01-08-2024 12:42-0400 SaO2% (BldA) [Mass fraction] 97 % [facility] 01-08-2024 12:42-0400 Systolic blood pressure 155 mm[Hg] [facility] 01-08-2024 11:10-0400 Body height 170.18 cm [facility] 01-08-2024 11:10-0400 Body mass index (BMI) [Ratio] 28.6 kg/m2 [facility] 01-08-2024 11:10-0400 Body weight 82.96 kg [facility] 03-30-2023 16:29-0400 Diastolic blood pressure 89 mm[Hg] [facility] 03-30-2023 16:29-0400 Heart rate 87 /min [facility] 03-30-2023 16:29-0400 Respiratory rate 14 /min [facility] 03-30-2023 16:29-0400 SaO2% (BldA) [Mass fraction] 95 % [facility] 03-30-2023 16:29-0400 Systolic blood pressure 149 mm[Hg] [facility] 03-30-2023 12:12-0400 Body height 175.26 cm [facility] 03-30-2023 12:12-0400 Body mass index (BMI) [Ratio] 31.1 kg/m2 [facility] 03-30-2023 12:12-0400 Body temperature 96.8 [degF] [facility] 03-30-2023 12:12-0400 Body weight 95.7 kg [facility] Hospital Encounters Encounter Date Encounter Type Care Provider Facility Start: 01-10-2024 Telephone encounter [facility] Provider [facility] Comment on above: External Referrals/r esources Start: 01-08-2024 ambulatory Carlo Underwood [facility] Start: 01-08-2024 End: 01-08-2024 Emergency department patient visit [facility] Facility:[facility] Start: 01-08-2024 Non-patient / Non-visit [facility] Start: 01-08-2024 End: 01-08-2024 Emergency department patient visit [facility] Work Phone: Start: 08-16-2023 End: 08-16-2023 Emergency department patient visit [facility] Facility:[facility] Start: 03-30-2023 ambulatory [facility] Facility:[facility] Start: 03-30-2023 End: 03-30-2023 Emergency department patient visit [facility] Facility:[facility] Start: 03-30-2023 Non-patient / Non-visit [facility] Start: 03-30-2023 End: 03-30-2023 Emergency department patient visit [facility] Start: 08-23-2018 End: 08-23-2018 Emergency department patient visit [facility] Facility:[facility] Procedures Date Procedure Procedure Detail Performing Clinician Start: 03-30-2023 CT of abdominal aort a with contrast [facility] Start: 10-30-1993 History of coronary artery bypass grafting S/P CABG x 5 [facility] Plan of Treatment Date Care Activity Detail Author Start: 06-11-2024 Influenza vaccination Influenza Vaccine (Season Ended) [facility] Start: 01-08-2024 Esophagogastroduodenoscopy EGD (Not Applicable) [facility] Start: 01-08-2024 [facility] Start: 10-11-2023 Advance Directive Discussion Advance Directive Discussion [facility] Start: 10-11-2023 Depression Assessment Depression Assessment [facility] Start: 06-11-2023 Covid-19 Vaccine ( season) Covid-19 Vaccine ( season) [facility] Start: 08-11-2016 Diabetes Screening Diabetes Screening [facility] Start: 2011 Pneumococcal Vaccine: 65+ (1 of 1 - PCV) Pneumococcal Vaccine: 65+ (1 of 1 - PCV) [facility] Start: 07-03-2008 Urine microalbumin profile DTaP,Tdap,Td Vaccine (2 - Tdap) [facility] Start: 2006 RSV Vaccine (1 - 1-dose 60+ series) RSV Vaccine (1 - 1-dose 60+ series) [facility] Start: 1996 Shingrix Vaccine (1 of 2) Shingrix Vaccine (1 of 2) [facility] Start: 1964 Hepatitis C screening Hepatitis C Screening [facility] Patient Education Arterial Occl[facility] Acute ED Peripheral Artery Disease (PAD) [facility] Work Phone: Patient referral [facility] Work Phone: Immunizations Immunization Date Immunization Notes Care Provider Nagi oshea 07-12-2018 Influenza virus vaccine [facility] 07-12-2018 influenza virus vacc ine, unspecified formulation [facility] Provider [facility] Payers Date Payer Category Payer Medicare [id number] 2023 Self-pay [id number] 2021 Private Health Insurance [facility] CC[employer] [id number] 2021-Present [phone] [address] [place] [address] PPO [id number] 2017 Medicare [employer]NA MEDICARE [employer] MEDICARE PPO [id number] 2017-Present [phone] [address] [address] [place] [address] PPO [id number] 2017 Unknown [id number] 1945 Unknown [id number] Unknown [id number] Unknown [id number] Unknown [id number] Unknown [id number] Unknown [id number] Social History Date Type Detail Facility Start: 03-30-2023 End: 01-08-2024 Tobacco smoking status NVIS Unknown if ever smoked [facility] Start: 02-07-2021 Cigarettes [facility] Start: 1945 Sex Assigned At Male [facility] Start: 04-28-2018 Tobacco smoking stat us NVIS Ex-smoker [facility] End: 11-06-1993 History of tobacco use Current smoker [facility] End: 11-06-1993 History of tobacco use Cigarette Smoker [facility] Start: 04-28-2018 End: 09-17-2020 Cigarettes smoked current (pack per day) - Reported 1 [facility] Start: 04-28-2018 Tobacco use and exposure Smokeless tobacco non-user [facility] Start: 08-29-2018 Alcohol intake Current drinke r of alcohol (finding) [facility] Start: 08-29-2018 End: 09-17-2020 Tobacco use panel [facility] National Score (1-10 0), lower number is lower risk Not on file [facility] Start: 04-28-2018 Alcohol Comment [facility] Start: 1945 Sex Assigned At Not on file [facility] Mental Status Date Assessment Result Facility 01-08-2024 Cognitive function Level Of Cons ciousness Awake;Alert;Appropriate;Follow s Commands [facility] Work Phone: Note 01-10-2024 Telephone Encounter - Felecia Graham MA - 01/10/2024 10:35 AM EDT Note Date & Type Note Facility 01-10-2024 Miscellaneous Notes Formattin g of this note might be different from the original. Received referral from [facility] Hiatal Hernia. Left voicemail for patient to call the office to schedule. Felecia Graham MA documented in this encounter [facility] Discharge summary 03-30-2023 Note Date & Type Note Facility 03-30-2023 Discharge summary Note Date/Time March 30, 2023 12:41pm [facility] Medical Records Department [address] [place] [address] Emergency Department Summary 03/30/23 MR#: [id number] Acct: [id number] Name: ALEJANDRO MOTT Rep #:[id number] : 1945 77 From: Mikael Jacques DO [place]CP: [facility] Status:REG ER Location: ED HPI History of Present Illness Chief Complaint: Lower Extremity Injury Narrative Narrative: 77-year-old male presenting with right leg weakness. He says at times it startsto ache. It is worse at night when he is laying down to sleep. When he walks if he walks a long distance it will start to ache as well. He states he has history of vascular stents in the past. [facility]. Patient is on Eliquis for A-fib history. Since they [facility] to call yesterday [facility] They told him to come to the ER to get checked for a blood clot. He is not describing a lot of pain. He does not have any swelling. He states he has had to use a walker. No direct trauma. 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 Chronic atrial fibrillation Diabetes mellitus, type II Encounter for monitoring sotalol therapy Former tobacco use Hyperlipidemia Hypertension Obstructive sleep apnea Peripheral vascular disease Right bundle branch block Home Medications acetaminophen 325 mg tablet 650 mg PO Q6H PRN Pain 08/23/18 [History Last Taken Unknown] albuterol sulfate 90 mcg/actuation aerosol inhaler 2 puff inhalation Q4H PRN PRNSob &/Or Wheezing 08/23/18 [History Last Taken Unknown] apixaban 5 mg tablet 5 mg PO BID blood thinner 08/23/18 [History Last Taken 08/23/18 08:00] aspirin 81 mg chewable tablet 81 mg PO DAILY@0800 health maintenance 08/23/18 [History Last Taken 08/23/18] atorvastatin 40 mg tablet 40 mg PO QHS cholesterol 08/23/18 [History Last Taken 08/23/18] bicalutamide 50 mg tablet 150 mg PO QHS hormone 08/23/18 [History Last Taken 08/22/18] cholecalciferol (vitamin D3) 25 mcg (1,000 unit) tablet 1,000 unit PO DAILY supplement 08/23/18 [History Last Taken 08/23/18] levothyroxine 112 mcg tablet 112 mcg PO DAILY thyroid 08/23/18 [History Last Taken 08/23/18] melatonin-pyridoxine HCl (vitamin B6) 3 mg-10 mg tablet 1 ea PO QHS PRN Sleep 08/23/18 [History Last Taken 08/22/18] omeprazole 20 mg capsule,delayed release 40 mg PO DAILY gerd 08/23/18 [History Last Taken 08/23/18] sotalol 80 mg tablet 40 mg PO BID heart 08/23/18 [History Last Taken 08/22/18] trospium 20 mg tablet 20 mg PO BID overactive bladder 08/23/18 [History Last Taken 08/23/18 08:00] isosorbide mononitrate 30 mg tablet,extended release 24 hr 30 mg PO DAILY #30 tabs 08/25/18 [Rx Last Taken Unknown] ascorbic acid (vitamin C) 250 mg tablet 250 mg PO .COMPLEX 04/17/19 [History Last Taken Unknown] budesonide-formoterol HFA 160 mcg-4.5 mcg/actuation aerosol inhaler 2 puff inhalation BID 04/17/19 [History Last Taken Unknown] calcium carbonate 650 mg calcium (1,625 mg) tablet 650 mg PO BID 04/17/19 [History Last Taken Unknown] capsaicin 0.025 % topical cream 1 applic topical TID 04/17/19 [History Last Taken Unknown] cetirizine 10 mg tablet 10 mg PO DAILY 04/17/19 [History Last Taken Unknown] ferrous sulfate 325 mg (65 mg iron) tablet 325 mg PO .COMPLEX 04/17/19 [History Last Taken Unknown] fluticasone propionate 50 mcg/actuation nasal spray,suspension 2 spray intranasal DAILY 04/17/19 [History Last Taken Unknown] ipratropium bromide 21 mcg (0.03 %) nasal spray 1 spray intranasal TID 04/17/19 [History Last Taken Unknown] nitroglycerin 0.4 mg sublingual tablet 0.4 mg sublingual Q5-15M 04/17/19 [History Last Taken Unknown] omega-3 fatty acids 1,000 mg capsule (Fish Oil Concentrate) 1,000 mg PO BID 04/17/19 [History Last Taken Unknown] phenazopyridine 200 mg tablet 200 mg PO TID 04/17/19 [History Last Taken Unknown] losartan 25 mg tablet 25 mg PO DAILY #30 tabs 04/18/19 [Rx Last Taken Unknown] Allergy/AdvReac Type Severity Reaction Status Date / Time water pills AdvReac gout Uncoded 03/30/23 12:14 Family History Mother , age 54 Myocardial infarction CAD (coronary artery disease) Scarlet fever Father , Age 70 CAD (coronary artery disease) Myocardial infarction Sudden cardiac ETOH abuse Tobacco abuse Surgical History History of carotid endarterectomy History of cholecystectomy History of left heart catheterization (05/11/13) Hx of CABG 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 Social History Smoking Status: Former smoker ROS ROS ED Constitutional Constitutional ED: Denies chills or fever(s) Eyes Eyes: Denies change in vision or diplopia ENT ENT ED: Denies ear pain, rhinorrhea or sore throat Cardiovascular Cardiovascular: Denies chest pain or palpitations Respiratory/Chest Respiratory/Chest: Denies cough or dyspnea Gastrointestinal Gastrointestinal: Denies abdominal pain, constipation, nausea or vomiting Genitourinary Genitourinary ED: Denies dysuria or hematuria Musculoskeletal Musculoskeletal: Reports other Details: Right leg pain Integumentary Denies abscess or Abrasions Neurologic Neurologic: Denies headache(s) Psychiatric Psychiatric: Denies anxiety or depression Endocrine Endocrinology: Denies polydipsia or polyphagia EXAM Physical Exam Const Vital Signs: 03/30/23 12:12 Temperature 96.8 F L Temperature Source Temporal Pulse Rate 95 Respiratory Rate 14 Blood Pressure 149/93 H Blood Pressure Mean 111 Pulse Ox 97 Oxygen Delivery Method Room Air Positive well nourished General Appearance ED: NAD HEENT Reports moist mucous membranes normocephalic Chest Wall inspection of chest normal Resp normal respiratory effort and no retractions Cardio regular rate and regular rhythm GI non-tender Extremity normal to inspection and full ROM Extremity Narrative: No tenderness. Compartments soft. No cords palpated. General Extremety ED: Negative for edema General Extremity: Negative for edema Neuro oriented x3 and CN's II-XII intact bilaterally Sensorium / Orientation: alert Psych mental status grossly normal Skin no wounds MDM MDM MDM Narrative Medical decision making narrative: Patient presenting with right leg weakness and pain. The pain is mild. He has a history of peripheral vascular disease and has had stents in the past. He hasbeen unable to get a hold of his vascular surgeon. [facility] Patient on Eliquis for history of A-fib. We will obtain a CBC and BMP to assess white blood cell count, hemoglobin, platelets, renal function, electrolytes. We will obtain a CTA of the abdomen with runoffs to assess for peripheral ischemia. Patient does still want a DVT study of the right leg because his [facility] doc requested this. This will be performed. I did watch him ambulate and he is ambulatory and steady with a cane. He is having trouble walking with the right leg though. This has been ongoing for about 3 weeks now. CBC shows a normal white blood cell count of 7.8. Hemoglobin stable 13.6. Platelets normal. Renal function electrolytes within normal limits. DVT study was negative. CTA with runoffs is positive for occlusions in the right superficial femoral, right popliteal, posterior tibial which involves the stentsas well. The left lower extremity shows severe superficial femoral stenosis andcomplete occlusion of the middle to distal one third of the stent of the left superficial femoral with collaterals. I discussed this with Dr. Matthews who recommended that the patient be discharged to follow-up with [facility]. He states he is happy to see the patient in follow-up if he wants to see him. Jorge give Dr. Matthews's information. Impression: 1. Peripheral vascular disease Lab Data Attestation: I reviewed the patient's lab results. Labs: Laboratory Results - last 24 hr 03/30/23 03/30/23 13:15 13:15 WBC 7.8 RBC 4.25 L Hgb 13.6 Hct 40.7 MCV 95.8 H MCH 32.0 MCHC 33.4 RDW Std Deviation 45.7 H RDW Coeff of John 12.9 Plt Count 200 MPV 10.6 Immature Gran % (Auto) 0.600 Neut % (Auto) 70.0 Lymph % (Auto) 14.6 L Dickinson % (Auto) 9.8 Eos % (Auto) 4.4 Baso % (Auto) 0.6 Absolute Neuts (auto) 5.4 Absolute Lymphs (auto) 1.13 Nucleated RBC % 0 Sodium 136 Potassium 4.3 Chloride 103 Carbon Dioxide 29.0 Anion Gap 4 L BUN 18 Creatinine 0.86 Estim Creat Clear Calc 73.07 Est GFR (MDRD) Af Amer 112 Est GFR (MDRD) Non-Af 92 BUN/Creatinine Ratio 21.0 H Glucose 126 H Calcium 9.2 Radiography Diagnostic Testing: Clinical Impression(s) from Imaging Studies Abdomen/Pelvis CTA 03/30/23 12:34 IMPRESSION: Distal abdominal aorta: 3.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 Right superficial femoral: Proximal and distal one third vascular stents with complete occlusion within the stent and in the middle one third region of the right superficial femoral artery. 2. Right popliteal artery: A vascular stent is present which is completely occluded with thrombus. 3. Complete occlusion of the right posterior tibial artery. Left lower extremity: Severe stenosis to complete occlusion of the left superficial femoral artery 1. Left superficial femoral: Severe stenosis in the proximal one third aspect of the left superficial femoral artery. A vascular stent is present in the distal one third aspect of the artery. Complete occlusion of the middle to distal one third aspect of the left superficial femoral artery. Collateral vessels/reconstitution at the junction of the superficial femoral artery and popliteal artery. 2. Severe atherosclerotic stenosis of the vessels of the bilateral lower extremity/calves. Electronically Signed: Rohit Chavez MD at 15:43 EDT Reading Location ID and State: [facility] / [place] , Service support , Venous Doppler Study 03/30/23 12:34 Interpretation Summary Deep veins of the right lower extremity are patent and compressible segmentally.There is no evidence of right lower extremity deep vein thrombosis. The right great saphenous vein appears patent and compressible segmentally. Inidental finding of right SFA atherosclerosis, occlusion. Ordering Physician: Mikael Jacques Referring Physician: SARAVANAN Performed By: Jeremiah Mann RVT Discharge Plan Triage Chief Complaint: Lower Extremity Injury ED Provider: Mikael Jacques Dx/Rx/DC Orders Instructions: Arterial Occlusion Acute, ED Peripheral Artery Disease (PAD) Prescriptions: No Action ascorbic acid (vitamin C) 250 mg tablet 250 mg PO .COMPLEX Rx Instructions: 250 mg PO TID on Mon, Weds and Fri only; budesonide-formoterol 160-4.5 mcg/actuation HFA aerosol inhaler 2 puff INHALATION BID calcium carbonate 650 mg calcium (1,625 mg) tablet 650 mg PO BID capsaicin 0.025 % cream 1 applic TOPICAL TID cetirizine 10 mg tablet 10 mg PO DAILY ferrous sulfate 325 mg (65 mg iron) tablet 325 mg PO .COMPLEX Rx Instructions: 325 mg PO 3 tablets by mouth every Mon, Weds, and Fri after a meal; omega-3 fatty acids [Fish Oil Concentrate] 1,000 mg capsule 1,000 mg PO BID fluticasone propionate 50 mcg/actuation spray,suspension 2 spray INTRANASAL DAILY ipratropium bromide 0.03 % spray,non-aerosol 1 spray INTRANASAL TID nitroglycerin 0.4 mg tablet, sublingual 0.4 mg SUBLINGUAL Q5-15M phenazopyridine 200 mg tablet 200 mg PO TID losartan 25 mg tablet 25 mg PO DAILY Qty: 30 11RF atorvastatin 40 MG tablet 40 mg PO QHS bicalutamide 50 MG tablet 150 mg PO QHS sotalol 80 MG tablet 40 mg PO BID omeprazole 20 MG capsule 40 mg PO DAILY aspirin 81 MG tablet,chewable 81 mg PO DAILY@0800 albuterol sulfate 1 INHALER inhaler 2 puff inhalation Q4H PRN PRN (Reason: Sob &/Or Wheezing) levothyroxine 112 MCG tablet 112 mcg PO DAILY trospium 20 MG tablet 20 mg PO BID cholecalciferol (vitamin D3) 1,000 UNIT tablet 1,000 unit PO DAILY apixaban 5 MG tablet 5 mg PO BID acetaminophen 325 MG tablet 650 mg PO Q6H PRN (Reason: Pain) melatonin-pyridoxine HCl (B6) 1 EACH tablet 1 ea PO QHS PRN (Reason: Sleep) isosorbide mononitrate 30 MG tablet 30 mg PO DAILY Qty: 30 0RF [facility] [Primary Care Provider] - Disposition Disposition: Home, Self Care What to do if you have Problems For any increased pain, shortness of breath, bleeding, nausea or vomiting, chestpain, or any unexpected problems, contact your Primary Care Provider. Call [facility] ([phone]) or report to the closest Emergency Room. Call 911 if necessary. 03/30/23 1613 <Electronically signed by Mikael Jacques DO> Cosigner Signature (if applicable): CC: [place] [facility] ~ Signed [facility] Work Phone: Discharge summary Note Date & Type Note Facility Discharge summary Note Date/Time January 08, 2024 11:53am [facility] Medical Records Department [address] [place] [id number] Emergency Department Summary 01/08/24 MR#: [id number] Acct: [id number] Name: ALEJANDRO MOTT Rep #:[id number] : 1945 78 From: Kyler Sultana MD [place]CP: [facility] Status:REG ER Location: ED HPI History of Present Illness Chief Complaint: Foreign Body Informant: patient Narrative Narrative: Patient having just under 24 hours worth of what he thinks may be an esophageal foreign body/obstruction. He states he was eating chicken when it occurred. [place] he is asymptomatic until he tries to eat or drink something, then he getspain at his epigastrium, right before dumps into my stomach and followed by profuse vomiting everything that he tries to eat or drink. He has not been ableto keep anything down since then. No hematemesis. No melena. He states that he has had this in the past, he had to have an EGD twice to clear the blockage and the last time was about [address] Pate. 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 Chronic atrial fibrillation Diabetes mellitus, type II Encounter for monitoring sotalol therapy Former tobacco use Hyperlipidemia Hypertension Obstructive sleep apnea Peripheral vascular disease Right bundle branch block Home Medications acetaminophen 325 mg tablet 650 mg PO Q6H PRN Pain 08/23/18 [History Last Taken Unknown] albuterol sulfate 90 mcg/actuation aerosol inhaler 2 puff inhalation Q4H PRN PRNSob &/Or Wheezing 08/23/18 [History Last Taken Unknown] apixaban 5 mg tablet 5 mg PO BID blood thinner 08/23/18 [History Last Taken 08/23/18 08:00] aspirin 81 mg chewable tablet 81 mg PO DAILY@0800 health maintenance 08/23/18 [History Last Taken 08/23/18] atorvastatin 40 mg tablet 40 mg PO QHS cholesterol 08/23/18 [History Last Taken 08/23/18] bicalutamide 50 mg tablet 150 mg PO QHS hormone 08/23/18 [History Last Taken 08/22/18] cholecalciferol (vitamin D3) 25 mcg (1,000 unit) tablet 1,000 unit PO DAILY supplement 08/23/18 [History Last Taken 08/23/18] levothyroxine 112 mcg tablet 112 mcg PO DAILY thyroid 08/23/18 [History Last Taken 08/23/18] melatonin-pyridoxine HCl (vitamin B6) 3 mg-10 mg tablet 1 ea PO QHS PRN Sleep 08/23/18 [History Last Taken 08/22/18] omeprazole 20 mg capsule,delayed release 40 mg PO DAILY gerd 08/23/18 [History Last Taken 08/23/18] sotalol 80 mg tablet 40 mg PO BID heart 11/13/18 [History Last Taken 08/22/18] trospium 20 mg tablet 20 mg PO BID overactive bladder 08/23/18 [History Last Taken 08/23/18 08:00] isosorbide mononitrate 30 mg tablet,extended release 24 hr 30 mg PO DAILY #30 tabs 08/25/18 [Rx Last Taken Unknown] ascorbic acid (vitamin C) 250 mg tablet 250 mg PO .COMPLEX 04/17/19 [History Last Taken Unknown] budesonide-formoterol HFA 160 mcg-4.5 mcg/actuation aerosol inhaler 2 puff inhalation BID 04/17/19 [History Last Taken Unknown] calcium carbonate 650 mg calcium (1,625 mg) tablet 650 mg PO BID 04/17/19 [History Last Taken Unknown] capsaicin 0.025 % topical cream 1 applic topical TID 04/17/19 [History Last Taken Unknown] cetirizine 10 mg tablet 10 mg PO DAILY 04/17/19 [History Last Taken Unknown] ferrous sulfate 325 mg (65 mg iron) tablet 325 mg PO .COMPLEX 04/17/19 [History Last Taken Unknown] fluticasone propionate 50 mcg/actuation nasal spray,suspension 2 spray intranasal DAILY 04/17/19 [History Last Taken Unknown] ipratropium bromide 21 mcg (0.03 %) nasal spray 1 spray intranasal TID 04/17/19 [History Last Taken Unknown] nitroglycerin 0.4 mg sublingual tablet 0.4 mg sublingual Q5-15M 04/17/19 [History Last Taken Unknown] omega-3 fatty acids 1,000 mg capsule (Fish Oil Concentrate) 1,000 mg PO BID 04/17/19 [History Last Taken Unknown] phenazopyridine 200 mg tablet 200 mg PO TID 04/17/19 [History Last Taken Unknown] losartan 25 mg tablet 25 mg PO DAILY #30 tabs 04/18/19 [Rx Last Taken Unknown] Allergy/AdvReac Type Severity Reaction Status Date / Time No Known Allergies Allergy Verified 01/08/24 11:12 Family History Mother , age 54 Myocardial infarction CAD (coronary artery disease) Scarlet fever Father , Age 70 CAD (coronary artery disease) Myocardial infarction Sudden cardiac ETOH abuse Tobacco abuse Surgical History History of carotid endarterectomy History of cholecystectomy History of left heart catheterization (05/11/13) Hx of CABG 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 Social History Smoking Status: Former smoker ROS ROS ED Constitutional Constitutional ED: Denies chills or fever(s) Eyes Eyes: Denies change in vision or diplopia ENT ENT ED: Denies rhinorrhea or sore throat Cardiovascular Cardiovascular: Denies chest pain or palpitations Respiratory/Chest Respiratory/Chest: Denies cough or dyspnea Gastrointestinal Gastrointestinal: Reports as per HPI, abdominal pain and vomiting; Denies diarrhea or nausea Genitourinary Genitourinary ED: Denies dysuria or hematuria Musculoskeletal Musculoskeletal: Denies back pain or neck pain Integumentary Denies abscess or rash Neurologic Neurologic: Denies headache(s), paresthesias or weakness Psychiatric Psychiatric: Denies anxiety or suicidal thoughts EXAM Physical Exam Const Vital Signs: 01/08/24 11:10 01/08/24 11:18 01/08/24 12:11 Temperature 97.7 F L Temperature Source Temporal Pulse Rate 103 H 93 Respiratory Rate 18 12 Respiratory Effort Normal Respiratory Pattern Normal Blood Pressure 152/99 H 155/94 H Blood Pressure Mean 116 114 Pulse Ox 99 99 Oxygen Delivery Method Room Air Room Air Positive well nourished and well developed General Appearance ED: well developed and NAD HEENT Reports moist mucous membranes normocephalic and atraumatic Eyes PERRL and EOMs intact bilaterally Neck full ROM and supple Resp normal respiratory effort and clear to auscultation bilaterally Cardio regular rate, regular rhythm and no murmurs GI non-tender and non-distended Auscultation: normoactive bowel sounds Palpation: soft Back/Spine no CVA tenderness General Back: other FROM Extremity normal to inspection General Extremety ED: Negative for edema, pulses abnormal or tenderness General Extremity: Negative for edema or pulses abnormal Neuro oriented x3, CN's II-XII intact bilaterally and no sensory deficits noted Sensorium / Orientation: awake and alert Motor Exam: strength 5/5 throughout Skin no rashes or lesions noted and no wounds MDM MDM MDM Narrative Medical decision making narrative: High suspicion of esophageal foreign body. Patient is anticoagulated on apixaban but he has not taken it for over 24 hours given the symptoms. He understands risk of bleeding. GI is not available today Wednesday, so discussed with surgery Dr. Cristina who will take the patient to endoscopy. Discharged from ER to endoscopy. Discharge Plan Triage Chief Complaint: Foreign Body ED Provider: Kyler Sultana Dx/Rx/DC Orders Clinical Impression: Impacted esophageal foreign body Prescriptions: No Action ascorbic acid (vitamin C) 250 mg tablet 250 mg PO .COMPLEX Rx Instructions: 250 mg PO TID on Mon, Weds and Fri only; budesonide-formoterol 160-4.5 mcg/actuation HFA aerosol inhaler 2 puff INHALATION BID calcium carbonate 650 mg calcium (1,625 mg) tablet 650 mg PO BID capsaicin 0.025 % cream 1 applic TOPICAL TID cetirizine 10 mg tablet 10 mg PO DAILY ferrous sulfate 325 mg (65 mg iron) tablet 325 mg PO .COMPLEX Rx Instructions: 325 mg PO 3 tablets by mouth every Mon, Weds, and Fri after a meal; omega-3 fatty acids [Fish Oil Concentrate] 1,000 mg capsule 1,000 mg PO BID fluticasone propionate 50 mcg/actuation spray,suspension 2 spray INTRANASAL DAILY ipratropium bromide 0.03 % spray,non-aerosol 1 spray INTRANASAL TID nitroglycerin 0.4 mg tablet, sublingual 0.4 mg SUBLINGUAL Q5-15M phenazopyridine 200 mg tablet 200 mg PO TID losartan 25 mg tablet 25 mg PO DAILY Qty: 30 11RF atorvastatin 40 MG tablet 40 mg PO QHS bicalutamide 50 MG tablet 150 mg PO QHS sotalol 80 MG tablet 40 mg PO BID omeprazole 20 MG capsule 40 mg PO DAILY aspirin 81 MG tablet,chewable 81 mg PO DAILY@0800 albuterol sulfate 1 INHALER inhaler 2 puff inhalation Q4H PRN PRN (Reason: Sob &/Or Wheezing) levothyroxine 112 MCG tablet 112 mcg PO DAILY trospium 20 MG tablet 20 mg PO BID cholecalciferol (vitamin D3) 1,000 UNIT tablet 1,000 unit PO DAILY apixaban 5 MG tablet 5 mg PO BID acetaminophen 325 MG tablet 650 mg PO Q6H PRN (Reason: Pain) melatonin-pyridoxine HCl (B6) 1 EACH tablet 1 ea PO QHS PRN (Reason: Sleep) isosorbide mononitrate 30 MG tablet 30 mg PO DAILY Qty: 30 0RF [facility] [facility] [[facility] Provider] - Disposition Disposition: Home, Self Care What to do if you have Problems For any increased pain, shortness of breath, bleeding, nausea or vomiting, chestpain, or any unexpected problems, contact your Primary Care Provider. Call [facility] ([phone]) or report to the closest Emergency Room. Call 911 if necessary. 01/08/24 1226 <Electronically signed by Kyler Sultana MD> Cosigner Signature (if applicable): CC: [facility] ~ Signed [facility] Work Phone: Evaluation note Note Date & Type Note Facility Evaluation note No assessment information availa ble [facility] Work Phone: History and physical note Note Date & Type Note Facility History and physical note Note Date/Time January 08, 2024 12:34pm [facility] Medical Records Department [address] [place] [address] H&P Exam - Surgical 01/08/24 1230 MR#: [id number] Acct: [id number] Name: ALEJANDRO MOTT Rep #:[id number] : 1945 78 From: Carlo fulton MD PCP: [facility] Status:REG ER Location: ED HPI - General HPI Narrative ALEJANDRO MOTT, is a 78 M who presents with food impaction. Patient reports he was eating chicken yesterday around lunchtime and this felt like it got stuck inhis distal esophagus. He said since then he has been vomiting and retching whenthe saliva builds up. He is still not able to eat or drink anything. He reports he is on Eliquis. He is also on a PPI chronically. He reports he has had food impactions in the past. The last time this happened was 10 years ago. 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 Chronic atrial fibrillation Diabetes mellitus, type II Encounter for monitoring sotalol therapy Former tobacco use Hyperlipidemia Hypertension Obstructive sleep apnea Peripheral vascular disease Right bundle branch block Home Medications acetaminophen 325 mg tablet 650 mg PO Q6H PRN Pain 08/23/18 [History Last Taken Unknown] albuterol sulfate 90 mcg/actuation aerosol inhaler 2 puff inhalation Q4H PRN PRNSob &/Or Wheezing 08/23/18 [History Last Taken Unknown] apixaban 5 mg tablet 5 mg PO BID blood thinner 08/23/18 [History Last Taken 08/23/18 08:00] aspirin 81 mg chewable tablet 81 mg PO DAILY@0800 health maintenance 08/23/18 [History Last Taken 08/23/18] atorvastatin 40 mg tablet 40 mg PO QHS cholesterol 08/23/18 [History Last Taken 08/23/18] bicalutamide 50 mg tablet 150 mg PO QHS hormone 08/23/18 [History Last Taken 08/22/18] cholecalciferol (vitamin D3) 25 mcg (1,000 unit) tablet 1,000 unit PO DAILY supplement 08/23/18 [History Last Taken 08/23/18] levothyroxine 112 mcg tablet 112 mcg PO DAILY thyroid 08/23/18 [History Last Taken 08/23/18] melatonin-pyridoxine HCl (vitamin B6) 3 mg-10 mg tablet 1 ea PO QHS PRN Sleep 08/23/18 [History Last Taken 08/22/18] omeprazole 20 mg capsule,delayed release 40 mg PO DAILY gerd 08/23/18 [History Last Taken 08/23/18] sotalol 80 mg tablet 40 mg PO BID heart 08/23/18 [History Last Taken 08/22/18] trospium 20 mg tablet 20 mg PO BID overactive bladder 08/23/18 [History Last Taken 08/23/18 08:00] isosorbide mononitrate 30 mg tablet,extended release 24 hr 30 mg PO DAILY #30 tabs 08/25/18 [Rx Last Taken Unknown] ascorbic acid (vitamin C) 250 mg tablet 250 mg PO .COMPLEX 04/17/19 [History Last Taken Unknown] budesonide-formoterol HFA 160 mcg-4.5 mcg/actuation aerosol inhaler 2 puff inhalation BID 04/17/19 [History Last Taken Unknown] calcium carbonate 650 mg calcium (1,625 mg) tablet 650 mg PO BID 04/17/19 [History Last Taken Unknown] capsaicin 0.025 % topical cream 1 applic topical TID 04/17/19 [History Last Taken Unknown] cetirizine 10 mg tablet 10 mg PO DAILY 04/17/19 [History Last Taken Unknown] ferrous sulfate 325 mg (65 mg iron) tablet 325 mg PO .COMPLEX 04/17/19 [History Last Taken Unknown] fluticasone propionate 50 mcg/actuation nasal spray,suspension 2 spray intranasal DAILY 04/17/19 [History Last Taken Unknown] ipratropium bromide 21 mcg (0.03 %) nasal spray 1 spray intranasal TID 04/17/19 [History Last Taken Unknown] nitroglycerin 0.4 mg sublingual tablet 0.4 mg sublingual Q5-15M 04/17/19 [History Last Taken Unknown] omega-3 fatty acids 1,000 mg capsule (Fish Oil Concentrate) 1,000 mg PO BID 04/17/19 [History Last Taken Unknown] phenazopyridine 200 mg tablet 200 mg PO TID 04/17/19 [History Last Taken Unknown] losartan 25 mg tablet 25 mg PO DAILY #30 tabs 04/18/19 [Rx Last Taken Unknown] Allergy/AdvReac Type Severity Reaction Status Date / Time No Known Allergies Allergy Verified 01/08/24 11:12 Family History Mother , age 54 Myocardial infarction CAD (coronary artery disease) Scarlet fever Father , Age 70 CAD (coronary artery disease) Myocardial infarction Sudden cardiac ETOH abuse Tobacco abuse Surgical History History of carotid endarterectomy History of cholecystectomy History of left heart catheterization (05/11/13) Hx of CABG 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 Social History Smoking Status: Former smoker ROS Constitutional Constitutional: Denies anorexia, chills or fatigue Eyes Eyes: Denies blurry vision ENT HEENT: Denies abnormal hearing Cardiovascular Cardiovascular: Denies chest pain Respiratory/Chest Respiratory/Chest: Denies cough or dyspnea Gastrointestinal Gastrointestinal: Reports dysphagia and vomiting; Denies abdominal pain Genitourinary Genitourinary: Denies change in urinary stream or difficulty urinating Musculoskeletal Musculoskeletal: Denies abnormal gait Neurologic Neurologic: Denies dizziness Psychiatric Psychiatric: Denies anxiety Endocrine Endocrinology: Denies heat intolerance Vital Signs Vital Signs Vital Signs: 01/08/24 11:10 01/08/24 11:18 01/08/24 12:11 Temperature 97.7 F L Temperature Source Temporal Pulse Rate 103 H 93 Respiratory Rate 18 12 Respiratory Effort Normal Respiratory Pattern Normal Blood Pressure 152/99 H 155/94 H Blood Pressure Mean 116 114 Pulse Ox 99 99 Oxygen Delivery Method Room Air Room Air Weight Weight: 182 lb 14.4 oz Body Mass Index (BMI) 28.6 Physical Exam Const oriented x3 and no apparent distress Resp normal respiratory effort GI soft to palpation and non-tender Extremity normal to inspection Assessment & Plan Assessment/Plan (1) Impacted esophageal foreign body: QUALIFIERS: Encounter type: initial encounter Qualified Code(s): T18.108A - Unspecified foreign body in esophagus causing other injury, initial encounter PLAN: The patient seems to have a chicken bolus impacted in the distal esophagus. I discussed performing EGD with foreign body removal in the endoscopy suite downstairs. I discussed the procedure in detail with him as well as the risks including but not limited to bleeding, infection, perforation,aspiration. I also explained the increased risk of bleeding since he is on blood thinners. Patient understands all the risks and is willing to proceed. Ialso informed him that I would like to see him back in 2 weeks and I will schedule him for elective EGD with possible biopsies or dilation. Carlo Cristina MD Pager: [facility] [address] [place] [address], [address] [place] [address] Office: 01/08/24 123 <Electronically signed by Carlo Cristina MD> Cosigner Signature (if applicable): CC: Dr. Carlo Cristina MD; [facility]~ Signed [facility] Work Phone: Summary Purpose Family History No Family History Records Found Relationship Condition Age at Onset Recorded Date/T li mother Myocardial infarction Unknown Coronary artery disease Unknown Scarlet fever Unknown father Coronary artery disease Unknown Myocardial infarction Unknown Sudden cardiac Unknown Alcohol abuse Unknown Tobacco abuse Unknown Advance Directives No Advanced Directives Records Found Advance Directive Response Recorded Date/ Time Living Will No March 30, 2023 12:31pm Power of Silk Screen Painter No March 30 12:31pm Advance Directive Response Recorded Date/ Time Living Will No January 08, 2024 11:18am Power of Silk Screen Painter No January 07 11:18am Chief Complaint and Reason for Visit Chief Complaint LEG PAIN Chief Complaint FB THROAT FB THROAT Additional Source Comments (unrecognized sect ion and content) No Status Records FoundNo Status Records FoundNo Status Records FoundNo Status Records Found INFORMATION SOURCE (unrecogn ized section and content) DATE CREATED AUTHOR 11/05/2018 [facility] ([place]) DATE CREATED AUTHOR AUTHOR'S ORGANIZ ATION 01/10/2024 [facility] DATE CREATED AUTHOR AUTHOR'S ORGANIZ ATION 01/13/2024 [facility] DATE CREATED AUTHOR AUTHOR'S ORGANIZ ATION 01/19/2025 [facility] Care Teams (unrecognized sec tion and content) Team Status: Active Member Role Status Dates Dr. Eric Louise MD Family Provider Active [facility] Primary Care Provider Active Team Status: Active Member Role Status Dates [facility] Primary Care Provider Active Dr. Arnie Matthews MD Attending Provider Active Team Status: Inactive Member Role Status Dates [facility] Primary Care Provider Active Dr. Mikael Jacques DO Referring Provider, Emergency Provider Active Team Status: Active Member Role Status Dates [facility] Primary Care Provider Active Dr. Kyler Sultana MD Emergency Provider Active Dr. Carlo Cristina MD Attending Provider Active Team Status: Inactive Member Role Status Dates [facility] Primary Care Provider Active Dr. Kyler Sultana MD Emergency Provider Active [employer] Relationship Specialty Start Date End Date Shana Becerra (Pa) [address] [place] [address] PCP - General Family Medicine 04/22/18 Prasanna Marie MD [address] [place] [address] Physician Radiation Oncology 04/22/18 Goals (unrecognized section and content) Goals may be documented in a n alternate sectionGoals may be documented in an alternate section Source Comments (unrecognize d section and content) In the event this informatio n is protected by the Federal Confidentiality of Alcohol and Drug Abuse Patient Records regulations: The Federal rules restrict any use of the information to criminally investigate or prosecute any alcohol or drug abuse patient.[facility] Reason for Visit (unrecogniz ed section and content) Reason Comments External Referrals/resources FOR RECORDS PERTAINING TO PATIENTS WHO ARE OR HAVE BEEN ENROLLED IN A CHEMICAL DEPENDENCY/SUBSTANCEABUSE PROGRAM, SOME INFORMATION MAY BE OMITTED. This clinical summary was aggregated from multiple sources. Caution should be exercised in using it in the provision of clinical care. This summary normalizes information from multiple sources, and as a consequence, information in this document may materially change the coding, format and clinical context of patient data. In addition, data may be omitted in some cases. CLINICAL DECISIONS SHOULD BE BASED ON THE PRIMARY CLINICAL RECORDS. [employer] [facility]. provides no warranty or guarantee of the accuracy or completeness of information in this document.
[2025-03-18 21:56] VITALS: O2SAT 100
--- NOTE | 2025-03-18 22:00 | RAD_ITS ---
PROCEDURE: CHEST PA AND LATERAL 03/18/2025 REASON FOR EXAM: SOB TECHNIQUE: Frontal and lateral views of the chest. COMPARISON: Chest radiograph 08/24/2018. FINDINGS: Hardware: Prior median sternotomy and CABG. Heart: The heart size is normal. Mediastinum: The mediastinal contour is stable. Lungs: Low lung volumes. Bibasilar atelectasis/scarring. No focal consolidation, pleural effusion or pneumothorax. Bones: Degenerative changes are identified within the thoracic spine. RAD/Chest PA and Lateral IMPRESSION: NO ACUTE FINDINGS. Reading Location: [id number]
[2025-03-18 22:21] VITALS: BP 139/67; PULSE 80; RESP 18; TEMP 36.7; O2SAT 100
[2025-03-18 22:37] LABS: Anion Gap 16 (5-15); BUN 32 mg/dL (4-19); BUN/Creat Ratio 21.4 RATIO (10-20); Calcium,Total 9.2 mg/dL (7.6-11.0); Carbon Dioxide 18.6 mmol/L (21.0-32.0); Chloride 103 mmol/L (98-108); Creatinine, Serum 1.48 mg/dL (0.70-1.20); EST Glomerular Filtration Rate 48 (>60); Glucose 95 mg/dL (70-99); Potassium 4.3 mmol/L (3.3-5.1); Sodium Level 137 mmol/L (133-145); Troponin T High Sensitivity 37 ng/L (<=22)
[2025-03-18 23:00] VITALS: BP 133/67; PULSE 76; RESP 20; TEMP 36.8; O2SAT 100
[2025-03-19] VITALS (11 sets, daily range): BP systolic 77–146; BP diastolic 51–94; PULSE 73–106; RESP 13–20; TEMP 36.9–37.3; O2SAT 95–100
[2025-03-19 00:26] LABS: Troponin T High Sens 2 HR 30 ng/L (<=22)
--- NOTE | 2025-03-19 00:47 | CT_ITS ---
PROCEDURE: ABDOMEN/PELVIS W IV CONT ONLY 03/19/2025 REASON FOR EXAM: DISTENSION, GI BLEEDING, RECENT FALL TECHNIQUE: Abdomen and pelvis CT with intravenous contrast. Coronal and Sagittal reconstruction series were provided. PATIENT PREPARATION: Per protocol ORAL CONTRAST TYPE: None. AMOUNT: mL CONTRAST: Isovue-350 VOLUME: 100 mL One or more dose reduction techniques were used (e.g., Automated exposure control, adjustment of the mA and/or kV according to patient size, use of iterative reconstruction technique. RADIATION DOSE SUMMARY: CTDlvol: 18.97 mGy DLP: 1047 mGycm COMPARISON: None. FINDINGS: Moderate amount of fecal residue in the large bowel suggestive of constipation. Partial small bowel obstruction. Transition zone in the right lower quadrant without evidence of bowel perforation or pneumatosis intestinalis. 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 Minimal right pleural effusion. Bilateral basilar atelectatic pulmonary changes. Moderate sliding hiatal hernia. Diffuse thickening of the stomach suggestive of gastritis. Prior cholecystectomy. Percutaneous gastrostomy tube is in good position with its tip at the level of the gastric body. Gastroparesis/gastritis. Mild fullness of the left collecting system, probably reflux. Percutaneous gastrostomy tube is in good position with its tip at the level of the gastric body. Scattered pancreatic cysts are noted with the largest measuring 1.2 cm. Findings are probably chronic. Normal liver. Normal extrahepatic biliary system. Normal spleen. Normal bilateral adrenal glands. Normal size of the right kidney. There is no right renal mass. There are no right renal calculi. There is no right hydronephrosis. Normal visualized right ureter. Normal size of the left kidney. There is no left renal mass. There are no left renal calculi. There is no demonstrated peritoneal fluid. Calcified atheromatous plaques of the tortuous ectatic abdominal aorta. Normal inferior vena cava. Normal retroperitoneum. Normal urinary bladder. There is no pelvic mass lesion or lymphadenopathy. There is no pelvic fluid. Diffuse spondylosis. Osteopenia. Occluded proximal aspect of the right superficial femoral artery, chronic finding. CT/Abdomen/Pelvis W IV Cont ONLY IMPRESSION: Moderate amount of fecal residue in the large bowel suggestive of constipation. Partial small bowel obstruction. Transition zone in the right lower quadrant without evidence of bowel perforati on or pneumatosis intestinalis. 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 2 x 3.7 cm, benign chronic finding. Minimal right pleural effusion. Bilateral basilar atelectatic pulmonary changes. Moderate sliding hiatal hernia. Diffuse thickening of the stomach suggestive of gastritis. Prior cholecystectomy. Percutaneous gastrostomy tube is in good position with its tip at the level of the gastric body. Gastroparesis/gastritis. Mild fullness of the left collecting system, probably reflux. Percutaneous gastrostomy tube is in good position with its tip at the level of the gastric body. Reading Location: [facility]
[2025-03-19] MEDS: Pantoprazole Sodium 40 MG in 0.9% Normal Saline (100mL MB+) 100 ML 330 MG IV (01:47)
[2025-03-19] MEDS: MELATONIN 10 MG TABLET 5 MG PO (01:51)
[2025-03-19] MEDS: DULoxetine Hcl 30 MG Capsule PO (01:51)
[2025-03-19] MEDS: traZODone 50 MG Tablet PO (01:53)
[2025-03-19] MEDS: Atorvastatin Calcium 20 MG Tablet PO (01:53)
[2025-03-19] MEDS: Tamsulosin HCl 0.4 MG Capsule PO (01:54)
[2025-03-19 02:17] LABS: Troponin T High Sens 4 HR 29 ng/L (<=22)
--- NOTE | 2025-03-19 07:22 | PCA ---
CALLED AT 0720 AND LET THE KNOW THAT [facility]. SHE WAS HEADING UP THERE.
== END 2025-03-19 07:26 ==
PROVIDERS: Emergency Provider Emergency Medicine; Referring Provider Emergency Medicine; Visit Provider Emergency Medicine
DX: R55 Syncope and collapse (principal); E11.43 Type 2 diabetes mellitus with diabetic autonomic (poly)neuropathy; D62 Acute posthemorrhagic anemia; I25.10 Atherosclerotic heart disease of native coronary artery without angina pectoris; I95.9 Hypotension, unspecified; K92.2 Gastrointestinal hemorrhage, unspecified; G47.33 Obstructive sleep apnea (adult) (pediatric); Z87.891 Personal history of nicotine dependence; Z79.01 Long term (current) use of anticoagulants; Z79.51 Long term (current) use of inhaled steroids; Z79.899 Other long term (current) drug therapy; Z79.82 Long term (current) use of aspirin; Z95.1 Presence of aortocoronary bypass graft
CPT/HCPCS: 71046; 74177; 80048; 82274; 84484; 85025; 93005; 96365; 99285; Q9967; A4216

== ENCOUNTER 2025-04-03 05:04 | Emergency (ER) | payer OTHER, SELFPAY ==
[2025-04-03] VITALS (11 sets, daily range): BP systolic 82–143; BP diastolic 46–68; PULSE 84–99; RESP 16–22; TEMP 36.6–37.3; O2SAT 96–100; BMI 25.0
--- NOTE | 2025-04-03 05:27 | CT_ITS ---
PROCEDURE: ABDOMEN/PELVIS W IV CONT ONLY 04/03/2025 REASON FOR EXAM: RLQ PAIN, DISTENSION, N/V TECHNIQUE: ABDOMEN/PELVIS W IV CONT ONLY Coronal and Sagittal reconstruction series were provided. CONTRAST: Isovue-350 VOLUME: 100 mL One or more dose reduction techniques were used (e.g., Automated exposure control, adjustment of the mA and/or kV according to patient size, use of iterative reconstruction technique. RADIATION DOSE SUMMARY: CTDlvol: 18 mGy DLP: 1056 mGycm COMPARISON: CT scan on 03/19/2025. FINDINGS: Moderate amount of fecal residue in the large bowel suggestive of constipation, increased. Partial small bowel obstruction, recurrent finding which is more prominent than the prior exam. Transition zone in the right lower quadrant without evidence of bowel perforation or pneumatosis intestinalis. Findings are probably secondary to an internal hernia without incarceration. 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 Minimal right pleural effusion, unchanged. Bilateral basilar atelectatic pulmonary changes. Moderate sliding hiatal hernia, unchanged. Diffuse thickening of the stomach suggestive of gastritis, unchanged. Prior cholecystectomy. Percutaneous gastrostomy tube is in good position with its tip at the level of the gastric body. Gastroparesis/gastritis, unchanged. Mild fullness of the left collecting system, probably reflux, unchanged. Percutaneous gastrostomy tube is in good position with its tip at the level of the gastric body. Scattered pancreatic cysts are noted with the largest measuring 1.2 cm. Findings are probably chronic. Normal liver. Normal extrahepatic biliary system. Normal spleen. Normal bilateral adrenal glands. Normal size of the right kidney. There is no right renal mass. There are no right renal calculi. There is no right hydronephrosis. Normal visualized right ureter. Normal size of the left kidney. There is no left renal mass. There are no left renal calculi. Calcified atheromatous plaques of the tortuous ectatic abdominal aorta. Normal inferior vena cava. Normal retroperitoneum. Normal urinary bladder. There is no pelvic mass lesion or lymphadenopathy. Diffuse spondylosis. Osteopenia. Occluded proximal aspect of the right superficial femoral artery, chronic finding. CT/Abdomen/Pelvis W IV Cont ONLY IMPRESSION: Moderate amount of fecal residue in the large bowel suggestive of constipation, increased. Partial small bowel obstruction, recurrent finding which is more prominent than the prior exam. Transition zone in the right lower quadrant without evidence of bowel perforati on or pneumatosis intestinalis. Findings are probably secondary to an internal hernia without incarceration. 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 2 x 3.7 cm, benign chronic finding, unchanged. Minimal right pleural effusion, unchanged. Bilateral basilar atelectatic pulmonary changes. Moderate sliding hiatal hernia, unchanged. Diffuse thickening of the stomach suggestive of gastritis, unchanged. Prior cholecystectomy. Percutaneous gastrostomy tube is in good position with its tip at the level of the gastric body. Gastroparesis/gastritis, unchanged. Mild fullness of the left collecting system, probably reflux, unchanged. Percutaneous gastrostomy tube is in good position with its tip at the level of the gastric body. Scattered pancreatic cysts are noted with the largest measuring 1.2 cm. Finding s are probably chronic. Interval appearance of mild amount of reactive free fluid in the right lower qu adrant. Reading Location: [facility]
--- NOTE | 2025-04-03 05:30 | ED.VIS.GI ---
HPI HPI - GI History of Present Illness Chief Complaint: Abd Pain Informant: patient, spouse/S.O. and EMS Narrative Narrative: 79-year-old male started having severe abdominal pain focused in the right lower quadrant tonight along with nausea and vomiting. Last bowel movement was yesterday and unremarkable. Normal urination. No chest discomfort, fevers, hematemesis. Seen here 2 weeks ago, he had occult GI bleeding and a CT that showed a partial small bowel obstruction with a transition point right lower quadrant he was transferred to the [place], states that they did not do surgery, but they observed him and symptoms seem to resolve on their. He has a feeding tube but they do not always use it. 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 Chronic atrial fibrillation Obstructive sleep apnea Former tobacco use Peripheral vascular disease Diabetes mellitus, type II Hyperlipidemia Encounter for monitoring sotalol therapy Right bundle branch block Hypertension Home Medications ?Medication ?Instructions ?Recorded ?Last Taken ?Type acetaminophen 325 mg tablet 975 mg PO Q8H PRN PRN Pain 08/23/18 Unknown History albuterol sulfate 90 mcg/actuation 2 puff inhalation Q4H PRN PRN Sob 08/23/18 Unknown History aerosol inhaler &/Or Wheezing apixaban 5 mg tablet 5 mg PO BID blood thinner 08/23/18 08/23/18 08:00 History aspirin 81 mg chewable tablet 81 mg PO DAILY@0800 health 08/23/18 08/23/18 History maintenance atorvastatin 40 mg tablet 20 mg PO QHS cholesterol 08/23/18 08/23/18 History levothyroxine 112 mcg tablet 112 mcg PO DAILY thyroid 08/23/18 08/23/18 History melatonin-pyridoxine HCl (vitamin 1 ea PO QHS PRN Sleep 08/23/18 08/22/18 History B6) 3 mg-10 mg tablet omeprazole 20 mg capsule,delayed 40 mg PO DAILY gerd 08/23/18 08/23/18 History release sotalol 80 mg tablet 40 mg PO BID heart 08/23/18 08/22/18 History trospium 20 mg tablet 20 mg PO BID overactive bladder 08/23/18 08/23/18 08:00 History cetirizine 10 mg tablet 10 mg PO DAILY 04/17/19 Unknown History ferrous sulfate 325 mg (65 mg 325 mg PO .COMPLEX 04/17/19 Unknown History iron) tablet fluticasone propionate 50 2 spray intranasal DAILY 04/17/19 Unknown History mcg/actuation nasal spray,suspension nitroglycerin 0.4 mg sublingual 0.4 mg sublingual Q5-15M 04/17/19 Unknown History tablet omega-3 fatty acids 1,000 mg 1,000 mg PO BID 04/17/19 Unknown History capsule (Fish Oil Concentrate) phenazopyridine 200 mg tablet 200 mg PO TID 04/17/19 Unknown History amiodarone 200 mg tablet 200 mg PO DAILY 03/18/25 Unknown History amlodipine 10 mg tablet 10 mg PO DAILY 03/18/25 Unknown History carboxymethylcellulose sodium 1 % 1 drp ophthalmic (eye) BID 03/18/25 Unknown History eye drops (Artificial Tears (carboxymethylcellulose)) duloxetine 30 mg capsule,delayed 30 mg PO QHS 03/18/25 Unknown History release (Cymbalta) duloxetine 30 mg capsule,delayed 60 mg PO BREAKFAST 03/18/25 Unknown History release (Cymbalta) hydroxyzine HCl 10 mg tablet 20 mg PO DAILY PRN anxiety 03/18/25 Unknown History losartan 25 mg tablet 50 mg PO DAILY 03/18/25 Unknown History olodaterol 2.5 mcg/actuation mist 2 inh inhalation DAILY 03/18/25 Unknown History for inhalation sennosides 8.6 mg-docusate sodium 2 tab-cap PO QHS 03/18/25 Unknown History 50 mg tablet tamsulosin 0.4 mg capsule 0.4 mg PO QHS 03/18/25 Unknown History trazodone 100 mg tablet 100 mg PO QHS 03/18/25 Unknown History Allergy/AdvReac Type Severity Reaction Status Date / Time No Known Allergies Allergy Verified 04/03/25 05:05 Family History Mother , age 54 Myocardial infarction CAD (coronary artery disease) Scarlet fever Father , Age 70 CAD (coronary artery disease) Myocardial infarction Sudden cardiac ETOH abuse Tobacco abuse Surgical History S/P percutaneous endoscopic gastrostomy (PEG) tube placement History of colectomy History of repair of hiatal hernia History of carotid endarterectomy Hx of CABG 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 History of cholecystectomy History of left heart catheterization (05/11/13) 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) Social History household members: spouse current occupational status: retired Smoking Status: Former smoker ROS ROS ED Constitutional Constitutional ED: Denies chills or fever(s) Eyes Eyes: Denies change in vision or diplopia ENT ENT ED: Denies rhinorrhea or sore throat Cardiovascular Cardiovascular: Denies chest pain or palpitations Respiratory/Chest Respiratory/Chest: Denies cough or dyspnea Gastrointestinal Gastrointestinal: Reports abdominal pain, nausea and vomiting; Denies diarrhea Genitourinary Genitourinary ED: Denies dysuria or hematuria Musculoskeletal Musculoskeletal: Denies back pain or neck pain Integumentary Denies abscess or rash Neurologic Neurologic: Denies headache(s), paresthesias or weakness Psychiatric Psychiatric: Denies suicidal thoughts EXAM Physical Exam Const Vital Signs: 04/03/25 05:06 04/03/25 05:10 04/03/25 06:10 Temperature 99 F 99 F 99.2 F H Temperature Source Oral Oral Oral Pulse Rate 97 99 90 Respiratory Rate 22 H 22 H 22 H Blood Pressure 82/68 L 105/62 111/50 L Blood Pressure Mean 72 76 70 Pulse Ox 98 96 98 Oxygen Delivery Method Room Air Room Air 04/03/25 07:07 Temperature 99.2 F H Temperature Source Oral Pulse Rate 89 Respiratory Rate 20 H Blood Pressure 115/66 Blood Pressure Mean 82 Pulse Ox 100 Oxygen Delivery Method Positive well nourished and well developed Constitutional Narrative: Mild painful distress General Appearance ED: well developed HEENT Reports moist mucous membranes normocephalic and atraumatic Eyes PERRL and EOMs intact bilaterally Neck full ROM and supple Resp normal respiratory effort and clear to auscultation bilaterally Cardio regular rate, regular rhythm and no murmurs GI GI Narrative: Distended, tender in the right lower quadrant mostly, but also in the left lower quadrant. No rebound tenderness. Auscultation: hypoactive bowel sounds Palpation: soft Back/Spine no CVA tenderness General Back: other FROM Extremity normal to inspection General Extremety ED: Negative for edema, pulses abnormal or tenderness General Extremity: Negative for edema or pulses abnormal Neuro oriented x3, CN's II-XII intact bilaterally and no sensory deficits noted Sensorium / Orientation: awake and alert Motor Exam: strength 5/5 throughout Psych Mood & Affect: anxious Skin no rashes or lesions noted and no wounds MDM MDM MDM Narrative Medical decision making narrative: Concerned about a possible bowel obstruction here with the patient basically having a quiet abdomen that is distended, very tender, and he is vomiting. He had an elective hiatal hernia repair that subsequently required repair of perforated bowel and resection of a piece of bowel, this was a month or 2 ago and also done at the [facility] where he was recently transferred/admitted. After IV fluids, pain and nausea medications patient is doing better. Still distended and uncomfortable. Vital signs remained stable. His lactate is elevated, BUN and creatinine are up a little, the rest of his labs are unremarkable including liver enzymes and lipase. Awaiting CT results. I reviewed the images, my concern is that it shows an acute bowel obstruction. I do not see evidence of free air. In context, lactate elevation could be indicative of early necrosis/mesenteric ischemia, less likely acute infection/sepsis. CT resulted I reviewed the result which I agree with, there is recurrent some more prominent findings of partial small bowel obstruction with transition zone in the right lower quadrant and no evidence of perforation or pneumatosis intestinalis and this is suggested to be related to an internal hernia without incarceration. 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 Again, patient has been at the [facility] for these issues in the recent past, I am planning to contact them for transfer, but since this is all occurring right before shift change, I am also discussing with the ED physician of next shift. I am also going to have nursing apply light intermittent wall suction to the patient's gastrostomy. History & Record Review Additional record(s) reviewed:: Prior ED visit Lab Data Attestation: I reviewed the patient's lab results. Labs: Laboratory Results - last 24 hr 04/03/25 05:14 WBC 5.9 RBC 3.36 L Hgb 10.6 L Hct 33.2 L MCV 98.8 H MCH 31.5 MCHC 31.9 L RDW Std Deviation 50.1 H RDW Coeff of John 13.8 Plt Count 353 MPV 10.6 Immature Gran % (Auto) 0.300 Neut % (Auto) 71.0 H Lymph % (Auto) 20.8 Gila % (Auto) 6.8 Eos % (Auto) 0.8 Baso % (Auto) 0.3 Absolute Neuts (auto) 4.2 Absolute Lymphs (auto) 1.23 Nucleated RBC % 0 Sodium 136 Potassium 4.2 Chloride 101 Carbon Dioxide 18.8 L Anion Gap 16 H BUN 35 H Creatinine 1.72 H Estim Creat Clear Calc 34.24 L Est GFR (MDRD) Non-Af 40 L BUN/Creatinine Ratio 20.2 H Glucose 155 H Lactic Acid 3.1 H* Calcium 9.1 Total Bilirubin 0.34 AST 15 ALT 9 Alkaline Phosphatase 81 Total Protein 6.8 Albumin 3.8 Globulin 3.0 Albumin/Globulin Ratio 1.3 Lipase 56 Radiography Diagnostic Testing: Clinical Impression(s) from Imaging Studies Abdomen/Pelvis CT 04/03/25 05:27 IMPRESSION: Moderate amount of fecal residue in the large bowel suggestive of constipation, increased. Partial small bowel obstruction, recurrent finding which is more prominent than the prior exam. Transition zone in the right lower quadrant without evidence of bowel perforation or pneumatosis intestinalis. Findings are probably secondary to an internal hernia without incarceration. 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 Minimal right pleural effusion, unchanged. Bilateral basilar atelectatic pulmonary changes. Moderate sliding hiatal hernia, unchanged. Diffuse thickening of the stomach suggestive of gastritis, unchanged. Prior cholecystectomy. Percutaneous gastrostomy tube is in good position with its tip at the level of the gastric body. Gastroparesis/gastritis, unchanged. Mild fullness of the left collecting system, probably reflux, unchanged. Percutaneous gastrostomy tube is in good position with its tip at the level of the gastric body. Scattered pancreatic cysts are noted with the largest measuring 1.2 cm. Findings are probably chronic. Interval appearance of mild amount of reactive free fluid in the right lower quadrant. Reading [facility] Discharge Plan Triage Chief Complaint: Abd Pain ED Provider: Kyler Sultana Dx/Rx/DC Orders Clinical Impression: Partial small bowel obstruction Prescriptions: No Action cetirizine 10 mg tablet 10 mg PO DAILY ferrous sulfate 325 mg (65 mg iron) tablet 325 mg PO .COMPLEX Rx Instructions: 325 mg PO 3 tablets by mouth every Mon, Weds, and Fri after a meal; omega-3 fatty acids [Fish Oil Concentrate] 1,000 mg capsule 1,000 mg PO BID fluticasone propionate 50 mcg/actuation spray,suspension 2 spray INTRANASAL DAILY nitroglycerin 0.4 mg tablet, sublingual 0.4 mg SUBLINGUAL Q5-15M phenazopyridine 200 mg tablet 200 mg PO TID atorvastatin 40 MG tablet 20 mg PO QHS sotalol 80 MG tablet 40 mg PO BID omeprazole 20 MG capsule 40 mg PO DAILY aspirin 81 MG tablet,chewable 81 mg PO DAILY@0800 albuterol sulfate 1 INHALER inhaler 2 puff inhalation Q4H PRN PRN (Reason: Sob &/Or Wheezing) levothyroxine 112 MCG tablet 112 mcg PO DAILY trospium 20 MG tablet 20 mg PO BID apixaban 5 MG tablet 5 mg PO BID acetaminophen 325 MG tablet 975 mg PO Q8H PRN PRN (Reason: Pain) melatonin-pyridoxine HCl (B6) 1 EACH tablet 1 ea PO QHS PRN (Reason: Sleep) duloxetine [Cymbalta] 30 mg capsule,delayed release(DR/EC) 60 mg PO BREAKFAST duloxetine [Cymbalta] 30 mg capsule,delayed release(DR/EC) 30 mg PO QHS hydroxyzine HCl 10 mg tablet 20 mg PO DAILY PRN (Reason: anxiety) olodaterol 2.5 mcg/actuation mist 2 inh inhalation DAILY tamsulosin 0.4 mg capsule 0.4 mg PO QHS trazodone 100 mg tablet 100 mg PO QHS amiodarone 200 mg tablet 200 mg PO DAILY amlodipine 10 mg tablet 10 mg PO DAILY sennosides-docusate sodium 8.6-50 mg tablet 2 tab-cap PO QHS Artificial Tears (cmc) 1 % drops 1 drp ophthalmic (eye) BID losartan 25 mg tablet 50 mg PO DAILY Primary [facility] Provider: [facility] [Primary Care Provider] - Print Language: Polish Disposition Disposition: [facility]
[2025-04-03] MEDS: 0.9% Normal Saline (1000mL) 1,000 ML 999 ML IV (05:42)
[2025-04-03] MEDS: Ondansetron 4 MG/2 ML Vial IV ×2 (05:42→13:15)
[2025-04-03 05:43] LABS: Absolute Lymphocyte Count 1.23 X10^3/uL (0.83-4.51); Absolute Neutrophil Count 4.2 X10^3/uL (2.0-7.7); Basophil# 0.02 X10^3/uL; Basophil% 0.3 % (0-1); Eosinophil# 0.05 X10^3/uL; Eosinophils% 0.8 % (0-5); Hematocrit 33.2 % (40-54); Hemoglobin 10.6 g/dL (13.0-16.5); Lymphocyte # 1.23 X10^3/ul (0.83-4.51); Lymphocyte % 20.8 % (19-41); Mean Corp Hgb Conc 31.9 g/dL (32-36); Mean Corpuscular Hgb 31.5 pg (27.0-32.0); Mean Corpuscular Volume 98.8 fL (80-94); Mean Platelet Vol. 10.6 fl (6.2-12.0); Monocyte% 6.8 % (0-10); NRBC Flagged by Analyzer 0 % (0-5); Platelet Count 353 K/mm3 (150-450); RBC Distribution Width CV 13.8 % (11.6-14.6); RBC Distribution Width SD 50.1 fl (35.1-43.9); Red Blood Count 3.36 M/mm3 (4.6-6.2); White Blood Count 5.9 K/mm3 (4.4-11.0)
[2025-04-03] MEDS: Morphine 4 MG/ML Syringe IV ×3 (05:43→13:16)
--- OUTSIDE RECORDS SUMMARY | 2025-04-03 06:02 | XMS RPT_ITS | CCD ---
Author Organization [facility] Care Team Providers Care Hot Metal Charger Name Role Phone RIDERDAVID Attending Unavailable ERIC LOUISE Primary Care Unavailable [place] Primary Care Provider Dr. Arnie Hunter Attending Provider [place] Primary Care Provider Dr. Kyler Jacobo Emergency Provider [phone] Dr. Carlo Cristina Attending Provider Frank SAUCEDA, Prasanna Unavailable Shana Becerra) Primary Care [place] Primary Care Provider Dr. Kyler Jacobo MD Referring Provider Dr. Kyler Sultana MD Emergency Provider Kyler Sultana Referring Unavailable Kyler Sultana Attending Unavailable [place] Primary [place] Unavailable Allergies Allergy Classification Reported Allergen(s) Allergy Type Date of Onset Reaction(s) Facility (1 source) Lisinopril Drug Allergy 04-22-2018 Unknown [facility] (1 source) oxyCODONE Drug Allergy 04-28-2018 Other: See Comments [facility] Medications Current Medications Medication Drug Class(es) Dates Sig (Normalized) Sig (Original) acetaminophen 325 mg oral tablet (4 sources) Start: 08-23-2018 take 3 tablets by mouth every eight hours as needed for pain Acetaminophen 325 MG tablet Active 975 mg PO EVERY 8 HOURS NEEDED as needed for Pain August 23, 2018 1:00am Start: 08-23-2018 take 650 mg by mouth every six hours Acetaminophen Active 650 MG PO EVERY 6 HOURS August 23, 2018 1:00am [facility] hours as needed acetaminophen (TYLENOL) 325 mg tablet Take 650 mg by mouth every 6 hours as needed. 0 Active Comment on above: Take 650 mg by mouth every 6 hours as needed. Albuterol (4 sources) beta2-Adrenergic Agonist Start: 08-23-2018 Albuterol Sulfate 1 INHALER inhaler Active 2 NMA INHALATION EVERY 4 HOURS NEEDED as needed for Sob &/Or Wheezing August 23, 2018 1:00am Start: 08-23-2018 take 1 puff(s) by in halation every four hours as needed Albuterol Sulfate Active 2 PUFF INHALATION EVERY 4 HOURS NEEDED August 23, 2018 1:00am take 2 puff(s) by in halation every six hours as needed for wheezing albuterol HFA (PROVENTIL HFA, VENTOLIN HFA) 90 mcg/actuation inhaler Inhale 2 Puffs as instructed every 6 hours as needed for Wheezing/Shortness of Breath. 0 Active Comment on above: Inhale 2 Puffs as in structed every 6 hours as needed for Wheezing/Shortness of Breath. amiodarone hydrochloride 200 mg oral tablet (1 source) Antiarrhythmic Start: 03-18-20 take 1 tablet by mouth once daily Amiodarone 200 mg tablet Active 200 mg PO DAILY March 18, 2025 12:00am amLODIPine 10 mg oral tablet (5 sources) Dihydropyridine Calcium Channel Jennifer Start: 03-18-20 take 1 tablet by mouth once daily Amlodipine 10 mg tablet Active 10 mg PO DAILY March 18, 2025 12:00am Start: 08-23-2018 End: 04-17-2019 take 1 tablet by mouth once daily Amlodipine 5 MG tablet Discontinued 5 mg PO DAILY August 23, 2018 1:00am April 17, 2019 6:50pm take 1 tablet by [place] once daily amLODIPine (NORVASC) 10 mg tablet Take 10 mg by mouth once daily. 0 Active Comment on above: Take 10 mg by mouth once daily. apixaban 5 mg oral tablet (4 sources) Factor Xa Inhibitor Start: 08-23-2018 take 1 tablet by mouth twice daily Apixaban 5 MG tablet Active 5 mg PO TWICE A DAY August 23, 2018 1:00am Comment on above: Take 5 mg by mouth t wice daily. aspirin 81 mg chewable tablet (4 sources) Platelet Aggregation Inhibitor, Nonsteroidal Anti-inflammatory Drug Start: 08-23-2018 take 1 tablet by mouth once daily Aspirin 81 MG tablet,chewable Active 81 mg PO DAILY@0800 August 23, 2018 1:00am take 1 tablet by mouth once [place] BABY ASPIRIN ORAL Take 1 tablet by mouth once daily. 0 Active Comment on above: Take 1 tablet by [place] once daily. atorvastatin 40 mg oral tablet (4 sources) HMG-CoA Reductase Inhibitor Start: 08-23-2018 Atorvastatin 40 MG tablet Active 20 mg PO AT BEDTIME August 23, 2018 1:00am Start: 08-23-2018 take 40 mg by mouth at bedtime Atorvastatin Active 40 MG PO AT BEDTIME August 23, 2018 1:00am atorvastatin (LI PITOR) 80 mg tablet Take 40 mg by mouth once daily. 0 Active Comment on above: Take 40 mg by mouth once daily. calcium carbonate 1625 mg oral tablet (2 sources) Star t: 05-30 take 650 mg by mouth twice daily Calcium Carbonate Active 650 MG PO TWICE A DAY April 17, 2019 12:00am carboxymethylcellulose sodium 10 mg/ml ophthalmic solution (1 source) Star t: 05-30 take 1 drop(s) into the eye(s) twice daily Carboxymethylcellulose Sodium (Artificial Tears (Cmc)) 1 % drops Active 1 NMA OPHTHALMIC TWICE A DAY March 18, 2025 12:00am cetirizine hydrochloride 10 mg oral tablet (4 sources) Histamine-1 Receptor Antagonist Star t: 05-30 take 1 tablet by mouth once daily Cetirizine 10 mg tablet Active 10 mg PO DAILY April 17, 2019 12:00am Comment on above: Take 10 mg by mouth once daily. docusate sodium 50 mg / sennosides, care home 8.6 mg oral tablet (1 source) Star t: 05-30 Sennosides-Docusate Sodium 8.6-50 mg tablet Active 2 NMA PO AT BEDTIME March 18, 2025 12:00am DULoxetine 30 mg delayed release oral capsule (2 sources) Serotonin and Norepinephrine Reuptake Inhibitor Star t: 05-30 take 2 capsules by mouth at breakfast Duloxetine (Cymbalta) 30 mg capsule,delayed release(DR/EC) Active 60 mg PO WITH BREAKFAST March 18, 2025 12:00am Start: 03-18-2025 take 1 capsule by mo [facility] at bedtime Duloxetine (Cymbalta) 30 mg capsule,delayed release(DR/EC) Active 30 mg PO AT BEDTIME March 18, 2025 12:00am ferrous sulfate 325 mg oral tablet (3 sources) Start: 04-17-2019 take 3 tablets by mouth once after mealtime Ferrous Sulfate 325 mg (65 mg iron) tablet Active 325 mg PO .COMPLEX April 17, 2019 12:00am 325 mg PO 3 tablets by mouth every Mon, Weds, and Fri after a meal; fluticasone propionate 0.05 mg/actuat metered dose nasal spray (4 sources) Corticosteroid Start: 04-17-2019 Fluticasone Propionate 50 mcg/actuation spray,suspension Active 2 NMA INTRANASAL DAILY April 17, 2019 12:00am Start: 04-17-2019 Fluticasone Pr opionate Active 2 SPRAY INTRANASAL DAILY April 17, 2019 12:00am take 2 spray(s) nasa l route once daily fluticasone (ALLERGY RELIEF, FLUTICASONE,) 50 mcg/actuation nasal spray Use 2 Sprays in each nostril once daily. 0 Active Comment on above: Use 2 Sprays in each nostril once daily. hydrOXYzine hydrochloride 10 mg oral tablet (1 source) Antihistamine Start: 03-18-20 take 2 tablets by mouth once daily as needed for anxiety Hydroxyzine Hcl 10 mg tablet Active 20 mg PO DAILY as needed for anxiety March 18, 2025 12:00am levothyroxine sodium 0.112 mg oral tablet (4 sources) l-Thyroxine Start: 08-23-20 18 take 1 tablet by mouth once daily Levothyroxine 112 MCG tablet Active 112 ug PO DAILY August 23, 2018 1:00am Comment on above: Take 112 mcg by mout h daily before breakfast. losartan potassium 25 mg oral tablet (4 sources) Angiotensin 2 Receptor Jennifer Start: 03-18-20 25 take 2 tablets by mouth once daily Losartan 25 mg tablet Active 50 mg PO DAILY March 18, 2025 12:00am Start: 04-18-2019 End: 03-18-2025 take 1 tablet by mouth once daily Losartan 25 mg tablet Discontinued 25 mg PO DAILY April 18, 2019 12:00am March 18, 2025 9:55pm melatonin 3 mg / vitamin b6 10 mg oral tablet (3 sources) Start: 08-23-2018 take 1 tablet by mouth at bedtime as needed Melatonin-Pyridoxine Hcl (B6) 1 EACH tablet Active 1 NMA PO AT BEDTIME as needed for Sleep August 23, 2018 1:00am Start: 08-23-2018 Melatonin-Pyri doxine Hcl (B6) Active 1 EACH PO AT BEDTIME August 23, 2018 1:00am nitroglycerin 0.4 mg sublingual tablet (3 sources) Nitrate Vasodilator Start: 04-17-2019 Nitroglyce rin 0.4 mg tablet, sublingual Active 0.4 mg SL every 5 to 15 minutes April 17, 2019 12:00am Start: 04-17-2019 Nitroglycerin Active 0.4 MG SL every 5 to 15 minutes April 17, 2019 12:00am Olodaterol (1 source) beta2-Adrenergic Agonist Start: 03-18-2025 take 2.5 ug by inhalation once daily Olodaterol 2.5 mcg/actuation mist Active 2 NMA INHALATION DAILY March 18, 2025 12:00am [place]-3 Fatty Acids (Fish Oil Concentrate) 1,000 mg capsule (3 sources) Start: 04-17-2019 take 1 capsule by mouth twice daily [place]-3 Fatty Acids (Fish Oil Concentrate) 1,000 mg capsule Active 1000 mg PO TWICE A DAY April 17, 2019 12:00am Start: 04-17-2019 [facility] [place]-3 Fatty Acids (Fish Oil Concentrate) 1,000 mg capsule Active 1000 MG PO TWICE A DAY April 17, 2019 12:00am omeprazole 20 mg delayed release oral capsule (4 sources) Proton Pump Inhibitor Start: 08-23-2018 take 2 capsules by mouth once daily Omeprazole 20 MG capsule Active 40 mg PO DAILY August 23, 2018 1:00am Start: 08-23-2018 take 40 mg by mouth once daily Omeprazole Active 40 MG PO DAILY August 23, 2018 1:00am take 1 [facility] daily omeprazole (PRILOSEC) 20 mg capsule Take 20 mg by mouth once daily. 0 Active Comment on above: Take 20 mg by mouth once daily. phenazopyridine hydrochloride 200 mg oral tablet (4 sources) Start: take 1 tablet by mouth three times daily Phenazopyridine 200 mg tablet Active 200 mg PO THREE TIMES A DAY April 17, 2019 12:00am phenazopyridine HCl (AZO ORAL) Take by mouth. 0 Active Comment on above: Take by mouth. sotalol hydrochloride 80 mg oral tablet (4 sources) Antiarrhythmic Start: 08-23-2018 Sotalol 80 MG tablet Active 40 mg PO TWICE A DAY August 23, 2018 1:00am Start: 08-23-2018 take 40 mg by mouth twice [place] Sotalol Active 40 MG PO TWICE A DAY August 23, 2018 1:00am Comment on above: Take 40 mg by mouth twice daily. tamsulosin hydrochloride 0.4 mg oral capsule (1 source) alpha-Adrenergic Jenniefr Start: 5 take 1 capsule by mouth at bedtime Tamsulosin 0.4 mg capsule Active 0.4 mg PO AT BEDTIME March 18, 2025 12:00am traZODone hydrochloride 100 mg oral tablet (1 source) Serotonin Reuptake Inhibitor Start: 5 take 1 tablet by mouth at bedtime Trazodone 100 mg tablet Active 100 mg PO AT BEDTIME March 18, 2025 12:00am trospium chloride 20 mg oral tablet (4 sources) Cholinergic Muscarinic Antagonist Start: 8 take 1 tablet by mouth twice daily Trospium 20 MG tablet Active 20 mg PO TWICE A DAY August 23, 2018 1:00am Comment on above: Take 20 mg by mouth twice daily. Completed/Discontinued Medications Medication Drug Class(es) Dates Sig (Normalized) Sig (Original) ascorbic acid 250 mg oral tablet (3 sources) Vitamin C Start: 04-17-2019 End: 03-18-2025 take 1 tablet by mouth three times daily Ascorbic Acid (Vitamin C) 250 mg tablet Discontinued 250 mg PO .COMPLEX April 17, 2019 12:00am March 18, 2025 9:47pm 250 mg PO TID on Mon, Weds and Wed only; bicalutamide 50 mg oral tablet (4 sources) Androgen Receptor Inhibitor Start: 08-23-2018 End: 03-18-2025 take 1 tablet by mouth at bedtime Bicalutamide 50 MG tablet Discontinued 150 mg PO AT BEDTIME August 23, 2018 1:00am March 18, 2025 9:55pm Start: 08-23-2018 take 150 mg by mouth at bedtim e Bicalutamide Active 150 MG PO AT BEDTIME August 23, 2018 1:00am take 3 tablets by mo uth once daily bicalutamide (CASODEX) 50 mg tablet Take 150 mg by mouth once daily. 0 Active Comment on above: Take 150 mg by mouth once daily. 120 actuat budesonide 0.16 mg/actuat / formoterol fumarate 0.0045 mg/actuat metered dose inhaler (4 sources) Corticosteroid, beta2-Adrenergic Agonist Start: 04-17-2019 End: 03-18-2025 Budesonide-Formoterol 160-4.5 mcg/actuation HFA aerosol inhaler Discontinued 2 NMA INHALATION TWICE A DAY April 17, 2019 12:00am March 18, 2025 9:55pm Start: 04-17-2019 take 1 puff(s) by in halation twice daily Budesonide-Formoterol Active 2 PUFF INHALATION TWICE A DAY April 17, 2019 12:00am take 1 puff(s) by in halation twice daily budesonide-formoterol (SYMBICORT) 160-4.5 mcg/actuation inhaler Inhale 1 Puff as instructed twice daily. 0 Active Comment on above: Inhale 1 Puff as ins tructed twice daily. Calcium Carbonate 650 mg calcium (1,625 mg) tablet (1 source) Start: 2018 End: 2024 take 1 tablet by mouth twice daily Calcium Carbonate 650 mg calcium (1,625 mg) tablet Discontinued 650 mg PO TWICE A DAY April 17, 2019 12:00am March 18, 2025 9:47pm capsaicin 0.25 mg/ml topical cream (3 sources) Start: 2018 End: 2024 Capsaicin 0.025 % cream Discontinued 1 NMA TOPICAL THREE TIMES A DAY April 17, 2019 12:00am March 18, 2025 9:47pm cholecalciferol 0.025 mg oral tablet (4 sources) Vitamin D Start: 2017 End: 2024 take 1 tablet by mouth once daily Cholecalciferol (Vitamin D3) 1,000 UNIT tablet Discontinued 1000 U PO DAILY August 23, 2018 1:00am March 18, 2025 9:47pm Comment on above: Take 1,000 Units by mouth once daily. cloNIDine hydrochloride 0.1 mg oral tablet (3 sources) Central alpha-2 Adrenergic Agonist Start: 2017 End: 2018 take 1 tablet by mouth twice daily as needed Clonidine Hcl 0.1 MG tablet Discontinued 0.1 mg PO TWICE A DAY as needed for Blood Pressure August 23, 2018 1:00am April 17, 2019 6:50pm cranberry fruit concentrate (AZO CRANBERRY ORAL) (1 source) take 2 tablets by mouth twice daily cranberry fruit concentrate (AZO CRANBERRY ORAL) Take 2 tablets by mouth twice daily. 0 Active Comment on above: Take 2 tablets by mo ut twice daily. diclofenac sodium 0.01 mg/mg topical [...] needed. docusate sodium 100 mg oral capsule (4 sources) Start: 2017 End: 2018 take 1 capsule by mouth twice daily Docusate Sodium 100 MG capsule Discontinued 100 mg PO TWICE A DAY August 23, 2018 1:00am April 17, 2019 6:50pm Comment on above: Take 100 mg by mouth twice daily. hydroCHLOROthiazide 12.5 mg / losartan potassium 50 mg oral tablet (3 sources) Thiazide Diuretic, Angiotensin 2 Receptor Jennifer Start: 2018 End: 2018 Losartan-Hydrochloro thiazide (Hyzaar) 50-12.5 mg tablet Discontinued 1 {tbl} PO DAILY 30 April 18, 2019 12:00am April 18, 2019 1:55pm ipratropium bromide 0.021 mg/actuat metered dose nasal spray (3 sources) Anticholinergic Start: 2018 End: 2024 Ipratropium [place] 0.03 % spray,non-aerosol Discontinued 1 NMA INTRANASAL THREE TIMES A DAY April 17, 2019 12:00am March 18, 2025 9:48pm Start: 04-17-2019 Ipratropium Br omide Active 1 SPRAY INTRANASAL THREE TIMES A DAY April 17, 2019 12:00am 24 hr isosorbide mononitrate 30 mg extended release oral tablet (3 sources) Nitrate Vasodilator Start: 08-25-2018 End: 03-18-2025 take 1 tablet by mouth once daily Isosorbide Mononitrate 30 MG tablet Discontinued 30 mg PO DAILY 30 August 25, 2018 1:00am March 18, 2025 9:47pm 24 hr metoprolol succinate 50 mg extended release oral tablet (4 sources) beta-Adrenergic Jennifer Start: 08-23-2018 End: 04-17-2019 take 1 tablet by mouth once daily Metoprolol Succinate 50 MG tablet extended release 24 hr Discontinued 50 mg PO DAILY August 23, 2018 1:00am April 17, 2019 6:49pm metoprolol tartr ate, short acting, (LOPRESSOR) 100 mg tablet Take 50 mg by mouth once daily. 0 Active Comment on above: Take 50 mg by mouth once daily. [id number]-EPA-Fish Oil (FISH OIL) 1,000 mg (120 mg-180 mg) cap (1 source) take 1 capsule by mouth twice daily Dgmjq-9-RSO-EPA-Fish Oil (FISH OIL) 1,000 mg (120 mg-180 mg) cap Take 2 g by mouth twice daily. 0 Active Comment on above: Take 2 g by mouth tw ice daily. traMADol hydrochloride 50 mg oral tablet (4 sources) Opioid Agonist Start: 8 End: take 1 tablet by mouth every twelve hours as needed for pain Tramadol 50 MG tablet Discontinued 50 mg PO Q12H as needed for Pain August 23, 2018 1:00am April 17, 2019 6:49pm take 1 tablet by mouth twice aggie ly traMADol (ULTRAM) 50 mg tablet Take 50 mg by mouth twice daily. 0 Active Comment on above: Take 50 mg by mouth twice daily. Problems Active Problems Problem Classification Problem Date Documented Da te Episodic/Chronic Acute posthemorrhagic anemia (1 source) Acute posthemorrhagic anemia; Translations: [Acute posthemorrhagic anemia] 03-19-2025 Episodic Cancer of prostate (1 source) Malignant tumor of prostate; Translations: [Malignant neoplasm of prostate] Onset: 8 04-29-2018 Chronic Cardiac dysrhythmias (3 sources) Chronic atrial fibrillation; Translations: [Chronic atrial fibrillation, unspecified] 04-17-2019 Chronic Complication of device; implant or graft (3 sources) Arteriosclerosis of coronary artery bypass graft; Translations: [Atherosclerosis of coronary artery bypass graft(s) without angina pectoris] 04-17-2019 Chronic Conduction disorders (3 sources) Right bundle branch block; Translations: [Unspecified right bundle-branch block] 04-17-2019 Chronic Coronary atherosclerosis and other heart disease (3 sources) Coronary atherosclerosis; Translations: [Atherosclerotic heart disease of [place] coronary artery without angina pectoris] 04-17-2019 Chronic Diabetes mellitus without complication (3 sources) Type 2 diabetes mellitus; Translations: [Type 2 diabetes mellitus without complications] 04-17-2019 Chronic Disorders of lipid metabolism (3 sources) Hyperlipidemia; Translations: [Hyperlipidemia, unspecified] 04-17-2019 Chronic Essential hypertension (3 sources) Hypertensive disorder; Translations: [Essential (primary) hypertension] 04-17-2019 Chronic Intestinal obstruction without hernia (1 source) Partial obstruction of intestine; Translations: [Partial intestinal obstruction, unspecified as to cause] 03-19-2025 Episodic Nonspecific chest pain (3 sources) Chest pain; Translations: [Chest pain, unspecified] 04-17-2019 Episodic Other aftercare (2 sources) Patient encounter status; Translations: [Encounter for therapeutic drug level monitoring] 04-17-2019 Episodic Other aftercare (1 source) Anticoagulant effect; Translations: [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] 03-19-2025 Episodic Other aftercare (1 source) Long-term current use of drug therapy; Translations: [Encounter for therapeutic drug level monitoring] 04-17-2019 Episodic Other circulatory disease (1 source) Transient hypotension; Translations: [Hypotension, unspecified] 03-18-2025 Episodic Other circulatory disease (1 source) Orthostatic hypotension; Translations: [Orthostatic hypotension] 03-19-2025 Episodic Other gastrointestinal disorders (3 sources) Diarrhea; Translations: [Diarrhea, unspecified] 02-08-2021 Episodic Other gastrointestinal disorders (1 source) Occult blood in stools; Translations: [Other fecal abnormalities] 03-19-2025 Episodic Other hematologic conditions (3 sources) Raised cardiac enzyme or marker; Translations: [Other specified abnormalities of plasma proteins] 04-17-2019 Episodic Other injuries and conditions due to external causes (2 sources) Foreign body in esophagus; Translations: [Unspecified foreign body in esophagus causing other injury, initial encounter] 01-08-2024 Episodic Other injuries and conditions due to external causes (2 sources) Injury of head; Translations: [Unspecified injury of head, initial encounter] 08-24-2023 Episodic Other lower respiratory disease (1 source) Shortness of breath; Translations: [Shortness of breath] Onset: Episodic Peripheral and visceral atherosclerosis (6 sources) Stenosis of lower limb artery; Translations: [Unspecified atherosclerosis of [place] arteries of extremities, bilateral legs] 04-17-2019 Chronic Comment on above: Bilateral peripheral vascular stents Residual codes; unclassified (3 sources) Obstructive sleep apnea syndrome; Translations: [Obstructive sleep apnea (adult) (pediatric)] 04-17-2019 Chronic Comment on above: Uses CPAP Screening and history of mental health and substance abuse codes (3 sources) Ex-tobacco user; Translations: [Personal history of nicotine dependence] 04-17-2019 Episodic Comment on above: Quit 1993 Superficial injury; contusion (2 sources) Contusion of eyeball and orbital tissues, right eye, initial encounter; Translations: [Periorbital contusion of right eye] 08-24-2023 Episodic Syncope (1 source) Near syncope; Translations: [Syncope and collapse] 03-18-2025 Episodic Past or Other Problems Problem Classification Problem Date Documented Date Episodic/Chronic Residual codes; unclassified (3 sources) History of cardiac catheterization; Translations: [Other specified postprocedural states] Onset: 05-11-2013 04-17-2019 Episodic Comment on above: 10/1993 prior to CABG : also 10/24/[address] Antoni Helms @ [facility];LAD is occluded proximally after first septal pit laborer,RCA is occluded mid-segment,SVG to RCA is occluded at origin, SVG to OM is occluded at origin; not amenable to re-do bypass or PCI, recommend medical therapy.05/11/[address] 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 Results Test Name Value Interpretation Reference Range Facility Abdomen/Pelvis W IV Cont ONL Yon 03-19-2025 Abdomen/Pelvis W IV Cont ONLY [facility] [address] [place] [address] Abdomen/Pelvis W IV Cont ONLY MR#: [id number] Acct: [id number] Name: ALEJANDRO MOTT Rep #: [id number] : 1945 M [id number] From: Corin chester MD PCP: [facility] Status: REG ER Study: Abdomen/Pelvis W IV Cont ONLY Date of Exam: Exam# [id number] Ordering Dr: Kyler Sultana MD PROCEDURE: ABDOMEN/PELVIS W IV CONT ONLY 03/19/2025 REASON FOR EXAM: DISTENSION, GI BLEEDING, RECENT FALL TECHNIQUE: Abdomen and pelvis CT with intravenous contrast. Coronal and Sagittal reconstruction series were provided. PATIENT PREPARATION: Per protocol ORAL CONTRAST TYPE: None. AMOUNT: mL CONTRAST: Isovue-350 VOLUME: 100 mL One or more dose reduction techniques were used (e.g., Automated exposure control, adjustment of the mA and/or kV according to patient size, use of iterative reconstruction technique. RADIATION DOSE SUMMARY: CTDlvol: 18.97 mGy DLP: 1047 mGycm COMPARISON: None. FINDINGS: Moderate amount of fecal residue in the large bowel suggestive of constipation. Partial small bowel obstruction. Transition zone in the right lower quadrant without evidence of bowel perforation or pneumatosis intestinalis. 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 Minimal right pleural effusion. Bilateral basilar atelectatic pulmonary changes. Moderate sliding hiatal hernia. Diffuse thickening of the stomach suggestive of gastritis. Prior cholecystectomy. Percutaneous gastrostomy tube is in good position with its tip at the level of the gastric body. Gastroparesis/gastriti s. Mild fullness of the left collecting system, probably reflux. Percutaneous gastrostomy tube is in good position with its tip at the level of the gastric body. Scattered pancreatic cysts are noted with the largest measuring 1.2 cm. Findings are probably chronic. Normal liver. Normal extrahepatic biliary system. Normal spleen. Normal bilateral adrenal glands. Normal size of the right kidney. There is no right renal mass. There are no right renal calculi. There is no right hydronephrosis. Normal visualized right ureter. Normal size of the left kidney. There is no left renal mass. There are no left renal calculi. There is no demonstrated peritoneal fluid. Calcified atheromatous plaques of the tortuous ectatic abdominal aorta. Normal inferior vena cava. Normal retroperitoneum. Normal urinary bladder. There is no pelvic mass lesion or lymphadenopathy. There is no pelvic fluid. Diffuse spondylosis. Osteopenia. Occluded proximal aspect of the right superficial femoral artery, chronic finding. CT/Abdomen/Pelvis W IV Cont ONLY IMPRESSION: Moderate amount of fecal residue in the large bowel suggestive of constipation. Partial small bowel obstruction. Transition zone in the right lower quadrant without evidence of bowel perforation or pneumatosis intestinalis. 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 Minimal right pleural effusion. Bilateral basilar atelectatic pulmonary changes. Moderate sliding hiatal hernia. Diffuse thickening of the stomach suggestive of gastritis. Prior cholecystectomy. Percutaneous gastrostomy tube is in good position with its tip at the level of the gastric body. Gastroparesis/gastriti s. Mild fullness of the left collecting system, probably reflux. Percutaneous gastrostomy tube is in good position with its tip at the level of the gastric body. Reading Location: [place] [address] CC: Dr. Kyler Sultana MD; [facility] Track Grinder: Signed Normal [facility] L499.0042on 03-19-2025 Trop T High Sen 30 ng/L High <=22 [facility] Comment on above: Performed By: #### L 499.0042 #### [facility] [address] [place], [place], [id number] L499.0043on 03-19-2025 Trop T High Sen 29 ng/L High <=22 [facility] Comment on above: Performed By: #### L 499.0043 #### [facility] [address] [place], [place], [id number] Stool Occult Blood iFOBon STOB Positive Normal [facility] Comment on above: Performed By: #### M 100.7900 #### [facility] [address] [place], [place], [id number] Troponin T.cardiac [Mass/vol ume] in Serum or Plasma by High sensitivity methodOrdered By: Kyler Sultana on 03-19-2025 Troponin T.cardiac High sensitivity method [Mass/Vol] 29 ng/L High <22 [facility] 12 Lead EKGon 03-18-2025 12 Lead EKG [facility] Cardiovascular Services [address] [place] [address] 12 Lead EKG 03/18/25 2112 MR#: [id number] Acct: [id number] Name: ALEJANDRO MOTT Rep #: [id number] : 1945 79 From: Donovan Malhotra MD Attending Dr: Status: DEP ER Ordering Dr: Kyler Sultana MD Date: 03/18/25 Location: ED Sex: M C Admitted: Test Reason : Blood Pressure : */* mmHG Vent. Rate : 82 BPM Atrial Rate : 82 BPM P-R Int : 214 ms QRS Dur : 148 ms QT Int : 426 ms P-R-T Axes : 10 68 32 degrees QTcB Int : 497 ms Sinus rhythm with 1st degree A-V block Right bundle branch block Abnormal ECG Confirmed by Donovan Malhotra ([id number]), staff editor MADAY FRANCO ([id number]) on 03/20/2025 6:17:26 AM Referred By: Kyler Sultana Confirmed By: Donovan Malhotra 03/20/25 0617 Date Donovan Malhotra MD CC: Dr. Kyler Sultana MD; [facility] Signed Normal [facility] Absolute lymphocyte countOrd ered By: Kyler Sultana on 03-18-2025 Lymphocytes Auto (Unsp spec) [#/Vol] 1.88 10*3/uL 0.83-4.51 [facility] Absolute neutrophil countOrd ered By: Kyler Sultana on 03-18-2025 Neutrophils (Bld) [#/Vol] 6.5 10*3/uL 2.0-7.7 [facility] Anion gap in Serum or Plasma Ordered By: Kyler Sultana on 03-18-2025 Anion gap [Moles/Vol] 16 mmol/L High 5-15 [facility] Automated lymphocyte count a s percentage of total leukocytesOrdered By: Kyler Sultana on 03-18-2025 Lymphocytes/100 WBC Auto (Unsp spec) 19.6 % 19-41 [facility] BUN/creatinine ratioOrdered By: Kyler Sultana on 03-18-2025 Urea nitrogen/Creatinine [Mass ratio] 21.4 mg/mg High 10 [facility] Basic Metabolic Profile (BMP )on 03-18-2025 BUN/CRE 21.4 RATIO High - [facility] Comment on above: Performed By: #### L 100.0100, L501.4021, L500.2500 #### [facility] [address] [place], [address] Calcium [Mass/Vol] 9.2 mg/dL Normal 7.6-11.0 [facility] Comment on above: Performed By: #### L 100.0100, L501.4021, L500.2500 #### [facility] [address] [place], [address] Chloride [Moles/Vol] 103 mmol/L Normal 98-108 [facility] Comment on above: Performed By: #### L 100.0100, L501.4021, L500.2500 #### [facility] [address] [place], [address] CO2 [Moles/Vol] 18.6 mmol/L Low 21.0-32.0 [facility] Comment on above: Performed By: #### L 100.0100, L501.4021, L500.2500 #### [facility] [address] [place], [address] Creatinine [Mass/Vol] 1.48 mg/dL High 0.70-1.20 [facility] Comment on above: Performed By: #### L 100.0100, L501.4021, L500.2500 #### [facility] [address] [place], [address] ECRCL 39.80 ml/min Low 50-250 [facility] Comment on above: Performed By: #### L 100.0100, L501.4021, L500.2500 #### [facility] [address] [place], [address] GAP 16 High 5-15 [facility] Comment on above: Performed By: #### L 100.0100, L501.4021, L500.2500 #### [facility] [address] [place], [address] GFR/1.73 sq M.predicted among non-blacks MDRD (S/P/Bld) [Vol rate/Area] 48 mL/min/{1.73_m2} Low >60 [facility] Comment on above: Result Comment: mL/m in/1.73m2 CKD-EPI Creatinine Equation (2020) Performed By: #### L 100.0100, L501.4021, L500.2500 #### [facility] [address] [place], [address] Glucose [Mass/Vol] 95 mg/dL Normal 70-99 [facility] Comment on above: Performed By: #### L 100.0100, L501.4021, L500.2500 #### [facility] [address] [place], [address] Potassium [Moles/Vol] 4.3 mmol/L Normal 3.3-5.1 [facility] Comment on above: Performed By: #### L 100.0100, L501.4021, L500.2500 #### [facility] [address] [place], [address] Sodium [Moles/Vol] 137 mmol/L Normal 133-145 [facility] Comment on above: Performed By: #### L 100.0100, L501.4021, L500.2500 #### [facility] [address] [place], [address] Urea nitrogen [Mass/Vol] 32 mg/dL High 4-19 [facility] Comment on above: Performed By: #### L 100.0100, L501.4021, L500.2500 #### [facility] [address] [place], [address] Basophil percentageOrdered B y: Kyler Sultana on 03-18-2025 Basophils/100 WBC (Bld) 0.5 % 0-1 [facility] CBC W/Diff, Automatedon Absolute Lymph 1.88 X10 3/uL Normal 0.83-4.51 [facility] Comment on above: Performed By: #### L 100.0100, L501.4021, L500.2500 #### [facility] [address] [place], [address] Absolute Neut 6.5 X10 3/uL Normal 2.0-7.7 [facility] Comment on above: Performed By: #### L 100.0100, L501.4021, L500.2500 #### [facility] [address] [place], [address] Basophils/100 WBC (Bld) 0.5 % Normal 0-1 [facility] Comment on above: Performed By: #### L 100.0100, L501.4021, L500.2500 #### [facility] [address] [place], [address] Eosinophils/100 WBC (Bld) 1.8 % Normal 0-5 [facility] Comment on above: Performed By: #### L 100.0100, L501.4021, L500.2500 #### [facility] [address] [place], [address] Erythrocyte distribution width (RBC) [Ratio] 13.9 % Normal 11.6-14.6 [facility] Comment on above: Performed By: #### L 100.0100, L501.4021, L500.2500 #### [facility] [address] [place], [address] Hematocrit (Bld) [Volume fraction] 29.1 % Low 40-54 [facility] Comment on above: Performed By: #### L 100.0100, L501.4021, L500.2500 #### [facility] [address] [place], [address] Hemoglobin (Bld) [Mass/Vol] 9.4 g/dL Low 13.0-16.5 [facility] Comment on above: Performed By: #### L 100.0100, L501.4021, L500.2500 #### [facility] [address] [place], [address] IG% 0.800 Normal 0.0-0.9 [facility] Comment on above: Result Comment: IG% - Immature Granulocytes (promyelocytes, myelocytes and metamyelocytes) > 1% indicates that a LEFT SHIFT is Present. Performed By: #### L 100.0100, L501.4021, L500.2500 #### [facility] [address] [place], [address] Lymphocytes/100 WBC (Bld) 19.6 % Normal 19-41 [facility] Comment on above: Performed By: #### L 100.0100, L501.4021, L500.2500 #### [facility] [address] [place], [address] MCH (RBC) [Entitic mass] 31.5 pg Normal 27.0-32.0 [facility] Comment on above: Performed By: #### L 100.0100, L501.4021, L500.2500 #### [facility] [address] [place], [address] MCHC (RBC) [Mass/Vol] 32.3 g/dL Normal 32-36 [facility] Comment on above: Performed By: #### L 100.0100, L501.4021, L500.2500 #### [facility] [address] [place], [address] MCV (RBC) [Entitic vol] 97.7 fL High 80-94 [facility] Comment on above: Performed By: #### L 100.0100, L501.4021, L500.2500 #### [facility] [address] [place], [address] Monocytes/100 WBC (Bld) 9.1 % Normal 0-[address] [facility] Comment on above: Performed By: #### L 100.0100, L501.4021, L500.2500 #### [facility] [address] [place], [address] Neutrophils/100 WBC (Bld) 68.2 % Normal 47-70 [facility] Comment on above: Performed By: #### L 100.0100, L501.4021, L500.2500 #### [facility] [address] [place], [address] Nucleated RBC (Bld) [#/Vol] 0 10*3/uL Normal 0-5 [facility] Comment on above: Performed By: #### L 100.0100, L501.4021, L500.2500 #### [facility] [address] [place], [address] Platelet mean volume (Bld) [Entitic vol] 10.4 fL Normal 6.2-12.0 [facility] Comment on above: Performed By: #### L 100.0100, L501.4021, L500.2500 #### [facility] [address] [place], [address] Platelets (Bld) [#/Vol] 271 10*3/uL Normal 150-450 [facility] Comment on above: Performed By: #### L 100.0100, L501.4021, L500.2500 #### [facility] [address] [place], [address] RBC (Bld) [#/Vol] 2.98 10*6/uL Low 4.6-6.2 [facility] Comment on above: Performed By: #### L 100.0100, L501.4021, L500.2500 #### [facility] [address] [place], [address] RDW SD 49.7 fl High 35.1-43.9 [facility] Comment on above: Performed By: #### L 100.0100, L501.4021, L500.2500 #### [facility] [address] [place], [address] WBC (Bld) [#/Vol] 9.6 10*3/uL Normal 4.4-11.0 [facility] Comment on above: Performed By: #### L 100.0100, L501.4021, L500.2500 #### [facility] [address] [place], [address] Carbon dioxide, total [Moles /volume] in Central venous bloodOrdered By: Kyler Sultana on 03-18-2025 CO2 [Moles/Vol] 18.6 mmol/L Low 21.0-32.0 [facility] Chest PA and Lateralon 03-18 Chest PA and Lateral [facility] Imaging Services [address] [place] [address] Chest PA and Lateral MR#: [id number] Acct: [id number] Name: ALEJANDRO MOTT Rep #: [id number] : 1945 M 79 From: Ashanti Barksdale nd, MD PCP: [facility] Status: [facility] ER Study: Chest PA and Lateral Date of Exam: 03/18/25 Exam# [id number] Ordering Dr: Kyler Sultana MD PROCEDURE: CHEST PA AND LATERAL 03/18/2025 REASON FOR EXAM: SOB TECHNIQUE: Frontal and lateral views of the chest. COMPARISON: Chest radiograph 08/24/2018. FINDINGS: Hardware: Prior median sternotomy and CABG. Heart: The heart size is normal. Mediastinum: The mediastinal contour is stable. Lungs: Low lung volumes. Bibasilar atelectasis/scarring. No focal consolidation, pleural effusion or pneumothorax. Bones: Degenerative changes are identified within the thoracic spine. RAD/Chest PA and Lateral IMPRESSION: NO ACUTE FINDINGS. Reading Location: [facility] CC: Dr. Kyler Sultana MD; [facility] Track Grinder: Signed Normal [facility] Chloride assayOrdered By: Domonique Sultana on 03-18-2025 Chloride [Moles/Vol] 103 mmol/L 98-108 [facility] Emergency Department Summary on 03-18-2025 Emergency Department Summary [facility] Medical Records Department [address] [place] [address] Emergency Department Summary 03/18/25 MR#: [id number] Acct: [id number] Name: ALEJANDRO MOTT Rep #: [id number] : 1945 79 From: Kyler Sultana MD PCP: [facility] Status:REG ER Location: ED HPI History of Present Illness Chief Complaint: Shortness of Breath Informant: patient, family and EMS Narrative Narrative: 79-year-old male start feeling lightheaded, blurry vision, near syncopal but did not lose consciousness. Family states that he appeared dyspneic at the time to the point where they gave him a puff from one of his inhalers. The patient states he does not recall feeling dyspneic. He denies having any chest discomfort or palpitations. He has a history of A-fib and does not feel when he goes into it. He states right now he feels fine. He was just recently admitted to the [facility] in [place] for a hiatal hernia repair which ended up also requiring a repair of perforated bowel and resection of a piece of bowel. He was discharged from the hospital 2 weeks ago and has been doing pretty well since then. Has been eating and drinking. Trying to drink fluids and states he always has a water bottle with him. No pain or swelling in one of his legs. No history of DVT or PE. He is anticoagulated on apixaban. states when he was feeling poorly she checked his blood pressure and it was in the 60s. 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 Chronic atrial fibrillation Obstructive sleep apnea Former tobacco use Peripheral vascular disease Diabetes mellitus, type II Hyperlipidemia Encounter for monitoring sotalol therapy Right bundle branch block Hypertension Home Medications ???Medication ???Instructions ???Recorded ???Last Taken ???Type acetaminophen 325 mg tablet 975 mg PO Q8H PRN PRN Pain 8 Unknown History albuterol sulfate 90 mcg/actuation 2 puff inhalation Q4H PRN PRN So b 08/23/18 Unknown History aerosol inhaler /Or Wheezing apixaban 5 mg tablet 5 mg PO BID blood thinner 08/23/18 08/23/18 08:00 History aspirin 81 mg chewable tablet 81 mg PO DAILY@0800 health 8 08/23/18 History maintenance atorvastatin 40 mg tablet 20 mg PO QHS cholesterol 08/23/18 08/23/18 History levothyroxine 112 mcg tablet 112 mcg PO DAILY thyroid 08/23/18 08/23/18 History melatonin-pyridoxine HCl (vitamin 1 ea PO QHS PRN Sleep 08/23/18 History B6) 3 mg-10 mg tablet omeprazole 20 mg capsule,delayed 40 mg PO DAILY gerd 08/23/1808/23 History release sotalol 80 mg tablet 40 mg PO BID heart 08/23/18 History trospium 20 mg tablet 20 mg PO BID overactive bladder 08/23/18 08:00 History cetirizine 10 mg tablet 10 mg PO DAILY 04/17/19 Unknown Hi story ferrous sulfate 325 mg (65 mg 325 mg PO .COMPLEX 04/17/19 Unknow n History iron) tablet fluticasone propionate 50 2 spray intranasal DAILY 04/17/19 Unknown History mcg/actuation nasal spray,suspension nitroglycerin 0.4 mg sublingual 0.4 mg sublingual Q5-15M 04/17/19 Unknown History tablet omega-3 fatty acids 1,000 mg 1,000 mg PO BID 04/17/19 Unknown H istory capsule (Fish Oil Concentrate) phenazopyridine 200 mg tablet 200 mg PO TID 04/17/19 Unknown His tory amiodarone 200 mg tablet 200 mg PO DAILY 03/18/25 Unknown H istory amlodipine 10 mg tablet 10 mg PO DAILY 03/18/25 Unknown Hi story carboxymethylcellulose sodium 1 % 1 drp ophthalmic (eye) BID Unknown History eye drops (Artificial Tears (carboxymethylcellulos e)) duloxetine 30 mg capsule,delayed 30 mg PO QHS 03/18/25 Unknown Hist ory release (Cymbalta) duloxetine 30 mg capsule,delayed 60 mg PO BREAKFAST 03/18/25 Unknow n History release (Cymbalta) hydroxyzine HCl 10 mg tablet 20 mg PO DAILY PRN anxiety 5 Unknown History losartan 25 mg tablet 50 mg PO DAILY 03/18/25 Unknown Hi story olodaterol 2.5 mcg/actuation mist 2 inh inhalation DAILY 03/18/25 U nknown History for inhalation sennosides 8.6 mg-docusate sodium 2 tab-cap PO QHS 03/18/25 Unknown History 50 mg tablet tamsulosin 0.4 mg capsule 0.4 mg PO QHS 03/18/25 Unknown His tory trazodone 100 mg tablet 100 mg PO QHS 03/18/25 Unknown His tory Allergy/AdvReac Type Severity Reaction Status Date / Time No Known Allergies Allergy Verified 03/18/25 21:32 Family History Mother , age 54 Myocardial infarction CAD (coronary artery disease) Scarlet fever Father , Age 70 CAD (coronary arter (more content not included)... Normal [facility] Eosinophil percentageOrdered By: Kyler Sultana on 03-18-2025 Eosinophils/100 WBC (Bld) 1.8 % 0-5 [facility] Erythrocyte distribution wid th ratioOrdered By: Kyler Sultana on 03-18-2025 Erythrocyte distribution width (RBC) [Ratio] 13.9 % 11.6-14.6 [facility] Erythrocyte distribution wid th standard deviationOrdered By: Kyler Sultana on 03-18-2025 Erythrocyte distribution width (RBC) [Ratio] 49.7 fl High 35.1-43.9 [facility] Glomerular filtration rate ( GFR) estimation/1.73 sq m using serum, plasma, or whole bOrdered By: Kyler Sultana on 03-18-2025 GFR/1.73 sq M.predicted among non-blacks MDRD (S/P/Bld) [Vol rate/Area] 48 mL/min/{1.73_m2} Low >60 [facility] Comment on above: mL/min/1.73m2 CKD-EP I Creatinine Equation (2020) Hematocrit Auto (Bld) [Volum e fraction]Ordered By: Kyler Sultana on 03-18-2025 Hematocrit (Bld) [Volume fraction] 29.1 % Low 40-54 [facility] Hemoglobin measurementOrdere d By: Kyler Sultana on 03-18-2025 Hemoglobin (Bld) [Mass/Vol] 9.4 g/dL Low 13.0-16.5 [facility] Immature granulocytes/100 WB C Auto (Bld)Ordered By: Kyler Sultana on 03-18-2025 Immature granulocytes/100 WBC (Bld) 0.800 % 0.0-0.9 [facility] Comment on above: IG% - Immature Granu locytes (promyelocytes, myelocytes and metamyelocytes) > 1% indicates that a LEFT SHIFT is Present. L501.4021on 03-18-2025 Trop T High Sen 37 ng/L High <=22 [facility] Comment on above: Performed By: #### L 100.0100, L501.4021, L500.2500 #### [facility] [address] [place], [address] MCV (mean corpuscular volume ) determinationOrdered By: Kyler Sultana on 03-18-2025 MCV (RBC) [Entitic vol] 97.7 fL High 80-94 [facility] Mean corpuscular hemoglobin (MCH) determinationOrdered By: Kyler Sultana on 03-18-2025 MCH (RBC) [Entitic mass] 31.5 pg 27.0-32.0 [facility] Mean corpuscular hemoglobin concentration (MCHC) determinationOrdered By: Kyler Sultana on 03-18-2025 MCHC (RBC) [Mass/Vol] 32.3 g/dL 32-36 [facility] Mean platelet volume determi nationOrdered By: Kyler Sultana on 03-18-2025 Platelet mean volume (Bld) [Entitic vol] 10.4 fL 6.2-12.0 [facility] Monocyte percentageOrdered B y: Kyler Sultana on 03-18-2025 Monocytes/100 WBC (Bld) 9.1 % 0-10 [facility] Neutrophil percentageOrdered By: Kyler Sultana on 03-18-2025 Neutrophils/100 WBC (Bld) 68.2 % 47-70 [facility] Nucleated red blood cell per centageOrdered By: Kyler Sultana on 03-18-2025 Nucleated RBC/100 WBC (Bld) [Ratio] 0 % 0-5 [facility] Platelet countOrdered By: Domonique Sultana on 03-18-2025 Platelets (Bld) [#/Vol] 271 10*3/uL 150-450 [facility] Potassium measurement (mass/ volume)Ordered By: Kyler Sultana on 03-18-2025 Potassium (Unsp spec) [Mass/Vol] 4.3 mmol/L 3.3-5.1 [facility] RBC Auto (Bld) [#/Vol]Ordere d By: Kyler Sultana on 03-18-2025 RBC (Bld) [#/Vol] 2.98 10*6/uL Low 4.6-6.2 [facility] Serum creatinine measurement (mass/volume)Ordered By: Kyler Sultana on 03-18-2025 Creatinine [Mass/Vol] 1.48 mg/dL High 0.70-1.20 [facility] Serum glucose measurement (m ass/volume)Ordered By: Kyler Sultana on 03-18-2025 Glucose [Mass/Vol] 95 mg/dL 70-99 [facility] Serum or plasma calcium messi urement (mass/volume)Ordered By: Kyler Sultana on 03-18-2025 Calcium [Mass/Vol] 9.2 mg/dL 7.6-11.0 [facility] Serum or plasma urea nitroge n measurement (mass/volume)Ordered By: Kyler Sultana on 03-18-2025 Urea nitrogen [Mass/Vol] 32 mg/dL High 4-19 [facility] Sodium levelOrdered By: Grover Sultana on 03-18-2025 Sodium [Moles/Vol] 137 mmol/L 133-145 [facility] Stool gastrointestinal hemog lobin detection by immunologic methodOrdered By: Kyler Sultana on 03-18-2025 Lower GI hemoglobin IA Ql (Stl) Positive Abnormal [facility] Troponin T.cardiac [Mass/vol ume] in Serum or Plasma by High sensitivity methodOrdered By: Kyler Sultana on 03-18-2025 Troponin T.cardiac High sensitivity method [Mass/Vol] 30 ng/L High <22 [facility] Troponin T.cardiac High sensitivity method [Mass/Vol] 37 ng/L High <22 [facility] White blood cell (WBC) count Ordered By: Kyler Sultana on 03-18-2025 WBC (Bld) [#/Vol] 9.6 10*3/uL 4.4-11.0 [facility] TECHNICAL ONLY APon 01-16-20 CASE REPORT Normal [facility] Comment on above: Order Comment: Speci men Type: FORMALIN-FIXED PARAFFIN-EMBEDDED TISSUE SPECIMEN Ordering Facility: [facility] Address: ATTN: [place] [address] Result Comment: Surg [facility] Pathology Report Case: [id number] Authorizing Provider: Catherine Valenzuela MD Collected: 01/15/2025 12:59 PM Ordering Location: [facility] Received: 01/15/2025 12:58 PM [facility] Pathologist: Donovan Reed MD Specimen: Block(s) and/or Slide(s), 1 BLOCK ([id number]) Performed By: #### L [id number] #### [facility] CLIA [id number] [address] [place] [address] STATES OF [place] TECH ONLY Normal [facility] Comment on above: Order Comment: Speci men Type: FORMALIN-FIXED PARAFFIN-EMBEDDED TISSUE SPECIMEN Ordering Facility: [facility] Address: ATTN: [place] [address] Result Comment: Glenda cardenas is a list of requested stains performed and being returned to the client: A1-1 GWEN (Kenny Fernandez) A1-2 Control Return tracking number: [id number] at 1621 EDT Performed By: #### L [id number] #### [facility] CLIA [id number] [address] [place] [address] CNPNon 01-10-2024 CNPN Telephone (AGGENS4) ALEJANDRO MOTT ([id number]) 1945 M Date Time Provider Department 01/10/24 [facility] PROVIDER AGGENS4 During your visit today, we recorded the following information about you: Felecia Graham MA 01/10/2024 10:37 AM Signed Received referral from [facility] for Hiatal Hernia. Left voicemail [...] 20 mg by mouth twice daily. - Ygubq-[id number]-[id number]-EPA-Fish Oil (FISH OIL) 1,000 mg (120 mg-180 [...] Encounter Status:Closed by FELECIA GRAHAM on 01/10/[address] [facility] Absolute lymphocyte countOrd ered By: Dr. Jacques on 03-30-2023 Lymphocytes Auto (Unsp spec) [#/Vol] 1.13 10*3/uL 0.83-4.51 [facility] Basophil percentageOrdered B y: Dr. Jacques on 03-30-2023 Basophils/100 WBC (Bld) 0.6 % 0-1 [facility] Chloride [Moles/Vol] 103 mmol/L 98-107 [facility] Eosinophils/100 WBC (Bld) 4.4 % 0-5 [facility] Glucose [Mass/Vol] 126 mg/dL 74-106 [facility] Comment on above: Fasting Glucose resu lt greater than or equal to 126 mg/dL suggests DIABETES MELLITUS per A.D.A. criteria. Neutrophils (Bld) [#/Vol] 5.4 10*3/uL 2.0-7.7 [facility] Neutrophils/100 WBC (Bld) 70.0 % 47-70 [facility] Potassium [Moles/Vol] 4.3 mmol/L 3.5-5.1 [facility] Comment on above: Slight Hemolysis, Re sult may be falsely increased. Sodium [Moles/Vol] 136 mmol/L 136-145 [facility] WBC (Bld) [#/Vol] 7.8 10*3/uL 4.4-11.0 [facility] Blood erythrocytes count (nu mber/volume)Ordered By: Dr. Jacques on 03-30-2023 RBC (Bld) [#/Vol] 4.25 10*6/uL 4.6-6.2 [facility] Blood hemoglobin measurement (mass/volume)Ordered By: Dr. Jacques on 03-30-2023 Hemoglobin (Bld) [Mass/Vol] 13.6 g/dL 13.0-16.5 [facility] Blood lymphocytes/100 leukoc ytesOrdered By: Dr. Jacques on 03-30-2023 Lymphocytes/100 WBC (Bld) 14.6 % 19-41 [facility] Blood monocytes/100 leukocyt esOrdered By: Dr. Jacques on 03-30-2023 Monocytes/100 WBC (Bld) 9.8 % 0-10 [facility] Blood platelet mean volumeOr dered By: Dr. Jacques on 03-30-2023 Platelet mean volume (Bld) [Entitic vol] 10.6 fL 6.2-12.0 [facility] Determination of erythrocyte mean corpuscular volume (MCV)Ordered By: Dr. Jacques on 03-30-2023 MCV (RBC) [Entitic vol] 95.8 fL 80-94 [facility] Hematocrit Auto (Bld) [Volum e fraction]Ordered By: Dr. Jacques on 03-30-2023 Hematocrit (Bld) [Volume fraction] 40.7 % 40-54 [facility] Laboratory - Chemistry and C hemistry - challengeOrdered By: Dr. Jacques on 03-30-2023 CO2 [Moles/Vol] 29.0 mmol/L 21.0-32.0 [facility] Urea nitrogen/Creatinine [Mass ratio] 21.0 mg/mg 10-20 [facility] Laboratory - Hematology and Cell countsOrdered By: Dr. Jacques on 03-30-2023 Erythrocyte distribution width (RBC) [Entitic vol] 45.7 fL 35.1-43.9 [facility] Erythrocyte distribution width (RBC) [Ratio] 12.9 % 11.6-14.6 [facility] Immature granulocytes/100 WBC (Bld) 0.600 % 0.0-0.9 [facility] Comment on above: IG% - Immature Granu locytes (promyelocytes, myelocytes and metamyelocytes) > 1% indicates that a LEFT SHIFT is Present. MCH (RBC) [Entitic mass] 32.0 pg 27.0-32.0 [facility] Nucleated RBC/100 WBC (Bld) [Ratio] 0 % 0-5 [facility] MCHC Auto (RBC) [Mass/Vol]Or dered By: Dr. Jacques on 03-30-2023 MCHC (RBC) [Mass/Vol] 33.4 g/dL 32-36 [facility] No Panel InformationOrdered By: Dr. Jacques on 03-30-2023 Estimated Creatinine Clearance Calc 73.07 ml/min [facility] Estimated GFR (MDRD) Amer 112 mL/min >60 [facility] Comment on above: GFR Calc Estimated GFR (MDRD) Non-Af Amer 92 mL/min >60 [facility] Comment on above: Non- GFR Calc Platelets bldOrdered By: Dr. Jacques on 03-30-2023 Platelets (Bld) [#/Vol] 200 10*3/uL 150-450 [facility] Serum or plasma calcium msesi urement (mass/volume)Ordered By: Dr. Jacques on 03-30-2023 Calcium [Mass/Vol] 9.2 mg/dL 8.5-10.1 [facility] Serum or plasma creatinine m easurement (mass/volume)Ordered By: Dr. Jacques on 03-30-2023 Creatinine [Mass/Vol] 0.86 mg/dL 0.70-1.30 [facility] Comment on above: The validity of the calculated GFR & GFRAA in patients over 70 years has not been determined. Clinical correlation is essential. Serum or plasma urea nitroge n measurement (mass/volume)Ordered By: Dr. Jacques on 03-30-2023 Urea nitrogen [Mass/Vol] 18 mg/dL 7-18 [facility] Thin prep Papanicolaou smear with manual screeningOrdered By: Dr. Jacques on 03-30-2023 Thin prep Papanicolaou smear with manual screening 4 5-15 [facility] .Auto Diffon 08-23-2018 Ammonia mass conc (P) 0.50 10 3/mcL Normal 0.15-1.00 [facility] ([place]) Comment on above: Performed By: #### C ALANA HORN ANEU #### [address] [address] #### TROP, PBNP, BMP, GFR #### [address] [address] Basophils #/vol (Bld) 0.00 10 3/mcL Normal 0.00-0.19 [facility] ([place]) Comment on above: Performed By: #### C BCALANA ANEU #### [address] [address] #### TROP, PBNP, BMP, GFR #### [address] [address] Basophils/100 WBC (Bld) 0.5 % Normal 0.0-2.5 [facility] ([place]) Comment on above: Performed By: #### C BC, ADIFF, ANEU #### [place] [address] #### TROP, PBNP, BMP, GFR #### [address] [address] Eosinophils #/vol (Bld) 0.20 10 3/mcL Normal 0.00-0.40 [facility] ([place]) Comment on above: Performed By: #### C BC, ADIFF, ANEU #### [place] [address] #### TROP, PBNP, BMP, GFR #### [address] [address] Eosinophils/100 WBC (Bld) 2.8 % Normal 0.0-7.0 [facility] ([place]) Comment on above: Performed By: #### C BC, CHANCEIFF, ANEU #### [place] [address] #### TROP, PBNP, BMP, GFR #### [address] [address] Lymphocytes #/vol (Bld) 0.50 10 3/mcL Low 0.77-3.85 [facility] ([place]) Comment on above: Performed By: #### C BC, ADIFF, ANEU #### [place] [address] #### TROP, PBNP, BMP, GFR #### [address] [address] Lymphocytes/100 WBC (Bld) 7.1 % Low 10.0-50.0 [facility] ([place]) Comment on above: Performed By: #### C BC, ADIFF, ANEU #### [place] [address] #### TROP, PBNP, BMP, GFR #### [address] [address] Monocytes/100 WBC (Bld) 7.9 % Normal 1.7-13.0 [facility] ([place]) Comment on above: Performed By: #### C BC, ADIFF, ANEU #### [address] [address] #### TROP, PBNP, BMP, GFR #### [address] [address] Neutrophils/100 WBC (Bld) 81.7 % High 37.0-80.0 [facility] ([place]) Comment on above: Performed By: #### C BC, ADIFF, ANEU #### [address] [address] #### TROP, PBNP, BMP, GFR #### [address] [address] .GFRon 08-23-2018 GFR Non- 71 ml/min/1.73sqm Normal [facility] ([place]) Comment on above: Result Comment: GFR Population [...] By: #### C BC, ADIFF, ANEU #### [address] [address] #### TROP, PBNP, BMP, GFR #### [address] [address] GFR 86 ml/min/1.73sqm Normal [facility] ([place]) Comment on above: Result Comment: GFR Population [...] By: #### C BC, ADIFF, ANEU #### [place] [address] #### TROP, PBNP, BMP, GFR #### [place] [address] .NEUABSon 08-23-2018 Neutrophils #/vol (Bld) 5.60 10 3/mcL Normal 2.85-6.16 [facility] ([place]) Comment on above: Performed By: #### C BCCHANCEIFF, ANEU #### [place] [address] #### TROP, PBNP, BMP, GFR #### [place] [address] BMPon 08-23-2018 Calcium mass conc 9.0 mg/dL Normal 8.4-10.2 [facility] ([place]) Comment on above: Performed By: #### Soco BCCHANCEIFF, ANEU #### [place] [address] #### TROP, PBNP, BMP, GFR #### [place] [address] Chloride molar conc 100 mmol/L Normal 98-107 [facility] ([place]) Comment on above: Performed By: #### Soco BC ADIFF, ANEU #### [place] [address] #### TROP, PBNP, BMP, GFR #### [place] [address] CO2 molar conc 30 mmol/L Normal 23-31 [facility] ([place]) Comment on above: Performed By: #### C BC, ADIFF, ANEU #### [address] [address] #### TROP, PBNP, BMP, GFR #### [address] [address] Creatinine mass conc 1.03 mg/dL Normal 0.70-1.30 [facility] ([place]) Comment on above: Performed By: #### C BC, ADIFF, ANEU #### [place] [address] #### TROP, PBNP, BMP, GFR #### [place] [address] Electrolyte Balance 8.0 mEq/L Normal [facility] ([place]) Comment on above: Performed By: #### C BC, ADIFF, ANEU #### [place] [address] #### TROP, PBNP, BMP, GFR #### [place] [address] Glucose mass conc 115 mg/dL High 83-110 [facility] ([place]) Comment on above: Performed By: #### C BC, ADIFF, ANEU #### [place] [address] #### TROP, PBNP, BMP, GFR #### [address] [address] Potassium molar conc 4.3 mmol/L Normal 3.5-5.1 [facility] ([place]) Comment on above: Performed By: #### C BC, ADIFF, ANEU #### [address] [address] #### TROP, PBNP, BMP, GFR #### [place] [id number] Sodium molar conc 138 mmol/L Normal 136-145 [facility] ([place]) Comment on above: Performed By: #### C BC, ADIFF, ANEU #### [place] [address] #### TROP, PBNP, BMP, GFR #### [address] [address] Urea nitrogen mass conc 15 mg/dL Normal 7-18 [facility] ([place]) Comment on above: Performed By: #### C BC, ADIFF, ANEU #### [address] [address] #### TROP, PBNP, BMP, GFR #### [place] [address] Urea nitrogen/Creatinine mass ratio 15 ratio Normal 7-27 [facility] ([place]) Comment on above: Performed By: #### C BC, ADIFF, ANEU #### [place] [address] #### TROP, PBNP, BMP, GFR #### [place] [address] CBCon 08-23-2018 Erythrocyte distribution width Ratio (RBC) 16.3 % High 11.5-14.5 [facility] ([place]) Comment on above: Performed By: #### C BC, ADIFF, ANEU #### [place] [address] #### TROP, PBNP, BMP, GFR #### [place] [address] Hematocrit Volume Fraction (Bld) 36.5 % Low 42.0-52.0 [facility] ([place]) Comment on above: Performed By: #### C BC, ADIFF, ANEU #### [place] [address] #### TROP, PBNP, BMP, GFR #### [place] [address] Hemoglobin mass conc (Bld) 11.9 G/dL Low 14.0-18.0 [facility] ([place]) Comment on above: Performed By: #### C BC, ADIFF, ANEU #### [address] [address] #### TROP, PBNP, BMP, GFR #### [place] [address] MCH Entitic mass (RBC) 29.4 pg Normal 27.0-31.2 [facility] ([place]) Comment on above: Performed By: #### C BC, ADIFF, ANEU #### [place] [address] #### TROP, PBNP, BMP, GFR #### [place] [address] MCHC mass conc (RBC) 32.7 G/dL Normal 31.8-35.4 [facility] ([place]) Comment on above: Performed By: #### C BC, ADIFF, ANEU #### [place] [address] #### TROP, PBNP, BMP, GFR #### [place] [address] MCV Entitic volume (RBC) 89.8 fL Normal 80.0-94.0 [facility] ([place]) Comment on above: Performed By: #### C BC, ADIFF, ANEU #### [place] [address] #### TROP, PBNP, BMP, GFR #### [place] [address] Platelet mean volume Entitic volume (Bld) 8.3 fL Normal 7.4-10.4 [facility] ([place]) Comment on above: Performed By: #### C BC, ADIFF, ANEU #### [place] [address] #### TROP, PBNP, BMP, GFR #### [place] [address] Platelets #/vol (Bld) 202 10 3/mcL Normal 130-400 [facility] ([place]) Comment on above: Performed By: #### C BC, ADIFF, ANEU #### [place] [address] #### TROP, PBNP, BMP, GFR #### [place] [address] RBC #/vol (Bld) 4.06 10 6/mcL Normal 4.04-6.13 On license of [facility] ([place]) Comment on above: Performed By: #### C BC, ADIFF, ANEU #### [place] [address] [place], [place] [address] #### TROP, PBNP, BMP, GFR #### [place] [id number] [place] [address] WBC #/vol (Bld) 6.80 10 3/mcL Normal 4.60-10.80 On license of [facility] ([place]) Comment on above: Performed By: #### C BC, ADIFF, ANEU #### [place] [address] [place], [place] [address] #### TROP, PBNP, BMP, GFR #### [address] [address] [address] ANGIOGRAPHY CHEST W/CONTR Lane[place] 08-23-2018 CT [...] PM Sign Date: 08/23/2018 3:02:43 PM Normal [facility] ([place]) PBNPon 08-23-2018 Natriuretic peptide B mass conc (Bld) 1334 pg/mL High 0-125 [facility] ([place]) Comment on above: Result Comment: NT-p roBNP results of less than 300 pg/mL effectively rules out acute congestive heart failure with 99% negative predictive value. Performed By: #### C BCALANA ANEU #### [place] [address] #### TROP, PBNP, BMP, GFR #### [place] [address] TROPon 08-23-2018 Troponin I.cardiac mass conc 0.172 ng/mL Critically abnormal 0.000-0.040 [facility] ([place]) Comment on above: Result Comment: Trop onin I reference range: 0.00-0.040 ng/mL Negative and non-diagnostic. >0.040 ng/mL Consistent with cardiac damage, increased clinical risk and possibility of myocardial infarction. Serial measurements, a rise & fall in test results, clinical history, appropriate symptoms and/or ECG changes may help assess possibility of IN. *Other non-acute coronary syndrome conditions such as CHF, myocarditis, pulmonary emboli, sepsis and cardiac surgery could result in myocardial damage and increased troponin levels. Performed By: #### C BCALANA, ANEU #### [place] [address] #### TROP, PBNP, BMP, GFR #### [address] [address] XR CHEST 2 VIEWSon 8 XR CHEST [...] PM Sign Date: 08/23/2018 1:58:43 PM Normal [facility] ([place]) Vital Signs Date Time Vital Sign Value Performing Clinician Faci lity 03-19-2025 07:21-0400 Body temperature 98.7 [degF] [facility] 03-19-2025 07:21-0400 Diastolic blood pressure 63 mm[Hg] [facility] 03-19-2025 07:21-0400 Heart rate 73 /min [facility] 03-19-2025 07:21-0400 Respiratory rate 20 /min [facility] 03-19-2025 07:21-0400 SaO2% (BldA) [Mass fraction] 95 % [facility] 03-19-2025 07:21-0400 Systolic blood pressure 114 mm[Hg] [facility] 03-18-2025 21:13-0400 Body height 172.72 cm [facility] 03-18-2025 21:13-0400 Body mass index (BMI) [Ratio] 25.4 kg/m2 [facility] 03-18-2025 21:13-0400 Body weight 75.9 kg [facility] 01-08-2024 12:42-0400 Body temperature 97.3 [degF] [facility] 01-08-2024 12:42-0400 Diastolic blood pressure 94 mm[Hg] [facility] 01-08-2024 12:42-0400 Heart rate 94 /min [facility] 01-08-2024 12:42-0400 Respiratory rate 16 /min [facility] 01-08-2024 12:42-0400 SaO2% (BldA) [Mass fraction] 97 % [facility] 01-08-2024 12:42-0400 Systolic blood pressure 155 mm[Hg] [facility] 01-08-2024 11:10-0400 Body height 170.18 cm [facility] 01-08-2024 11:10-0400 Body mass index (BMI) [Ratio] 28.6 kg/m2 [facility] 01-08-2024 11:10-0400 Body weight 82.96 kg [facility] 03-30-2023 16:29-0400 Diastolic blood pressure 89 mm[Hg] [facility] 03-30-2023 16:29-0400 Heart rate 87 /min [facility] 03-30-2023 16:29-0400 Respiratory rate 14 /min [facility] 03-30-2023 16:29-0400 SaO2% (BldA) [Mass fraction] 95 % [facility] 03-30-2023 16:29-0400 Systolic blood pressure 149 mm[Hg] [facility] 03-30-2023 12:12-0400 Body height 175.26 cm [facility] 03-30-2023 12:12-0400 Body mass index (BMI) [Ratio] 31.1 kg/m2 [facility] 03-30-2023 12:12-0400 Body temperature 96.8 [degF] [facility] 03-30-2023 12:12-0400 Body weight 95.7 kg [facility] Encounters Encounter Date Encounter Type Care Provider Facility Start: 03-18-2025 End: 03-19-2025 Emergency department patient visit [facility]Emergency Department Work Phone: Start: 01-10-2024 Telephone encounter [facility] Provider NAGI [facility] Comment on above: External Referrals/r esources Start: 01-08-2024 Non-patient / Non-visit [facility] Start: 01-08-2024 End: 01-08-2024 Emergency department patient visit [facility] Work Phone: Start: 03-30-2023 Non-patient / Non-visit [facility] Start: 03-30-2023 End: 03-30-2023 Emergency department patient visit [facility] Start: 08-23-2018 End: 08-23-2018 Emergency department patient visit [facility] Facility:B Procedures Date Procedure Procedure Detail Performing Clinician Start: 03-19-2025 Computed tomography of abdomen and pelvis with intravenous contrast [facility] Start: 03-18-2025 X-ray of chest, PA a nd lateral views [facility] Start: 03-18-2025 Estimated creatinine clearance [facility] Start: 03-18-2025 Measurement of occul t blood in stool specimen using immunoassay [facility] Start: 03-30-2023 CT of abdominal aort a with contrast [facility] Start: 10-30-1993 History of coronary artery bypass grafting S/P CABG x 5 [facility] Comment on above: CLAIRE to LAD, SVG to high lateral and lateral CX; SVG to the posterolateral CX of the PDA of RCA per Dr. Gongora @ [facility] Plan of Treatment Date Care Activity Detail Author Start: 03-19-2025 [facility] Start: 03-18-2025 [facility] Start: 06-11-2024 Influenza vaccination Influenza Vaccine (Season Ended) [facility] Start: 01-08-2024 Esophagogastroduodenoscopy EGD (Not Applicable) [facility] Start: 01-08-2024 [facility] Start: 10-11-2023 Advance Directive Discussion Advance Directive Discussion [facility] Start: 10-11-2023 Depression Assessment Depression Assessment [facility] Start: 06-11-2023 Covid-19 Vaccine ( season) Covid-19 Vaccine ( season) [facility] Start: 08-11-2016 Diabetes Screening Diabetes Screening [facility] Start: 2011 Pneumococcal Vaccine: 65+ (1 of 1 - PCV) Pneumococcal Vaccine: 65+ (1 of 1 - PCV) [facility] Start: 07-03-2008 Urine microalbumin profile DTaP,Tdap,Td Vaccine (2 - Tdap) [facility] Start: 2006 RSV Vaccine (1 - 1-dose 60+ series) RSV Vaccine (1 - 1-dose 60+ series) [facility] Start: 1996 Shingrix Vaccine (1 of 2) Shingrix Vaccine (1 of 2) [facility] Start: 1964 Hepatitis C screening Hepatitis C Screening [facility] Patient Education Arterial Occlu leandro Acute ED Peripheral Artery Disease (PAD) [facility] Work Phone: Patient referral [facility] Work Phone: Immunizations Immunization Date Immunization Notes Care Provider Fa cili 07-12-2018 Influenza virus vaccine [facility] 07-12-2018 influenza virus vacc ine, unspecified formulation [facility] Provider [facility] Payers Date Payer Category Payer Self-pay [id number] 2025 Self-pay [id number] 2021 Private Health Insurance [facility] [employer] [id number] 2021-Present [phone] [address] [place] [address] PPO [id number] 2017 Medicare [employer]NA MEDICARE HU[employer] MEDICARE PPO [id number] 2017-Present [phone] [address] [address] [place] [address] PPO [id number] 2017 Unknown [id number] 1945 Unknown [id number] Medicare [employer] MEDICARE PPO [id number] Unknown [id number] Social History Date Type Detail Facility Start: 03-30-2023 End: 01-08-2024 Tobacco smoking status [facility] Unknown if ever smoked [facility] Start: 02-07-2021 Cigarettes [facility] Start: 1945 Sex Assigned At Male [facility] Start: 04-28-2018 End: 03-18-2025 Tobacco smoking status NHIS Ex-smoker [facility] End: 11-06-1993 History of tobacco use Current smoker [facility] End: 11-06-1993 History of tobacco use Cigarette Smoker [facility] Start: 04-28-2018 End: 09-17-2020 Cigarettes smoked current (pack per day) - Reported 1 [facility] Start: 04-28-2018 Tobacco use and exposure Smokeless tobacco non-user [facility] Start: 08-29-2018 Alcohol intake Current drinke r of alcohol (finding) [facility] Start: 08-29-2018 End: 09-17-2020 Tobacco use panel [facility] National Score (1-10 0), lower number is lower risk Not on file [facility] Start: 04-28-2018 Alcohol [facility] Start: 1945 Sex Assigned At Not on file C [facility] Mental Status Date Assessment Result Facility 01-08-2024 Cognitive function Level Of Cons ciousness Awake;Alert;Appropriate;Follow s Commands [facility] Work Phone: Discharge summary 03-19-2025 Note Date & Type Note Facility 03-19-2025 Discharge summary Note Date/Time March 19, 2025 3:33a m [facility] Medical Records Department [address] [place] [address] Emergency Department Summary 03/18/25 MR#: [id number] Acct: [id number] Name: ALEJANDRO MOTT Rep #:[id number] : 1945 79 From: Kyler Sultana MD PCP: [facility] Status:REG ER Location: ED HPI History of Present Illness Chief Complaint: Shortness of Breath Informant: patient, family and EMS Narrative Narrative: 79-year-old male start feeling lightheaded, blurry vision, near syncopal but didnot lose consciousness. Family states that he appeared dyspneic at the time to the point where they gave him a puff from one of his inhalers. The patient states he does not recall feeling dyspneic. He denies having any chest discomfort or palpitations. He has a history of A-fib and does not feel when hegoes into it. He states right now he feels fine. He was just recently [facility] the [facility] [place] for a hiatal hernia repair which ended up also requiring a repair of perforated bowel and resection of a piece of bowel. He was discharged from the hospital 2 weeks ago and has been doing pretty well since then. Has been eating and drinking. Trying to drink fluids and states [facility] has a water bottle with him. No pain or swelling in one of his legs. Nohistory of DVT or PE. He is anticoagulated on apixaban. states when he was feeling poorly she checked his blood pressure and it wasin the 60s. 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 Chronic atrial fibrillation Obstructive sleep apnea Former tobacco use Peripheral vascular disease Diabetes mellitus, type II Hyperlipidemia Encounter for monitoring sotalol therapy Right bundle branch block Hypertension Home Medications ?Medication ?Instructions ?Recorded ?Last Taken ?Type acetaminophen 325 mg tablet 975 mg PO Q8H PRN PRN Pain 08/23/18 Unknown History albuterol sulfate 90 mcg/actuation 2 puff inhalation Q 4H PRN PRN Sob 08/23/18 Unknown History aerosol inhaler &/Or Wheezing apixaban 5 mg tablet 5 mg PO BID blood thinner 08/23/18 08:00 History aspirin 81 mg chewable tablet 81 mg PO DAILY@0800 heal th 08/23/18 08/23/18 History maintenance atorvastatin 40 mg tablet 20 mg PO QHS cholesterol 08/23/18 History levothyroxine 112 mcg tablet 112 mcg PO DAILY thyroid 08/23/18 08/23/18 History melatonin-pyridoxine HCl (vitamin 1 ea PO QHS PRN Slee p 08/23/18 08/22/18 History B6) 3 mg-10 mg tablet omeprazole 20 mg capsule,delayed 40 mg PO DAILY gerd 1 10/23/17 08/23/18 History release sotalol 80 mg tablet 40 mg PO BID heart 08/23/18 08/22/18 History trospium 20 mg tablet 20 mg PO BID overactive blad stevie 08/23/18 08/23/18 08:00 History cetirizine 10 mg tablet 10 mg PO DAILY 04/17/19 Unkn own History ferrous sulfate 325 mg (65 mg 325 mg PO .COMPLEX 04/17 Unknown History iron) tablet fluticasone propionate 50 2 spray intranasal DAILY 05/29 Unknown History mcg/actuation nasal spray,suspension nitroglycerin 0.4 mg sublingual 0.4 mg sublingual Q5-1 5M 04/17/19 Unknown History tablet omega-3 fatty acids 1,000 mg 1,000 mg PO BID 04/17/19 Unknown History capsule (Fish Oil Concentrate) phenazopyridine 200 mg tablet 200 mg PO TID 04/17/19 U nknown History amiodarone 200 mg tablet 200 mg PO DAILY 03/18/25 Unk nown History amlodipine 10 mg tablet 10 mg PO DAILY 03/18/25 Unkn own History carboxymethylcellulose sodium 1 % 1 drp ophthalmic (ey e) BID 03/18/25 Unknown History eye drops (Artificial Tears (carboxymethylcellulose)) duloxetine 30 mg capsule,delayed 30 mg PO QHS 03/18/25 Unknown History release (Cymbalta) duloxetine 30 mg capsule,delayed 60 mg PO BREAKFAST Unknown History release (Cymbalta) hydroxyzine HCl 10 mg tablet 20 mg PO DAILY PRN anxiet y 03/18/25 Unknown History losartan 25 mg tablet 50 mg PO DAILY 03/18/25 Unkn own History olodaterol 2.5 mcg/actuation mist 2 inh inhalation AGGIE LY 03/18/25 Unknown History for inhalation sennosides 8.6 mg-docusate sodium 2 tab-cap PO QHS 06/04 Unknown History 50 mg tablet tamsulosin 0.4 mg capsule 0.4 mg PO QHS 03/18/25 Unkno wn History trazodone 100 mg tablet 100 mg PO QHS 03/18/25 Unkno wn History Allergy/AdvReac Type Severity Reaction Status Date / Time No Known Allergies Allergy Verified 03/18/25 21:32 Family History Mother , age 54 Myocardial infarction CAD (coronary artery disease) Scarlet fever Father , Age 70 CAD (coronary artery disease) Myocardial infarction Sudden cardiac ETOH abuse Tobacco abuse Surgical History S/P percutaneous endoscopic gastrostomy (PEG) tube placement History of colectomy History of repair of hiatal hernia History of carotid endarterectomy Hx of CABG 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 History of cholecystectomy History of left heart catheterization (05/11/13) 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) Social History (Updated 03/18/25 @ 21:26 by Anyi Lazo) household members: spouse current occupational status: retired Smoking Status: Former smoker ROS ROS ED Constitutional Constitutional ED: Denies chills or fever(s) Eyes Eyes: Reports blurry vision bilateral (When felt lightheaded; resolved now); Denies change in vision or diplopia ENT ENT ED: Denies rhinorrhea or sore throat Cardiovascular Cardiovascular: Reports as per HPI and lightheadedness; Denies chest pain, leg edema, palpitations or syncope Respiratory/Chest Respiratory/Chest: Reports dyspnea; Denies cough Gastrointestinal Gastrointestinal: Denies abdominal pain, diarrhea, nausea or vomiting Genitourinary Genitourinary ED: Denies dysuria or hematuria Musculoskeletal Musculoskeletal: Denies back pain or neck pain Integumentary Denies abscess or rash Neurologic Neurologic: Denies headache(s), paresthesias or weakness Psychiatric Psychiatric: Denies anxiety or suicidal thoughts EXAM Physical Exam Const Vital Signs: 03/18/25 21:13 03/18/25 21:32 03/18/25 21:56 Temperature 98.1 F Temperature Source Oral Pulse Rate 80 Pulse Rate [Lying] Pulse Rate [Sitting (for 1 minute prior to obtaining)] Pulse Rate [Standing (for 1 minute prior to obtaining)] Respiratory Rate 28 H Respiratory Effort Respiratory Pattern Blood Pressure 113/66 Blood Pressure [Lying] Blood Pressure [Sitting (for 1 minute prior to obtaining)] Blood Pressure [Standing (for 1 minute prior to obtaining)] Blood Pressure Mean 81 Blood Pressure Mean [Lying] Blood Pressure Mean [Sitting (for 1 minute prior to obtaining)] Blood Pressure Mean [Standing (for 1 minute prior to obtaining)] Pulse Ox 100 100 Oxygen Delivery Method Room Air Room Air Room Air 03/18/25 21:56 03/18/25 22:21 03/18/25 23:00 Temperature 98.1 F 98.3 F Temperature Source Oral Oral Pulse Rate 80 76 Pulse Rate [Lying] Pulse Rate [Sitting (for 1 minute prior to obtaining)] Pulse Rate [Standing (for 1 minute prior to obtaining)] Respiratory Rate 18 20 H Respiratory Effort Short of Breath Respiratory Pattern Tachypnea Blood Pressure 139/67 H 133/67 H Blood Pressure [Lying] Blood Pressure [Sitting (for 1 minute prior to obtaining)] Blood Pressure [Standing (for 1 minute prior to obtaining)] Blood Pressure Mean 91 89 Blood Pressure Mean [Lying] Blood Pressure Mean [Sitting (for 1 minute prior to obtaining)] Blood Pressure Mean [Standing (for 1 minute prior to obtaining)] Pulse Ox 100 100 Oxygen Delivery Method Room Air Room Air Room Air 03/19/25 00:07 Temperature Temperature Source Pulse Rate Pulse Rate [Lying] 79 Pulse Rate [Sitting (for 1 minute prior to obtaining)] 90 Pulse Rate [Standing (for 1 minute prior to obtaining)] 95 Respiratory Rate Respiratory Effort Respiratory Pattern Blood Pressure Blood Pressure [Lying] 131/67 H Blood Pressure [Sitting (for 1 minute prior to obtaining)] 95/59 L Blood Pressure [Standing (for 1 minute prior to obtaining)] 77/51 L Blood Pressure Mean Blood Pressure Mean [Lying] 88 Blood Pressure Mean [Sitting (for 1 minute prior to obtaining)] 71 Blood Pressure Mean [Standing (for 1 minute prior to obtaining)] 59 Pulse Ox Oxygen Delivery Method Positive well nourished and well developed General Appearance ED: well developed and NAD HEENT Reports moist mucous membranes normocephalic and atraumatic Eyes PERRL and EOMs intact bilaterally Neck full ROM, supple and no meningeal signs Resp normal respiratory effort and clear to auscultation bilaterally Cardio regular rate, regular rhythm and no murmurs Rate: Negative for tachycardic GI non-tender and non-distended GI Narrative: Surgical incisions with dressings clean dry and intact no tenderness. G-tube site benign. Beneath the dressings, he has an abdominal incision that is healing by secondary intent with granulation tissue present, no obvious sign of infection. Auscultation: normoactive bowel sounds Palpation: soft Back/Spine no CVA tenderness General Back: other FROM Extremity normal to inspection General Extremety ED: Negative for edema, pulses abnormal or tenderness General Extremity: Negative for edema or pulses abnormal Neuro oriented x3, CN's II-XII intact bilaterally and no sensory deficits noted Neuro Narrative: No focal neurologic deficits. Alert and oriented x 3. Normal speech. Sensorium / Orientation: awake and alert Motor Exam: strength 5/5 throughout Psych mental status grossly normal Skin no rashes or lesions noted and no wounds MDM MDM MDM Narrative Medical decision making narrative: EKG is unchanged shows no acute injury pattern. Looking at his blood counts, his hemoglobin is 9.4. The last 1 I have is from several years ago, was in the 13 range. In conjunction with this, his BUN is 32 with a creatinine of 1.48 both of which are elevated compared with his priors as well. And considering the possibility of GI bleed causing these abnormalities, we did a Hemoccult. His stool was brown, he has had no symptoms of melena or bright red blood per rectum, but the Hemoccult is positive. He is anticoagulated. We then did orthostatics, and he is very positive with his blood pressure going from 130s lying to 77/51 while standing. He did not feel near syncopal, this is after 500cc bolus of IV fluids. Additionally his troponin is slightly elevated at 37 this is nonspecific, will be repeated in 2 hours but given all of this I think he should be admitted for further care. Since he was just discharged from the [place], I think he should be transferred there if they have a bed. states he had an accidental fall this past week and bruised his back, and thinks his abdomen is more protuberant than normal. Going to add a CT abd/pelv here [facility] for [facility] results and final disposition. Lab Data Attestation: I reviewed the patient's lab results. Labs: Laboratory Results - last 24 hr 03/18/25 03/18/25 21:40 23:50 WBC 9.6 RBC 2.98 L Hgb 9.4 L Hct 29.1 L MCV 97.7 H MCH 31.5 MCHC 32.3 RDW Std Deviation 49.7 H RDW Coeff of John 13.9 Plt Count 271 MPV 10.4 Immature Gran % (Auto) 0.800 Neut % (Auto) 68.2 Lymph % (Auto) 19.6 Ransom % (Auto) 9.1 Eos % (Auto) 1.8 Baso % (Auto) 0.5 Absolute Neuts (auto) 6.5 Absolute Lymphs (auto) 1.88 Nucleated RBC % 0 Sodium 137 Potassium 4.3 Chloride 103 Carbon Dioxide 18.6 L Anion Gap 16 H BUN 32 H Creatinine 1.48 H Estim Creat Clear Calc 39.80 L Est GFR (MDRD) Non-Af 48 L BUN/Creatinine Ratio 21.4 H Glucose 95 Calcium 9.2 Troponin T High Sens 37 H Troponin T Hi Sens 2 Hr 30 H Radiography Diagnostic Testing: Clinical Impression(s) from Imaging Studies Chest X-Ray 03/18/25 22:00 IMPRESSION: NO ACUTE FINDINGS. Reading Location: [facility] Rhythm Strip Rhythm Strip: Sinus Rhythm Rate: 80 Ectopy: PVC(s) EKG Initial EKG: Attestation: I personally reviewed and interpreted this EKG as follows: Interpretation: Sinus Rhythm, No Acute Injury Pattern, RBBB and AV Block (1st deg) Prior EKG tracings: available for review Prior: Unchanged Discharge Plan Triage Chief Complaint: Shortness of Breath ED Provider: Kyler Sultana Dx/Rx/DC Orders Clinical Impression: Near syncope, Transient hypotension, Orthostatic hypotension, Occult GI bleeding, ABLA (acute blood loss anemia), Anticoagulated on apixaban Prescriptions: No Action cetirizine 10 mg tablet 10 mg PO DAILY ferrous sulfate 325 mg (65 mg iron) tablet 325 mg PO .COMPLEX Rx Instructions: 325 mg PO 3 tablets by mouth every Mon, Weds, and Fri after a meal; omega-3 fatty acids [Fish Oil Concentrate] 1,000 mg capsule 1,000 mg PO BID fluticasone propionate 50 mcg/actuation spray,suspension 2 spray INTRANASAL DAILY nitroglycerin 0.4 mg tablet, sublingual 0.4 mg SUBLINGUAL Q5-15M phenazopyridine 200 mg tablet 200 mg PO TID atorvastatin 40 MG tablet 20 mg PO QHS sotalol 80 MG tablet 40 mg PO BID omeprazole 20 MG capsule 40 mg PO DAILY aspirin 81 MG tablet,chewable 81 mg PO DAILY@0800 albuterol sulfate 1 INHALER inhaler 2 puff inhalation Q4H PRN PRN (Reason: Sob &/Or Wheezing) levothyroxine 112 MCG tablet 112 mcg PO DAILY trospium 20 MG tablet 20 mg PO BID apixaban 5 MG tablet 5 mg PO BID acetaminophen 325 MG tablet 975 mg PO Q8H PRN PRN (Reason: Pain) melatonin-pyridoxine HCl (B6) 1 EACH tablet 1 ea PO QHS PRN (Reason: Sleep) duloxetine [Cymbalta] 30 mg capsule,delayed release(DR/EC) 60 mg PO BREAKFAST duloxetine [Cymbalta] 30 mg capsule,delayed release(DR/EC) 30 mg PO QHS hydroxyzine HCl 10 mg tablet 20 mg PO DAILY PRN (Reason: anxiety) olodaterol 2.5 mcg/actuation mist 2 inh inhalation DAILY tamsulosin 0.4 mg capsule 0.4 mg PO QHS trazodone 100 mg tablet 100 mg PO QHS amiodarone 200 mg tablet 200 mg PO DAILY amlodipine 10 mg tablet 10 mg PO DAILY sennosides-docusate sodium 8.6-50 mg tablet 2 tab-cap PO QHS Artificial Tears (cmc) 1 % drops 1 drp ophthalmic (eye) BID losartan 25 mg tablet 50 mg PO DAILY Primary Care Provider: [facility] Referrals: [facility] [Primary Care Provider] - Print Language: Albanian What to do if you have Problems For any increased pain, shortness of breath, bleeding, nausea or vomiting, chestpain, or any unexpected problems, contact your Primary Care Provider. Call [facility] ([phone]) or report to the closest Emergency Room. Call 911 if necessary. 03/19/25 0049 <Electronically signed by Kyler Sultana MD> Cosigner Signature (if applicable): CC: [facility] ~ Signed ADDENDUM by Dr. Shiv Stark DO on 03/19/25 at 0333 Patient's case was signed out to me to follow-up on the CT abdomen pelvis. Patient CT abdomen pelvis with IV contrast showed moderate amount of fecal residue in the large bowel suggestive constipation. Partial small bowel obstruction noted. Transition zone in the right lower quadrant without evidenceof bowel perforation or pneumatosis intestinalis. 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 Minimal right pleural effusion. Bilateral basilar atelectatic pulmonary changes with a moderate sliding hiatal hernia. Diffuse thickening of the stomach suggestive of gastritis. Prior cholecystectomy. Percutaneous gastrostomy tube is in good position with its tip at the level of the gastric body. Gastroparesis/gastritis. Mild fullness of the left collecting system probably reflux. Percutaneous gastrostomy tube is in good position with its tipat the level of the gastric body. Called and spoke with the [place] general surgeon Dr. Crawford who accept patient for transfer. Did discuss this with the patient and significant other at bedside they are agreeable this plan all question concerns answered. 03/19/25 0333<Electronically signed by Shiv Stark DO> Cosigner Signature (if applicable): cc: [place] [facility] ~* Signed [facility] Work Phone: Discharge summary 03-19-2025 Note Date & Type Note Facility 03-19-2025 Discharge summary [facility] Radiology Diagnostic study note 03-19-2025 Note Date & Type Note Facility 03-19-2025 Radiology Diagnostic study note [facility] Imaging Services [address] [place] [id number] Abdomen/Pelvis W IV Cont ONLY MR#: [id number] Acct: [id number] Name: ALEJANDRO MOTT Rep #: [id number] : 1945 M 79 From: Farheen Gary MD PCP: [facility] Status: REG ER Study:Abdomen/Pelvis W IV Cont ONLY Date of E xam: 03/19/25 Exam# [id number] Ordering Dr: Denise Sultana MD PROCEDURE: ABDOMEN/PELVIS W IV CONT ONLY 03/19/2025 REASON FOR EXAM: DISTENSION, GI BLEEDING, RECENT FALL TECHNIQUE: Abdomen and pelvis CT with intravenous contrast. Coronal and Sagittal reconstruction series were provided. PATIENT PREPARATION: Per protocol ORAL CONTRAST TYPE: None. AMOUNT: mL CONTRAST: Isovue-350 VOLUME: 100 mL One or more dose reduction techniques were used (e.g., Automated exposure control, adjustment of the mA and/or kV according to patient size, use of iterative reconstruction technique. RADIATION DOSE SUMMARY: CTDlvol: 18.97 mGy DLP: 1047 mGycm COMPARISON: None. FINDINGS: Moderate amount of fecal residue in the large bowel suggestive of constipation. Partial small bowel obstruction. Transition zone in the right lower quadrant without evidence of bowel perforation or pneumatosis intestinalis. 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 Minimal right pleural effusion. Bilateral basilar atelectatic pulmonary changes. Moderate sliding hiatal hernia. Diffuse thickening of the stomach suggestive of gastritis. Prior cholecystectomy. Percutaneous gastrostomy tube is in good position with its tip at the level of the gastric body. Gastroparesis/gastritis. Mild fullness of the left collecting system, probably reflux. Percutaneous gastrostomy tube is in good position with its tip at the level of the gastric body. Scattered pancreatic cysts are noted with the largest measuring 1.2 cm. Findings are probably chronic. Normal liver. Normal extrahepatic biliary system. Normal spleen. Normal bilateral adrenal glands. Normal size of the right kidney. There is no right renal mass. There are no right renal calculi. There is no right hydronephrosis. Normal visualized right ureter. Normal size of the left kidney. There is no left renal mass. There are no leftrenal calculi. There is no demonstrated peritoneal fluid. Calcified atheromatous plaques of the tortuous ectatic abdominal aorta. Normal inferior vena cava. Normal retroperitoneum. Normal urinary bladder. There is no pelvic mass lesion or lymphadenopathy. There is no pelvic fluid. Diffuse spondylosis. Osteopenia. Occluded proximal aspect of the right superficial femoral artery, chronic finding. CT/Abdomen/Pelvis W IV Cont ONLY IMPRESSION: Moderate amount of fecal residue in the large bowel suggestive of constipation. Partial small bowel obstruction. Transition zone in the right lower quadrant without evidence of bowel perforation or pneumatosis intestinalis. 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 Minimal right pleural effusion. Bilateral basilar atelectatic pulmonary changes. Moderate sliding hiatal hernia. Diffuse thickening of the stomach suggestive of gastritis. Prior cholecystectomy. Percutaneous gastrostomy tube is in good position with its tip at the level of the gastric body. Gastroparesis/gastritis. Mild fullness of the left collecting system, probably reflux. Percutaneous gastrostomy tube is in good position with its tip at the level of the gastric body. Reading Location: [id number] CC: Dr. Kyler Sultana MD; [facility] ~ Track Grinder: Signed [facility] Radiology Diagnostic study note 03-18-2025 Note Date & Type Note Facility 03-18-2025 Radiology Diagnostic study note [facility] Imaging Services [address] [place] [address] Chest PA and Lateral MR#: [id number] Acct: [id number] Name: ALEJANDRO MOTT Rep #: [id number] : 1945 M 79 From: Nikia Yadav MD PCP: [facility] Status: REG ER Study:Chest PA and Lateral Date of Exam: 03/18/25 Exam# [id number] Ordering Dr: Denise Sultana MD PROCEDURE: CHEST PA AND LATERAL 03/18/2025 REASON FOR EXAM: SOB TECHNIQUE: Frontal and lateral views of the chest. COMPARISON: Chest radiograph 08/24/2018. FINDINGS: Hardware: Prior median sternotomy and CABG. Heart: The heart size is normal. Mediastinum: The mediastinal contour is stable. Lungs: Low lung volumes. Bibasilar atelectasis/scarring. No focal consolidation, pleural effusion or pneumothorax. Bones: Degenerative changes are identified within the thoracic spine. RAD/Chest PA and Lateral IMPRESSION: NO ACUTE FINDINGS. Reading Location: [id number] CC: Dr. Kyler Sultana MD; [facility] ~ Track Grinder: Signed [facility] Note 01-10-2024 Telephone Encounter - Felecia Graham MA - 01/10/2024 10:35 AM EDT Note Date & Type Note Facility 01-10-2024 Miscellaneous Notes Formattin g of this note might be different from the original. Received referral from [facility] for Hiatal Hernia. Left voicemail for patient to call the office to schedule. Felecia Graham MA documented in this encounter [facility] Discharge summary 03-30-2023 Note Date & Type Note Facility 03-30-2023 Discharge summary Note Date/Time March 30, 2023 12:41pm [facility] Medical Records Department [address] [place] [address] Emergency Department Summary 03/30/23 MR#: [id number] Acct: [id number] Name: ALEJANDRO MOTT Rep #:[id number] : 1945 77 From: Mikael Jacques DO [facility] Status:REG ER Location: ED HPI History of [...] to use a walker. No direct trauma. 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 Call [facility] ([phone]) or report to the closest Emergency Room. Call 911 if necessary. 03/30/23 1613 <Electronically signed by Mikael Jacques DO> Cosigner Signature (if applicable): CC: [facility] ~ Signed [facility] Work Phone: Discharge summary Note Date & Type Note Facility Discharge summary Note Date/Time January 08, 2024 11:53am [facility] Medical Records Department [address] [place] [address] Emergency Department Summary 01/08/24 MR#: [id number] Acct: [id number] Name: ALEJANDRO MOTT Rep #:[id number] : 1945 78 From: Kyler Sultana MD PCP: [facility] [facility] Status:REG ER Location: ED HPI History [...] about [address] Pate[address] 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 Call [facility] ([phone]) or report to the closest Emergency Room. Call 911 if necessary. 01/08/24 1226 <Electronically signed by Kyler Sultana MD> Cosigner Signature (if applicable): CC: [facility] ~ Signed [facility] Work Phone: Evaluation note Note Date & Type Note Facility Evaluation note No assessment information availa ble [facility] Work Phone: History and physical note Note Date & Type Note Facility History and physical note Note Date/Time January 08, 2024 12:34pm [facility] Medical Records Department [address] [place] [address] H&P Exam - Surgical 01/08/24 1230 MR#: [id number] Acct: [id number] Name: ALEJANDRO MOTT Rep #:[id number] : 1945 78 From: Carlo fulton MD PCP: [facility] Status:REG ER Location: ED HPI - [...] time this happened was 10 years ago. 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 Carlo Cristina MD Pager: [facility] [address] [place] [address], [address] [place] [address] Office: 01/08/24 1233 <Electronically signed by Carlo Cristina MD> Cosigner Signature (if applicable): CC: Dr. Carlo Cristina MD; [facility]~ Signed [facility] Work Phone: Reason for referral (narrative) Note Date & Type Note Facility Reason for referral (narrative) No reason for referral information available [facility] Work Phone: Summary Purpose Family History No [...] No March 30, 2023 12:31pm Power of Food Broker No March 30 12:31pm Advance Directive Response Recorded Date/ Time Living Will No January 08, 2024 11:18am Power of Food Broker No January 07 11:18am Advance Directive Response Recorded Date/ Time Do you have a Healthcare Power of Food Broker? Yes March 18, 2025 9:21pm Chief Complaint and Reason for Visit Chief Complaint LEG PAIN Chief Complaint FB THROAT FB THROAT Chief Complaint Admit Date sob March 18, 2025 9:11p m Additional Source Comments (unrecognized sect ion and content) No Status Records FoundNo Status Records FoundNo Status Records FoundNo Status Records Found INFORMATION SOURCE (unrecogn ized section and content) DATE CREATED AUTHOR 11/05/2018 [facility] ([place]) DATE CREATED AUTHOR AUTHOR'S ORGANIZ ATION 01/10/2024 [facility] DATE CREATED AUTHOR AUTHOR'S ORGANIZ ATION 01/19/2025 [facility] DATE CREATED AUTHOR AUTHOR'S ORGANIZ ATION 03/24/2025 [facility] Care Teams (unrecognized sec tion and content) Team Status: Active Member Role Status Dates Dr. Eric Louise MD Family Provider Active [facility] Primary Care Provider Active Team Status: Active Member Role Status Dates [facility] Primary Care Provider Active Dr. Arnie Matthesw MD Attending Provider Active Team Status: Inactive Member Role Status Dates [facility] Primary Care Provider Active Dr. Mikael Jacques DO Referring Provider, Emergency Provider Active Team Status: Active Member Role Status Dates [facility] Primary Care Provider Active Dr. Kyler Sultana MD Emergency Provider Active Dr. Carlo Cristina MD Attending Provider Active Team Status: Inactive Member Role Status Dates [facility] Primary Care Provider Active Dr. Kyler Sultana MD Emergency Provider Active [employer] Relationship Specialty Start Date End Date Shana Becerra (Pa) [address] [place] [address] PCP - General Family Medicine 04/22/18 Prasanna Marie MD [address] [place] [address] Physician Radiation Oncology 04/22/18 Team Status: Active Member Role Status Dates [facility] Primary Care Provider Active Team Status: Inactive Member Role Status Dates [facility] Primary Care Provider Active Start: March 18, 2025 End: March 19, 2025 Dr. Kyler Sultana MD Referring Provider Active Start: March 18, 2025 End: March 19, 2025 Dr. Kyler Sultana MD Emergency Provider Active Start: March 18, 2025 End: March 19, 2025 Goals (unrecognized section and content) Goals may be documented in a n alternate sectionGoals may be documented in an alternate sectionGoals may be documented in an alternate section Source Comments (unrecognize d section and content) In the event this informatio n is protected by the Federal Confidentiality of Alcohol and Drug Abuse Patient Records regulations: The Federal rules restrict any use of the information to criminally investigate or prosecute any alcohol or drug abuse patient.[facility] Reason for Visit (unrecogniz ed section and [...] BE BASED ON THE PRIMARY CLINICAL RECORDS. [facility] [employer] [facility]. provides no warranty or guarantee of the accuracy or completeness of information in this document.
[2025-04-03 06:13] LABS: Lactic Acid 3.1 mmol/L (0.0-2.0)
[2025-04-03 06:14] LABS: ALB/GLOB Ratio 1.3 RATIO (0.9-2.4); AST(SGOT) 15 U/L (<=37); Alanine Aminotransfer ALT/SGPT 9 U/L (<=46); Albumin, Serum 3.8 g/dL (3.4-4.8); Alkaline Phosphatase 81 U/L (40-129); Anion Gap 16 (5-15); BUN 35 mg/dL (4-19); BUN/Creat Ratio 20.2 RATIO (10-20); Calcium,Total 9.1 mg/dL (7.6-11.0); Carbon Dioxide 18.8 mmol/L (21.0-32.0); Chloride 101 mmol/L (98-108); Creatinine, Serum 1.72 mg/dL (0.70-1.20); EST Glomerular Filtration Rate 40 (>60); Estimated Creatinine Clearance 34.24 ml/min (50-250); Glucose 155 mg/dL (70-99); Lipase 56 U/L (13-75); Potassium 4.2 mmol/L (3.3-5.1); Protein, Total 6.8 g/dL (5.9-8.4); Sodium Level 136 mmol/L (133-145); Total Bilirubin 0.34 mg/dL (0.00-1.30)
[2025-04-03] MEDS: Piperacil/Tazobactam 4.5 GM in 0.9% Normal Saline (100mL MB+) 100 ML IV (08:31)
[2025-04-03] MEDS: metroNIDAZOLE 500 MG/100 ML BAG 100 MG IV (08:31)
[2025-04-03 09:37] LABS: Reflex Lactate? Y
[2025-04-03 10:30] LABS: Lactic Acid 2.1 mmol/L (0.0-2.0)
--- NOTE | 2025-04-03 14:00 | ED.RN ---
report given to [facility]
== END 2025-04-03 13:45 ==
PROVIDERS: Emergency Provider Emergency Medicine; Visit Provider Emergency Medicine
DX: K56.600 Partial intestinal obstruction, unspecified as to cause (principal); E11.9 Type 2 diabetes mellitus without complications; I25.10 Atherosclerotic heart disease of native coronary artery without angina pectoris; G47.33 Obstructive sleep apnea (adult) (pediatric); Z87.891 Personal history of nicotine dependence; Z95.1 Presence of aortocoronary bypass graft
CPT/HCPCS: 74177; 80053; 83605; 83690; 85025; 87040; 96365; 96366; 96367; 96375; 96376; 99285; Q9967; A4216; J2405